=== PATIENT | male | born 1950 | race Caucasian/White ===

== ENCOUNTER 2023-04-12 10:48 | Outpatient (OUT) | payer MEDICARE, OTHER, SELFPAY ==
[2023-04-12 11:22] LABS: Basophils Percent Auto 0.3 % (0.2-2.0); Eosinophils Absolute Auto 0.2 10^3/uL (0.0-0.7); Eosinophils Percent Auto 2.8 % (0.9-7.0); Hematocrit 38.9 % (42.0-54.0); Hemoglobin 13.3 g/dL (14.0-18.0); Immature Granulocytes Abs Auto 0.01 10^3/uL (0.00-0.03); Immature Granulocytes Pct Auto 0.2 % (0.0-0.5); Lymphocytes Absolute Auto 2.2 10^3/uL (1.2-3.8); Lymphocytes Percent Auto 35.5 % (20.5-60.0); Mean Corpuscular HGB Conc 34.2 g/dL (29.9-35.2); Mean Corpuscular Hemoglobin 31.4 pg (25.9-34.0); Mean Corpuscular Volume 91.7 fL (80.0-94.0); Mean Platelet Volume 8.8 fL (9.5-13.5); Monocytes Absolute Auto 0.6 10^3/uL (0.3-0.8); Monocytes Percent Auto 9.1 % (1.7-12.0); Neutrophils Absolute Auto 3.2 10^3/uL (1.4-6.5); Neutrophils Percent Auto 52.1 % (43.0-75.0); Platelet Count 186 10^3/uL (150-450); Red Blood Count 4.24 10^6/uL (4.70-6.10); Red Cell Distribution Width 12.1 % (11.0-15.0); White Blood Count 6.1 10^3/uL (4.0-11.0)
[2023-04-12 12:09] LABS: Percent Iron Saturation 31.5 %
== END 2023-04-12 10:49 | disposition home or self-care (01) ==
LOC: LAB 10:54
PROVIDERS: PCP Internal Medicine; Visit Provider Internal Medicine
DX: D64.9 Anemia, unspecified (principal)
CPT/HCPCS: 36415; 82607; 82728; 82746; 83540; 83550; 85025

== ENCOUNTER 2023-05-07 14:47 | Outpatient (OUT) | payer MEDICARE, OTHER, SELFPAY ==
[2023-05-07 15:13] LABS: Basophils Percent Auto 0.5 % (0.2-2.0); Eosinophils Absolute Auto 0.2 10^3/uL (0.0-0.7); Eosinophils Percent Auto 3.8 % (0.9-7.0); Hemoglobin 13.7 g/dL (14.0-18.0); Immature Granulocytes Abs Auto 0.01 10^3/uL (0.00-0.03); Immature Granulocytes Pct Auto 0.2 % (0.0-0.5); Lymphocytes Absolute Auto 2.4 10^3/uL (1.2-3.8); Lymphocytes Percent Auto 39.9 % (20.5-60.0); Mean Corpuscular HGB Conc 34.3 g/dL (29.9-35.2); Mean Corpuscular Hemoglobin 31.5 pg (25.9-34.0); Mean Platelet Volume 8.3 fL (9.5-13.5); Monocytes Absolute Auto 0.7 10^3/uL (0.3-0.8); Monocytes Percent Auto 11.4 % (1.7-12.0); Neutrophils Absolute Auto 2.7 10^3/uL (1.4-6.5); Neutrophils Percent Auto 44.2 % (43.0-75.0); Platelet Count 199 10^3/uL (150-450); Red Blood Count 4.35 10^6/uL (4.70-6.10); White Blood Count 6.1 10^3/uL (4.0-11.0)
[2023-05-07 15:39] LABS: Percent Iron Saturation 36.6 %
[2023-05-07 15:47] LABS: Alanine Aminotransferase 26 U/L (16-63); Albumin Globulin Ratio 1.1; Albumin Level 3.9 g/dL (3.4-5.0); Alkaline Phosphatase 61 U/L (46-116); Anion Gap 9.6; Aspartate Amino Transferase 26 U/L (15-37); BUN Creatinine Ratio 15.3; Bilirubin Total 0.8 mg/dL (0.2-1.0); Calcium 8.4 mg/dL (8.5-10.1); Carbon Dioxide 30.3 mmol/L (21.0-32.0); Chloride 103 mmol/L (98-107); Estimated GFR (African America >60 (>=60); Estimated GFR (Non-African Ame >60 (>=60); Globulin 3.5 g/dL; Glucose 81 mg/dL (74-106); Potassium 3.9 mmol/L (3.5-5.1); Sodium 139 mmol/L (136-145); Total Protein 7.4 g/dL (6.4-8.2)
[2023-05-07 16:05] LABS: Creatinine Urine Random 19.84 mg/dL (20.00-300.00); Total Protein Urine Random <6.0 mg/dL (<=11.9)
== END 2023-05-07 14:48 | disposition home or self-care (01) ==
PROVIDERS: PCP Internal Medicine; Visit Provider Internal Medicine
DX: I10 Essential (primary) hypertension (principal); R60.1 Generalized edema; D64.9 Anemia, unspecified
CPT/HCPCS: 36415; 80053; 82570; 82607; 82728; 82746; 83540; 83550; 84156; 84443; 85025

== ENCOUNTER 2023-05-16 09:33 | Outpatient (OUT) | payer MEDICARE, OTHER, SELFPAY ==
--- NOTE | 2023-05-16 10:09 | CA_ITS ---
Patient: ROYAL BELLAMY Exam Date: 05/16/2023 : 1950 Gender:M Ordering : DR PEEWEE AALNIS D.O. Admission #: [id number] Family : Order #: [id number] CLICK HERE TO VIEW EXAM ECHOCARDIOGRAM REPORT PROCEDURE: CA ECHO DOPPLER COMPLETE INDICATIONS: Arteriosclerotic heart disease, edema, heart murmur, hypertension, myocardial infarct, PTCAx1 COMPARISON: None. DESCRIPTION: COMPLETE ECHOCARDIOGRAM Real-time transthoracic echocardiography with 2D, M-mode, spectral and color flow Doppler performed. QUALITY: Technical quality was good. LEFT VENTRICLE: Normal chamber size. Mild concentric left ventricular hypertrophy. LV EF: Global left ventricular systolic function is normal; visually estimated ejection fraction is 55 to 60%. No significant wall motion abnormalities. DIASTOLIC: Normal diastolic function. ATRIAL SEPTUM: Inadequately seen. LEFT ATRIUM: Normal chamber size. RIGHT ATRIUM: Normal chamber size. RIGHT VENTRICLE: Normal chamber size. Normal right ventricular systolic function. TRICUSPID VALVE: Normal mobility and thickness. Mild regurgitation. No evidence of pulmonary hypertension. RVSP 34 mmHg MITRAL VALVE: Normal mobility and thickness. No evidence of mitral valve stenosis. There is no mitral annular calcification. Mild mitral regurgitation. AORTIC VALVE: Normal trileaflet appearance. No visible sclerosis. Normal leaflet mobility. No evidence of aortic valve stenosis. No aortic regurgitation. AORTIC ROOT: Normal diameter and appearance. PULMONIC VALVE: Normal thickness and mobility. No stenosis. Trivial regurgitation. PERICARDIUM: No evidence of pericardial effusion. IVC: Collapses with inspirations. PLEURA: CONCLUSION: 1. Global left ventricular systolic function is normal; visually estimated ejection fraction is 55 to 60% 2. Mild left ventricular hypertrophy 3. Normal diastolic function 4. The right ventricle is normal in size and systolic function 5. Mild mitral regurgitation Adult Echocardiography Procedure Report Left Ventricle LVEDD (3.7 - 5.6 cm): 5.55 cm LVESD (2.2 - 4.0 cm): 4.30 cm LVIVS thickness (0.6 - 1.2 cm): 1.24 cm LVPW thickness (0.5 - 1.0 cm): 1.11 cm e': 0.11 m/s E - e': 6.54 LVOT Max Gradient: 3.57 mm[Hg] LVOT Area (cm2): 0.95 m/s Peak Velocity (LVOT): 0.95 m/s Mean Velocity (LVOT): 0.63 m/s LVOT Diameter 2.50 cm Left Atrium LA Volume Index (2D A2C): 31.46 ml/m2 Left Atrium Systolic Dimension: 5.12 cm Mitral Valve MV E to A Ratio: 0.90 Mitral Valve A-Wave Peak Velocity: 0.78 m/s Mitral Valve E-Wave Peak Velocity: 0.70 m/s Right Ventricle Aorta AO Root Diam: 4.06 cm Ascending Ao Diam: 3.34 cm Aortic Valve AoV Area (Peak Levi): 3.71 cm2, 3.71 cm2 AoV Area (VTI): 3.42 cm2, 3.42 cm2 Peak Velocity(Antegrade Flow): 1.25 m/s Peak Gradient(Antegrade Flow): 6.27 mm[Hg] Mean Velocity(Antegrade Flow): 0.89 m/s Mean Gradient(Antegrade Flow): 3.55 mm[Hg] Velocity Time Integral: 32.27 cm Tricuspid Valve Peak Velocity (Regurgitant Flow): 2.78 m/s Pulmonic Valve Peak Velocity: 1.37 m/s Peak Gradient: 7.52 mm[Hg], 7.41 mm[Hg] Right Atrium Right Atrium Systolic Pressure: 34.52 ml, 34.52 ml Dictated by: Leonel Hassan M.D. on 05/16/2023 at 13:42 Approved by: Leonel Hassan M.D. on 05/16/2023 at 13:45
== END 2023-05-16 09:34 | disposition home or self-care (01) ==
LOC: CARD 09:34
PROVIDERS: PCP Internal Medicine; Visit Provider Internal Medicine
DX: I25.10 Atherosclerotic heart disease of native coronary artery without angina pectoris (principal); R60.1 Generalized edema; R01.1 Cardiac murmur, unspecified; I34.0 Nonrheumatic mitral (valve) insufficiency
CPT/HCPCS: 93306

== ENCOUNTER 2023-06-10 08:48 | Outpatient (OUT) | payer MEDICARE, OTHER, SELFPAY ==
--- NOTE | 2023-06-10 08:50 | VEIN_ITS ---
Patient: ROYAL BELLAMY Exam Date: 06/10/2023 : 1950 Gender:M Ordering : DR JARED WEST M.D. Admission #: [id number] Family : Order #: [id number] CLICK HERE TO VIEW EXAM RADIOLOGY REPORT PROCEDURE: VC EXT VENOUS REFLUX ANNALEE LMTD COMPARISON: None. INDICATIONS: Pain due to varicose veins of bilateral legs I83.813 TECHNIQUE: Duplex imaging of the lower extremity to assess the deep and superficial venous system for the presence of deep or superficial venous incompetence and to document the location and severity of disease. The study includes evaluation of the great saphenous vein (GSV), anterior accessory saphenous vein (AASV) and small saphenous vein (SSV). Patient scanned in reverse Trendelenburg and standing. FINDINGS: RIGHT LOWER EXTREMITY: Saphenofemoral Junction Reflux: Yes 6.0mm 1.3 sec GSV: Diam (mm) Reflux/ Time (sec) Proximal Thigh 3.1 No Mid Thigh 2.1 Yes 0.4 Distal Thigh 1.7 No Prox Calf 2.7 Yes 0.5 Mid Calf 3.6 No Saphenopopliteal Junction Reflux: 5.9mm Yes 1.3 SSV: Proximal Calf 5.6 Yes 0.7 Mid Calf 5.4 Yes 1.5 AASV: Proximal Thigh 3.1 No Mid Thigh Distal Thigh Thrombi: No acute or chronic thrombus visualized Compressibility: Normal Flow: Normal Manufacturing Intern: Mid/med calf 4.4mm with 0.5s reflux. Tech Note: Incompetent SFJ and SSV. Patent varicose vein prox/med calf 2.9mm with 0.7s reflux. Patent varicose vein dist/post calf 2.2mm with 1.1s reflux. LEFT LOWER EXTREMITY: Saphenofemoral Junction Reflux: Yes 6.0 mm 1.2 sec GSV: Diam (mm) Reflux/Time (sec) Proximal Thigh 4.4 No Mid Thigh 3.5 No Distal Thigh 1.4 No Prox Calf 2.5 No Mid Calf 2.4 No Saphenopopliteal Junction Relux: 6.2 mm Yes 1.4 SSV: Proximal Calf 2.8 No Mid Calf 3.0 No AASV: Not present Thrombi: No acute or chronic thrombus visualized Compressibility: Flow: Manufacturing Intern: Mid/med calf 2.9mm with 0s reflux. Tech Note: Incompetent SPJ. Patent varicose vein mid/med calf 2.1mm with 0.6s reflux. CONCLUSION: 1. Mild venous insufficiency with borderline dilatation of the right small saphenous vein 2. Saphenopopliteal junction reflux in the left small saphenous vein 3. No significant incompetent varicose veins Dictated by: Jared West MD on 06/10/2023 at 09:52 Approved by: Jared West MD on 06/10/2023 at 09:54
--- NOTE | 2023-06-10 08:50 | VEIN_ITS ---
Patient: ROYAL EBLLAMY Exam Date: 06/10/2023 : 1950 Gender:M Ordering : DR JARED WEST M.D. Admission #: [id number] Family : Order #: [id number] CLICK HERE TO VIEW EXAM RADIOLOGY REPORT PROCEDURE: [facility] - OFFICE VISIT INITIAL COMPARISON: None. PROGRESS NOTES: 72-year-old male who presents with a 2 year history of lower extremity pain and swelling and varicose veins. The patient was referred by Dr. Cecilio horne. The patient has been worked up for cardiovascular disease by cardiology with no findings. The patient has been wearing [id number] compression stockings for 6 months with minimal improvement. Patient's symptoms are exacerbated by prolonged sitting and standing and are partially relieved by rest, leg elevation and over the counter oral analgesics. 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 The patient's daughter works in healthcare. The patient denies any signs and symptoms to suggest arterial ischemia. The patient describes a family history significant for aortic aneurysm. The patient quit smoking in 1984. Social alcohol use. No illicit drug use. The patient's past medical history significant for hyperlipidemia of benign hypertension, BPH. Past surgical history significant for cardiac stenting in 2001 left inguinal hernia and cholecystectomy. No history of deep venous thrombus or pulmonary embolus. The patient does complain of bunions which has affected his ability to walk, the patient L exercises with stationary bike and rowing machine. See separate history and physical for medication list. No prior treatment for varicose or spider veins. Nursing notes were reviewed. After history and physical exam I discussed at length the pathophysiology of lower extremity swelling and possible treatments, therapies and strategies available. I believe the patient's symptoms are likely multifactorial related to age, genetics and hypertension with possible mild connection to veins in the right ankle and foot. No significant venous disease that requires treatment at this time. The patient has mild venous insufficiency in the right small saphenous vein but no symptoms in this area Ultrasound venous reflux study performed the same day was discussed at length with the patient. The report demonstrates mild venous insufficiency right small saphenous vein. No significant dilated varicose veins. PHYSICAL EXAM: The right leg demonstrates moderate reticular and spider veins most significant along the right ankle and hindfoot. There is moderate, pitting edema distal 3rd of the right leg extending to the ankle. No hemosiderin staining or ulceration. The left leg demonstrates scattered reticular and spider veins. There is mild edema distal 3rd of the left leg extending to the ankle. No hemosiderin staining or ulceration. Both thighs, legs and feet were symmetrically warm to the touch. Good posterior tibial and dorsalis pedis pulses were present bilaterally. VEIN/VC Facility EST Comprehensive IMPRESSION: 1. Mild right small saphenous vein venous insufficiency 2. No significant lower extremity varicose veins, moderate right medial ankle and hindfoot reticular veins 3. Moderate right and mild left lower extremity subcutaneous edema 4. No flow significant arterial disease 5. CEAP: C3, Ep, As, Pr PLAN: 1. Injection sclerotherapy of right medial ankle and foot reticular veins 2. Long-term use of bilateral knee high 20-30 mm compression stockings 3. Continued elevation of legs and physical activity for symptomatic relief Nurse notes, history and physical were reviewed and confirmed, see attached forms. The nurse was present throughout the physical exam and consultation Dictated by: Jared West MD on 06/10/2023 at 13:52 Approved by: Jared West MD on 06/10/2023 at 14:06
== END 2023-06-10 08:49 | disposition home or self-care (01) ==
LOC: VC 08:48
PROVIDERS: PCP Internal Medicine; Visit Provider Radiology Diagnostic Radiology
DX: I87.2 Venous insufficiency (chronic) (peripheral) (principal); I83.813 Varicose veins of bilateral lower extremities with pain
CPT/HCPCS: 93970; G0463

== ENCOUNTER 2024-01-24 06:59 | Outpatient (OUT) | payer MEDICARE, OTHER, SELFPAY ==
[2024-01-24 07:20] LABS: Basophils Percent Auto 0.5 % (0.2-2.0); Eosinophils Absolute Auto 0.2 10^3/uL (0.0-0.7); Eosinophils Percent Auto 3.5 % (0.9-7.0); Hematocrit 39.7 % (42.0-54.0); Hemoglobin 13.2 g/dL (14.0-18.0); Immature Granulocytes Abs Auto 0.01 10^3/uL (0.00-0.03); Immature Granulocytes Pct Auto 0.2 % (0.0-0.5); Lymphocytes Percent Auto 33.9 % (20.5-60.0); Mean Corpuscular HGB Conc 33.2 g/dL (29.9-35.2); Mean Corpuscular Hemoglobin 31.2 pg (25.9-34.0); Mean Corpuscular Volume 93.9 fL (80.0-94.0); Mean Platelet Volume 8.8 fL (9.5-13.5); Monocytes Absolute Auto 0.7 10^3/uL (0.3-0.8); Monocytes Percent Auto 11.8 % (1.7-12.0); Neutrophils Percent Auto 50.1 % (43.0-75.0); Platelet Count 196 10^3/uL (150-450); Red Blood Count 4.23 10^6/uL (4.70-6.10); Red Cell Distribution Width 12.3 % (11.0-15.0); White Blood Count 5.9 10^3/uL (4.0-11.0)
[2024-01-24 07:55] LABS: Alanine Aminotransferase 25 U/L (16-63); Albumin Level 3.5 g/dL (3.4-5.0); Alkaline Phosphatase 72 U/L (46-116); Anion Gap 12.5; Aspartate Amino Transferase 25 U/L (15-37); Calcium 8.9 mg/dL (8.5-10.1); Carbon Dioxide 25.6 mmol/L (21.0-32.0); Chloride 104 mmol/L (98-107); Chol HDL Ratio 1.9; Cholesterol 110 mg/dL (<=200); Estimated GFR (African America >60 (>=60); Estimated GFR (Non-African Ame >60 (>=60); Globulin 3.4 g/dL; Glucose 114 mg/dL (74-106); HDL Cholesterol 59 mg/dL (40-60); LDL Cholesterol Calculated 42.4 mg/dL; Potassium 4.1 mmol/L (3.5-5.1); Sodium 138 mmol/L (136-145); Thyroid Stimulating Hormone 3.854 uIU/mL (0.358-3.740); Total Protein 6.9 g/dL (6.4-8.2); Triglycerides 43 mg/dL (<=150); VLDL CHOLESTEROL 8.6 mg/dL
[2024-01-24 08:38] LABS: Prostate Specific Antigen Scrn 0.49 ng/mL (<=4.00)
== END 2024-01-24 07:00 | disposition home or self-care (01) ==
LOC: LAB 07:02
PROVIDERS: PCP Internal Medicine; Visit Provider Internal Medicine
DX: Z12.5 Encounter for screening for malignant neoplasm of prostate (principal); E03.9 Hypothyroidism, unspecified; I25.10 Atherosclerotic heart disease of native coronary artery without angina pectoris; N40.1 Benign prostatic hyperplasia with lower urinary tract symptoms; E78.00 Pure hypercholesterolemia, unspecified; I10 Essential (primary) hypertension
CPT/HCPCS: 36415; 80053; 80061; 84443; 85025; G0103

== ENCOUNTER 2024-03-09 06:51 | Outpatient (OUT) | payer MEDICARE, OTHER, SELFPAY ==
--- OUTSIDE RECORDS SUMMARY | 2024-03-09 06:55 | XMS_ITS | CCD ---
Author Organization [facility] Care Team Providers Care Admissions Representative Name Role Phone Keith Lima DO Primary Care Provider BABIUCH, MOUNA Referring Unavailable BABIUCH, MOUNA Attending Unavailable BALL, KEITH Queen Primary Care Unavailable BABIUCH, MOUNA Attending Unavailable BABIUCH, MOUNA Referring Unavailable BALL, KEITH Queen Primary Care Unavailable BALL, KEITH Queen Primary Care Unavailable BABIUCH, MOUNA Attending Unavailable BABIUCH, MOUNA Referring Unavailable BABIUCH, MOUNA Attending Unavailable BALL, KEITH Queen Primary Care Unavailable BABIUCH, MOUNA Attending Unavailable BABIUCH, MOUNA Referring Unavailable BALL, KEITH Queen Primary Care Unavailable BABIUCH, MOUNA Referring Unavailable BABIUCH, MOUNA Attending Unavailable BALL, KEITH Queen Primary Care Unavailable Keith Lima DO Primary Care Provider Keith Lima Unavailable REQUEST, DR TUCKER LISTED Attending Unavaila ble REQUEST, DR TUCKER LISTED Consulting Unavaila ble REQUEST, DR TUCKER LISTED Admitting Unavaila ble BALL, DR VIDES Primary Care Unavailable BALL, DR VIDES Attending Unavailable BALL, DR VIDES Consulting Unavailable BALL, DR VIDES Primary Care Unavailable BALL, DR VIDES Admitting Unavailable BALL, DR VIDES Attending Unavailable BALL, DR VIDES Consulting Unavailable BALL, DR VIDES Primary Care Unavailable BALL, DR VIDES Admitting Unavailable Allergies Allergy Classification Reported Allergen(s) Allergy Type Date of Onset Reaction(s) Facility (10 sources) Penicillins; Translations: [PENICILLINS] Drug Allergy 5 [facility] (20 sources) Sulfonamides (Antibiotic); Translations: [SULFA (SULFONAMIDE ANTIBIOTICS)] Drug Allergy 8 [facility] (4 sources) Penicillin Drug Allergy Unknown [facility] Other (1 source) Penicillins Drug allergy (disorder) 6 [facility] (1 source) Sulfonamides (Antibiotic) Drug allergy (disorder) 6 [facility] (7 sources) Substance with penicillin structure and antibacterial mechanism of action (substance) Drug allergy Unknown [facility] Other Medications Current Medications Medication Drug Class(es) Dates Sig (Normalized) Sig (Original) atorvastatin 80 mg oral tablet (20 sources) HMG-CoA Reductase Inhibitor take 1 tablet by mouth every twenty-four hours Atorvastatin Calcium 80 MG 1 tablet Orally Once a day Active Comment on above: Take 80 mg by mouth once daily. benoxinate hydrochloride 4 mg/ml / fluorescein sodium 2.5 mg/ml ophthalmic solution (4 sources) Diagnostic Dye Start: 12-11-2022 End: 12-11-2022 fluorescein-benoxi nena 0.25-0.4 % 1 Drop (FLURESS) Start: 07-17-2022 End: 07-17-2022 fluorescein-benoxinate 0.25- 0.4 % 1 Drop (FLURESS) Start: 05-29-2022 End: 05-29-2022 fluorescein-benoxinate 0.25- 0.4 % 1 Drop (FLURESS) Start: 04-03-2022 End: 04-03-2022 fluorescein-benoxinate 0.25- 0.4 % 1 Drop (FLURESS) ciprofloxacin 3 mg/ml ophthalmic solution (1 source) Quinolone Antimicrobial Start: 11-04-2023 take 2 drop(s) into the eye(s) four times daily Ciprofloxacin HCl 0.3 % 2 drops in affected eye Ophthalmic qid for 5 days Oct, Active levothyroxine sodium 0.05 mg oral tablet (5 sources) l-Thyroxine Start: 05-14-2023 take 1 tablet by mouth once daily in the morning Levothyroxine Sodium 50 MCG 1 tablet in the morning on an empty stomach Orally Once a day for 30 days Apr, Active take 1 tablet by iam th once daily in the morning Levothyroxine Sodium 50 MCG TAKE 1 TABLE T BY MOUTH EVERY DAY IN THE MORNING ON AN EMPTY STOMACH FOR 30 DAYS Active phenylephrine hydrochloride 25 mg/ml ophthalmic solution (4 sources) alpha-1 Adrenergic Agonist Start: 12-11-2022 End: 12-11-2022 PHENYLephrine 2.5 % 1 Drop (AK-DILATE, DAO-SYNEPHRINE) Start: 07-17-2022 End: 07-17-2022 PHENYLephrine 2.5 % 1 Drop ( AK-DILATE, DAO-SYNEPHRINE) Start: 05-29-2022 End: 05-29-2022 PHENYLephrine 2.5 % 1 Drop ( AK-DILATE, DAO-SYNEPHRINE) Start: 04-03-2022 End: 04-03-2022 PHENYLephrine 2.5 % 1 Drop ( AK-DILATE, DAO-SYNEPHRINE) proparacaine hydrochloride 5 mg/ml ophthalmic solution (2 sources) Local Anesthetic Start: 05-29-2022 End: 05-29-2022 proparacaine 0.5 % 1 Drop (ALCAINE) Start: 04-03-2022 End: 04-03-2022 proparacaine 0.5 % 1 Drop (A LCAINE) ramipril 5 mg oral capsule (20 sources) Angiotensin Converting Enzyme Inhibitor take 1 capsule by mouth every twenty-four hours Ramipril 5 MG 1 capsule Orally Once a day Active Comment on above: Take 5 mg by mouth o nce daily. tropicamide 10 mg/ml ophthalmic solution (4 sources) Anticholinergic Start: 023 End: 023 tropicamide 1 % 1 Drop (MYDRIACYL) Start: 07-17-2022 End: 07-17-2022 tropicamide 1 % 1 Drop (MYDR IACYL) Start: 05-29-2022 End: 05-29-2022 tropicamide 1 % 1 Drop (MYDR IACYL) Start: 04-03-2022 End: 04-03-2022 tropicamide 1 % 1 Drop (MYDR IACYL) Completed/Discontinued Medications Medication Drug Class(es) Dates Sig (Normalized) Sig (Original) aspirin 81 mg oral tablet (20 sources) Platelet Aggregation Inhibitor, Nonsteroidal Anti-inflammatory Drug Start: 10-26-2004 ASPIRIN 81 MG TABLET Take one (1) tablet daily . 0 10/26/2004 Active take 1 tablet by iam th every twenty-four hours Aspirin 81 81 MG 1 tablet Orally Once a day Active Comment on above: Take one (1) tablet daily . bimatoprost (6 sources) Prostaglandin Analog End: take 1 drop(s) into the eye(s) once daily at bedtime BIMATOPROST (LUMIGAN OPHTHALMIC) Use 1 Drop in eyes daily at bedtime. 1 drop both eyes at bedtime 0 07/17/2022 Discontinued take 1 drop(s) into the eye(s) once daily at bedtime BIMATOPROST (LUMIGAN OPHTHALMIC) Use 1 D rop in eyes daily at bedtime. 1 drop both eyes at bedtime 0 Active Comment on above: Use 1 Drop in eyes d aily at bedtime. 1 drop both eyes at bedtime brimonidine tartrate 2 mg/ml / timolol 5 mg/ml ophthalmic solution (9 sources) alpha-Adrenergic Agonist, beta-Adrenergic Dario Start: 04-09-2022 End: 09-11-2022 take 1 drop(s) into the eye(s) twice daily COMBIGAN 0.2-0.5 % ophthalmic solution Indications: S/P cataract extraction and insertion of intraocular lens, right , S/P cataract extraction and insertion of intraocular lens, left Use 1 Drop in both eyes twice daily. 1 mL 3 04/09/2022 09/11/2022 Discontinued Start: 08-23-2021 End: 04-09-2022 COMBIGAN 0.2-0.5 % ophthalmi c solution Comment on above: Use 1 Drop in both e yes twice daily. doxycycline hyclate 100 mg oral capsule (11 sources) Tetracycline-class Drug Start: 01-02-20 take 1 capsule by mouth twice daily as needed Doxycycline Hyclate 100 MG 1 capsule Orally twice daily for 5 days Dec, Not-Taking/PRN FA/mv,Ca,iron,min/ly copene/lut (MULTIVITAL ORAL) (9 sources) take 1 tablet by mouth once daily FA/mv,Ca,iron,min/ly copene/lut (MULTIVITAL ORAL) Take 1 tablet by mouth once daily. 0 Active Comment on above: Take 1 tablet by iam once daily. ketorolac tromethamine 5 mg/ml ophthalmic solution (6 sources) Nonsteroidal Anti-inflammatory Drug, Cyclooxygenase Inhibitor Start: 10-13-19 End: 07-17-20 keTORolac (ACULAR) 0.5 % ophthalmic solution prednisoLONE acetate 10 mg/ml ophthalmic suspension (15 sources) Corticosteroid Start: 07-11-20 End: 07-17-20 prednisoLONE acetate (PRED FORTE, ECONOPRED PLUS) 1 % ophthalmic suspension USE DIRECTED BY PHYSICIAN, IN OPERATIVE EYE, BEGINNING ONE DAY AFTER SURGERY 5 mL 0 07/25/2021 Active Comment on above: USE DIRECTED BY Lucina DOHERTY, IN OPERATIVE EYE, BEGINNING ONE DAY AFTER SURGERY 12 hr timolol 5 mg/ml ophthalmic solution (2 sources) beta-Adrenergic Dario Start: 09-11-20 timolol maleate (TIMOPTIC) 0.5 % ophthalmic solution Use 1 Drop in both eyes twice daily. 5 mL 11 09/11/2022 Active Comment on above: Use 1 Drop in both e yes twice daily. Problems Active Problems Problem Classification Problem Date Documented Da te Episodic/Chronic Acute bronchitis (5 sources) Acute bronchitis; Translations: [Acute bronchitis due to other specified organisms] Episodic Coronary atherosclerosis and other heart disease (20 sources) Coronary atherosclerosis; Translations: [Atherosclerotic heart disease of [place] coronary artery without angina pectoris] Onset: 01-16-2023 07-05-2021 Chronic Deficiency and other anemia (16 sources) Anemia; Translations: [Anemia, unspecified] Episodic Deficiency and other anemia (5 sources) Anemia, unspecified; Translations: [ANEMIA UNSPECIFIED] Onset: 04-19-2022 Episodic Disorders of lipid metabolism (20 sources) Hyperlipidemia; Translations: [Hyperlipidemia, unspecified] Onset: 12-24-2013 Resolved: 05-17-2020 07-05-2021 Chronic Essential hypertension (20 sources) Hypertensive disorder; Translations: [Essential (primary) hypertension] Onset: 01-16-2023 07-05-2021 Chronic Genitourinary symptoms and ill-defined conditions (11 sources) Nocturia; Translations: [Nocturia] Episodic Glaucoma (20 sources) Open-angle glaucoma of left eye; Translations: [Primary open-angle glaucoma, left eye, indeterminate stage] Onset: 12-13-2017 12-13-2017 Chronic Hyperplasia of prostate (20 sources) Nocturia due to benign prostatic hypertrophy; Translations: [Benign prostatic hyperplasia with lower urinary tract symptoms] Onset: 12-24-2013 Resolved: 05-17-2020 Chronic Immunizations and screening for infectious disease (10 sources) Vaccination given; Translations: [Encounter for immunization] Episodic Inflammation; infection of eye (except that caused by tuberculosis or sexually transmitteddisease) (1 source) Unspecified acute conjunctivitis, bilateral Episodic Lymphadenitis (16 sources) Anterior cervical lymphadenopathy; Translations: [Localized enlarged lymph nodes] Episodic Other aftercare (11 sources) H/O: high risk medication; Translations: [Other detention (current) drug therapy] Episodic Other aftercare (2 sources) Other intermediate school teacher (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) drug therapy; Translations: [OTH USP CURRENT DRUG THERAPY] Onset: 01-16-2023 Episodic Other aftercare (5 sources) Long-term current use of drug therapy; Translations: [Other intermediate school teacher (current) drug therapy] Episodic Other diseases of veins and lymphatics (5 sources) Peripheral venous insufficiency; Translations: [Venous insufficiency (chronic) (peripheral)] Episodic Other diseases of veins and lymphatics (2 sources) Venous insufficiency (chronic) (peripheral) Episodic Other diseases of veins and lymphatics (2 sources) Venous insufficiency of leg; Translations: [Venous insufficiency (chronic) (peripheral)] Episodic Other ear and sense organ disorders (14 sources) Cellulitis of left external ear; Translations: [Cellulitis of left external ear] Episodic Other eye disorders (1 source) H/O: R cataract extraction; Translations: [Cataract extraction status, right eye] Episodic Other eye disorders (1 source) H/O: L cataract extraction; Translations: [Cataract extraction status, left eye] Episodic Other injuries and conditions due to external causes (5 sources) History of fall; Translations: [History of falling] Episodic Other nervous system disorders (9 sources) Lesion of ulnar nerve; Translations: [Lesion of ulnar nerve, unspecified upper limb] Onset: 10-26-2004 10-26-2004 Chronic Other nervous system disorders (9 sources) Lesion of median nerve; Translations: [Other lesions of median nerve, unspecified upper limb] Onset: 01-09-2005 01-09-2005 Chronic Other nutritional; endocrine; and metabolic disorders (17 sources) Overweight; Translations: [Overweight] Episodic Other nutritional; endocrine; and metabolic disorders (1 source) Overweight Episodic Other screening for suspected conditions (not mental disorders or infectious disease) (2 sources) Encounter for screening for malignant neoplasm of prostate; Translations: [ENC SCREEN MALIG NEOPLASM PROSTATE] Onset: 01-16-2023 Episodic Other skin disorders (1 source) Dyshidrosis [pompholyx] Episodic Retinal detachments; defects; vascular occlusion; and retinopathy (6 sources) Cystoid macular edema of right retina; 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, 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 Substance-related disorders (17 sources) Tobacco dependence in remission; Translations: [Nicotine dependence, cigarettes, in remission] Chronic Superficial injury; contusion (10 sources) Abrasion of scalp; Translations: [Abrasion of scalp, initial encounter] Episodic Thyroid disorders (12 sources) Autoimmune thyroiditis; Translations: [Autoimmune thyroiditis] Chronic Past or Other Problems Problem Classification Problem Date Documented Da te Episodic/Chronic Malaise and fatigue (5 sources) Malaise; Translations: [Other malaise] Onset: 12-24-2013 Episodic Other acquired deformities (9 sources) Acquired claw hand; 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, unspecified hand] Onset: 10-26-2004 10-26-2004 Episodic Viral infection (1 source) COVID-19 Results Test Name Value Interpretation Reference Range Facil ity CBC AUTO DIFFon 01-10-2023 BASO # 0.0 103/ul Normal 0.0-0.1 [facility] Comment on above: Performed By: #### C BC #### [facility] [address] [place] [address] Dr. Winter Corona Basophils/100 WBC (Bld) 0.6 % Normal 0.2-2.0 [facility] Comment on above: Performed By: #### C BC #### [facility] [address] [place] [address] Dr. Winter Corona EO # 0.2 103/ul Normal 0.0-0.7 [facility] Comment on above: Performed By: #### C BC #### [facility] [address] [place] [address] Dr. Winter Corona Eosinophils/100 WBC (Bld) 2.2 % Normal 0.9-7.0 [facility] Comment on above: Performed By: #### C BC #### [facility] [address] [place] [address] Dr. Winter Corona Erythrocyte distribution width (RBC) [Ratio] 12.1 % Normal 11.0-15.0 [facility] Comment on above: Performed By: #### C BC #### [facility] [address] [place] [address] Dr. Winter Corona Hematocrit (Bld) [Volume fraction] 41.7 % Critically low 42.0-54.0 [facility] Comment on above: Performed By: #### C BC #### [facility] [address] [place] [address] Dr. Winter Corona Hemoglobin (Bld) [Mass/Vol] 13.9 g/dL Critically low 14.0-18.0 [facility] Comment on above: Performed By: #### C BC #### [facility] [address] [place] [address] Dr. Winter Corona IG # 0.02 10e3/ul Normal 0.00-0.03 [facility] Comment on above: Performed By: #### C BC #### [facility] [address] [place] [address] Dr. Winter Corona IG % 0.3 % Normal 0.0-0.5 [facility] Comment on above: Performed By: #### C BC #### [facility] [address] [place] [address] Dr. Winter Corona LYMPH # 2.3 103/ul Normal 1.2-3.8 [facility] Comment on above: Performed By: #### C BC #### [facility] [address] [place] [address] Dr. Winter Corona Lymphocytes/100 WBC (Bld) 31.5 % Normal 20.5-60.0 [facility] Comment on above: Performed By: #### C BC #### [facility] [address] [place] [address] Dr. Winter Corona MANUAL DIFF REQ NO Normal [facility] Comment on above: Performed By: #### C BC #### [facility] [address] [place] [address] Dr. Winter Corona MCH (RBC) [Entitic mass] 31.2 pg Normal 25.9-34.0 [facility] Comment on above: Performed By: #### C BC #### [facility] [address] [place] [address] Dr. Winter Corona MCHC (RBC) [Mass/Vol] 33.3 g/dL Normal 29.9-35.2 [facility] Comment on above: Performed By: #### C BC #### [facility] [address] [address] [address] Winter Corona MCV (RBC) [Entitic vol] 93.5 fL Normal 80.0-94.0 [facility] Comment on above: Performed By: #### C BC #### [facility] [address] [address] [address] Winter Corona MONO # 0.7 103/ul Normal 0.3-0.8 [facility] Comment on above: Performed By: #### C BC #### [facility] [address] [address] [address] Winter Corona Monocytes/100 WBC (Bld) 10.2 % Normal 1.7-12.0 [facility] Comment on above: Performed By: #### C BC #### [facility] [address] [place] [address] Dr. Winter Corona NEUT # 3.9 103/ul Normal 1.4-6.5 [facility] Comment on above: Performed By: #### C BC #### [facility] [address] [place] [address] Dr. Winter Corona Neutrophils/100 WBC (Bld) 55.2 % Normal 43.0-75.0 [facility] Comment on above: Performed By: #### C BC #### [facility] [address] [address] [address] Winter Corona Platelet mean volume (Bld) [Entitic vol] 8.6 fL Critically low 9.5-13.5 [facility] Comment on above: Performed By: #### C BC #### [facility] [address] [address] [address] Winter Corona PLT 203 103/ul Normal 150-450 [facility] Comment on above: Performed By: #### C BC #### [facility] [address] [place] [address] Dr. Winter Corona RBC 4.46 106/ul Critically low 4.70-6.10 [facility] Comment on above: Performed By: #### C BC #### [facility] [address] [address] [address] Winter Corona WBC 7.1 103/ul Normal 4.0-11.0 [facility] Comment on above: Performed By: #### C BC #### [facility] [address] [address] [address] Winter Corona LIPID PROFILEon 01-10-2023 CHOL-HDL RATIO NORM SEE BELOW Normal [facility] Comment on above: Result Comment: 3.3 - 4.4 LOW RISK 4.4 - 7.1 AVERAGE RISK 7.1 - 11.0 MODERATE RISK >11.0 HIGH RISK Performed By: #### B MP, ALT, LIPID #### [facility] [address] [place] [address] Dr. Winter Corona Cholesterol [Mass/Vol] 110 mg/dL Normal <=200 [facility] Comment on above: Performed By: #### B MP, ALT, LIPID #### [facility] [address] [place] [address] Dr. Winter Corona Cholesterol in HDL [Mass/Vol] 55 mg/dL Normal 40-60 [facility] Comment on above: Performed By: #### B MP, ALT, LIPID #### [facility] [address] [place] [address] Dr. Winter Corona Cholesterol in LDL [Mass/Vol] 44.0 mg/dL Normal [facility] Comment on above: Performed By: #### B MP, ALT, LIPID #### [facility] [address] [place] [address] Dr. Winter Corona Cholesterol.total/Cho lesterol in HDL [Mass ratio] 2.0 {ratio} Normal [facility] Comment on above: Performed By: #### B MP, ALT, LIPID #### [facility] [address] [place] [address] Dr. Winter Corona HDL NORMAL > or = 60 mg/dl - LOW CARDIOVASCULAR RISK <40 mg/dl - HIGH CARDIOVASCULAR RISK Normal [facility] Comment on above: Performed By: #### B MP, ALT, LIPID #### [facility] [address] [address] [address] Winter Corona LDL CALC NORMAL SEE BELOW Normal [facility] Comment on above: Result Comment: <100 mg/dl OPTIMAL 100 - 129 mg/dl NEAR OR ABOVE OPTIMAL 130 - 159 mg/dl BORDERLINE HIGH 160 - 189 mg/dl HIGH >190 mg/dl VERY HIGH Performed By: #### B MP, ALT, LIPID #### [facility] [address] [address] [address] Winter Corona Triglyceride [Mass/Vol] 55 mg/dL Normal <=150 [facility] Comment on above: Performed By: #### B MP, ALT, LIPID #### [facility] [address] [address] [address] Winter Corona VLDL CALC 11.0 mg/dL Normal [facility] Comment on above: Performed By: #### B MP, ALT, LIPID #### [facility] [address] [address] [address] Winter Corona PROF CHEM 8 (BAS METB)on Anion gap [Moles/Vol] 11.0 mmol/L Normal [facility] Comment on above: Performed By: #### B MP, ALT, LIPID #### [facility] [address] [address] [address] Winter Corona Calcium [Mass/Vol] 9.1 mg/dL Normal 8.5-10.1 [facility] Comment on above: Performed By: #### B MP, ALT, LIPID #### [facility] [address] [address] [address] Winter Corona Chloride [Moles/Vol] 107 mmol/L Normal 98-107 [facility] Comment on above: Performed By: #### B MP, ALT, LIPID #### [facility] [address] [place] [address] Dr. Winter Corona CO2 [Moles/Vol] 28.2 mmol/L Normal 21.0-32.0 [facility] Comment on above: Performed By: #### B MP, ALT, LIPID #### [facility] [address] [place] [address] Dr. Winter Corona Creatinine [Mass/Vol] 0.95 mg/dL Normal 0.70-1.30 [facility] Comment on above: Performed By: #### B MP, ALT, LIPID #### [facility] [address] [address] [address] Winter Corona EGFR-AF BURMESE >60 Normal >=60 [facility] Comment on above: Performed By: #### B MP, ALT, LIPID #### [facility] [address] [address] [address] Winter Corona EGFR-NON AF BURMESE >60 Normal >=60 [facility] Comment on above: Performed By: #### B MP, ALT, LIPID #### [facility] [address] [address] [address] Winter Corona Glucose [Mass/Vol] 97 mg/dL Normal 74-106 [facility] Comment on above: Performed By: #### B MP, ALT, LIPID #### [facility] [address] [address] [address] Winter Corona Potassium [Moles/Vol] 4.2 mmol/L Normal 3.5-5.1 [facility] Comment on above: Performed By: #### B MP, ALT, LIPID #### [facility] [address] [place] [address] Dr. Winter Corona Sodium [Moles/Vol] 142 mmol/L Normal 136-145 [facility] Comment on above: Performed By: #### B MP, ALT, LIPID #### [facility] [address] [place] [address] Dr. Winter Corona Urea nitrogen [Mass/Vol] 14.0 mg/dL Normal 7.0-18.0 [facility] Comment on above: Performed By: #### B MP, ALT, LIPID #### [facility] [address] [place] [address] Dr. Winter Corona Urea nitrogen/Creatinine [Mass ratio] 14.7 mg/mg Normal [facility] Comment on above: Performed By: #### B MP, ALT, LIPID #### [facility] [address] [address] [address] Winter Corona Sandra 01-10-2023 ALT [Catalytic activity/Vol] 32 U/L Normal 16-63 [facility] Comment on above: Performed By: #### B MP, ALT, LIPID #### [facility] [address] [address] [address] Winter Niño 08-07-2022 CNPN Telephone (OPHTLN) ROYAL BELLAMY ([id number]) 1950 M Date Time Provider Department 08/07/22 MOUNA MIRANDA During your visit today, we recorded the following information about you: Angela Kendall 08/07/2022 11:17 AM Signed Pt. Saw Dr. Miranda regarding OD on 07/17 OS eye bloodshot now. He has an appt michael miranda on 09/11.. He would just like a call from a tech or to get some peace of mind, and know if he should be concerned and make a sooner appt.... [phone] [facility] cell phone Shala Knight 08/07/2022 12:35 PM Signed Spoke with patient and he states that the left eye is red. He saw Dr. Grimm and she did not see any scratches. He has been using Ketoralac three times daily for 2 weeks and it seems to be better but not totally clear. I advised the patient to use ARTIFICIAL TEARS 2-4 times per day and to follow up with Dr. Grimm. Allergies As of Date: 08/07/2022 Noted Allergy Reaction PENICILLINS 10/26/2004 2 - Rash Comments: Not completely sure; from childhood. SULFA (SULFONAMIDE ANTIBIOTICS) 12/13/2017 2 - Rash Date Reviewed: 07/17/2022 Reviewed by: Mouna Miranda MD - Fully Assessed Reason for Visit: Patient Question [1477] Prescriptions as of 08/07/2022 - COMBIGAN 0.2-0.5 % ophthalmic solution Use 1 Drop in both eyes twice daily. - prednisoLONE acetate (PRED FORTE, ECONOPRED PLUS) 1 % ophthalmic suspension USE DIRECTED BY PHYSICIAN, IN OPERATIVE EYE, BEGINNING ONE DAY AFTER SURGERY - ramipril (ALTACE) 5 mg capsule Take 5 mg by mouth once daily. - atorvastatin (LIPITOR) 80 mg tablet Take 80 mg by mouth once daily. - FA/mv,Ca,iron,min/ly copene/lut (MULTIVITAL ORAL) Take 1 tablet by mouth once daily. - ASPIRIN 81 MG TABLET Take one (1) tablet daily . 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 Winter Corona Basophils/100 WBC (Bld) 0.5 % Normal 0.2-2.0 [facility] Comment on above: Performed By: #### C BC #### [facility] [address] [place] [address] Dr. Winter Corona EO # 0.2 103/ul Normal 0.0-0.7 [facility] Comment on above: Performed By: #### C BC #### [facility] [address] [place] [address] Dr. Winter Corona Eosinophils/100 WBC (Bld) 3.2 % Normal 0.9-7.0 [facility] Comment on above: Performed By: #### C BC #### [facility] [address] [place] [address] Dr. Winter Corona Erythrocyte distribution width (RBC) [Ratio] 12.4 % Normal 11.0-15.0 [facility] Comment on above: Performed By: #### C BC #### [facility] [address] [place] [address] Dr. Winter Corona Hematocrit (Bld) [Volume fraction] 39.5 % Critically low 42.0-54.0 [facility] Comment on above: Performed By: #### C BC #### [facility] [address] [place] [address] Dr. iWnter Corona Hemoglobin (Bld) [Mass/Vol] 13.5 g/dL Critically low 14.0-18.0 [facility] Comment on above: Performed By: #### C BC #### [facility] [address] [place] [address] Dr. Winter Corona IG # 0.02 10e3/ul Normal 0.00-0.03 [facility] Comment on above: Performed By: #### C BC #### [facility] [address] [place] [address] Dr. Winter Corona IG % 0.3 % Normal 0.0-0.5 [facility] Comment on above: Performed By: #### C BC #### [facility] [address] [place] [address] Dr. Winter Corona LYMPH # 2.5 103/ul Normal 1.2-3.8 [facility] Comment on above: Performed By: #### C BC #### [facility] [address] [place] [address] Dr. Winter Corona Lymphocytes/100 WBC (Bld) 38.2 % Normal 20.5-60.0 [facility] Comment on above: Performed By: #### C BC #### [facility] [address] [place] [address] Dr. Winter Corona MANUAL DIFF REQ NO Normal [facility] Comment on above: Performed By: #### C BC #### [facility] [address] [place] [address] Dr. Winter Corona MCH (RBC) [Entitic mass] 31.6 pg Normal 25.9-34.0 [facility] Comment on above: Performed By: #### C BC #### [facility] [address] [place] [address] Dr. Winter Corona MCHC (RBC) [Mass/Vol] 34.2 g/dL Normal 29.9-35.2 [facility] Comment on above: Performed By: #### C BC #### [facility] [address] [place] [address] Dr. Winter Corona MCV (RBC) [Entitic vol] 92.5 fL Normal 80.0-94.0 [facility] Comment on above: Performed By: #### C BC #### [facility] [address] [place] [address] Dr. Winter Corona MONO # 0.7 103/ul Normal 0.3-0.8 [facility] Comment on above: Performed By: #### C BC #### [facility] [address] [place] [address] Dr. Winter Corona Monocytes/100 WBC (Bld) 10.8 % Normal 1.7-12.0 [facility] Comment on above: Performed By: #### C BC #### [facility] [address] [place] [address] Dr. Winter Corona NEUT # 3.1 103/ul Normal 1.4-6.5 [facility] Comment on above: Performed By: #### C BC #### [facility] [address] [place] [address] Dr. Winter Corona Neutrophils/100 WBC (Bld) 47.0 % Normal 43.0-75.0 [facility] Comment on above: Performed By: #### C BC #### [facility] [address] [place] [address] Dr. Winter Corona Platelet mean volume (Bld) [Entitic vol] 10.4 fL Normal 9.5-13.5 [facility] Comment on above: Performed By: #### C BC #### [facility] [address], [place] [address] Dr. Winter Corona PLT 251 103/ul Normal 150-450 [facility] Comment on above: Performed By: #### C BC #### [facility] [address] [place], [place] [address] Dr. Winter Corona RBC 4.27 106/ul Critically low 4.70-6.10 [facility] Comment on above: Performed By: #### C BC #### [facility] [address], [place] [address] Dr. Winter Corona WBC 6.6 103/ul Normal 4.0-11.0 [facility] Comment on above: Performed By: #### C BC #### [facility] [address], [place] [address] Dr. Winter Corona [facility] 04-09-2022 NGHIAN Telephone (OPHTLN) ROYAL BELLAMY ([id number]) 1950 M Date Time Provider Department 04/09/22 MOUNA MIRANDA During your visit today, we recorded the following information about you: Sherry Samaniego, PUJA 04/09/2022 2:13 PM Signed Patient has been reminded to check with pharmacy 24 to 48hr after request. Pt is identified by name and birthdate: Yes Patient phones requesting refills as follows: Pending Prescriptions Disp Refills COMBIGAN 0.2 %-0.5 % EYE DROPS VIKTORIYA: Yes Please review and advise. Vikram Ott, OD 04/09/2022 5:06 PM Signed The last plan I had for him was to stay on the Combigan until he finished the Pred taper. Then to d/c the Combigan and continue Lumigan Both eyes. If he's back on Pred he may need to be back on it. Both eyes at 24mmHg, he may need to be back on it. It is a bit unknown what changes Dr Grimm may have made to his drop regimen since August. I'll restart him with 24 Both eyes and have him follow with [facility] in [place] after his CME is under control. Sheba Gonzalez Pss 04/16/2022 11:06 AM Signed Patient is calling to get clarification can someone please call him and answer some questions for him, thanks. Allergies As of Date: 04/09/2022 Noted Allergy Reaction PENICILLINS 10/26/2004 2 - Rash Comments: Not completely sure; from childhood. SULFA (SULFONAMIDE ANTIBIOTICS) 12/13/2017 2 - Rash Date Reviewed: 04/03/2022 Reviewed by: JAYDEN Mena - Fully Assessed Reason for Visit: Refill Request [94] Refill Request [94] Visit Diagnoses:S/P cataract extraction and insertion of intraocular lens, right [Z98.41, Z96.1] S/P cataract extraction and insertion of intraocular lens, left [Z98.42, Z96.1] Order(s):COMBIGAN 0.2-0.5 % ophthalmic solutionUse 1 Drop in both eyes twice daily.Disp: 1 mLRfl: 3 Prescriptions as of 04/16/2022 - COMBIGAN 0.2-0.5 % ophthalmic solution Use 1 Drop in both eyes twice daily. - keTORolac (ACULAR) 0.5 % ophthalmic solution - prednisoLONE acetate (PRED FORTE, ECONOPRED PLUS) 1 % ophthalmic suspension USE DIRECTED BY PHYSICIAN, IN OPERATIVE EYE, BEGINNING ONE DAY AFTER SURGERY - prednisoLONE acetate (PRED FORTE, ECONOPRED PLUS) 1 % ophthalmic suspension USE DIRECTED BY PHYSICIAN, IN OPERATIVE EYE, BEGINNING ONE DAY AFTER SURGERY - ramipril (ALTACE) 5 mg capsule Take 5 mg by mouth once daily. - atorvastatin (LIPITOR) 80 mg tablet Take 80 mg by mouth once daily. - FA/mv,Ca,iron,min/ly copene/lut (MULTIVITAL ORAL) Take 1 tablet by mouth once daily. - BIMATOPROST (LUMIGAN OPHTHALMIC) Use 1 Drop in eyes daily at bedtime. 1 drop both eyes at bedtime - ASPIRIN 81 MG TABLET Take one (1) tablet daily . 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 Medications Discontinued During This Encounter Prescriptions - COMBIGAN 0.2-0.5 % ophthalmic solution (Discontinued) Reported on 04/03/2022 Encounter Status:Closed by VIKRAM OTT on 04/09/22 Normal [facility] GLYCOHEMOGLOBIN A1Con 2021 ADA RECOMMENDATION SEE BELOW Normal [facility] Comment on above: Result Comment: ADA RECOMMENDED LIMIT 4.0 - 6.0 ADA THERAPEUTIC TARGET < 7.0 ACTION SUGGESTED > 7.0 Performed By: #### D ATA1C #### [facility] [address] [place] [address] Dr. Winter Corona Glucose [Mass/Vol] 117 mg/dL Normal [facility] Comment on above: Performed By: #### D ATA1C #### [facility] [address] [place] [address] [address] Winter Corona HbA1c (Bld) [Mass fraction] 5.7 % Normal 4.5-6.2 [facility] Comment on above: Performed By: #### D ATA1C #### [facility] [address] [place] [address] Dr. Winter Corona No Panel Information [facility] Vital Signs Date Time Vital Sign Value Performing Clinician Facility 04-17-2023 14:00-0400 Body height 170.18 cm Keith Lima Other [facility] Other 04-17-2023 14:00-0400 Body mass index (BMI) [Ratio] 29.35 kg/m2 Keith Ball Other [facility] Other 04-17-2023 14:00-0400 Body weight 85 kg Keith Ball Other [facility] Other 04-17-2023 14:00-0400 Diastolic blood pressure 74 mm[Hg] Keith Ball Other [facility] Other 04-17-2023 14:00-0400 Respiratory rate 12 /min Keith Ball Other [facility] Other 04-17-2023 14:00-0400 Systolic blood pressure 146 mm[Hg] Keith Ball Other [facility] Other 01-10-2023 10:30-0400 Body height 170.18 cm Keith Ball Other [facility] Other 01-10-2023 10:30-0400 Body mass index (BMI) [Ratio] 29.75 kg/m2 Keith Ball Other [facility] Other 01-10-2023 10:30-0400 Body weight 86.18 kg Keith Ball Other [facility] Other 01-10-2023 10:30-0400 Diastolic blood pressure 74 mm[Hg] Keith Ball Other [facility] Other 01-10-2023 10:30-0400 Respiratory rate 12 /min Keith Ball Other [facility] Other 01-10-2023 10:30-0400 Systolic blood pressure 163 mm[Hg] Keith Ball Other [facility] Other 01-01-2023 10:15-0400 Body height 170.18 cm Keith Ball Other [facility] Other 01-01-2023 10:15-0400 Body mass index (BMI) [Ratio] 30.16 kg/m2 Keith Ball Other [facility] Other 01-01-2023 10:15-0400 Body weight 87.36 kg Keith Ball Other [facility] Other 01-01-2023 10:15-0400 Diastolic blood pressure 84 mm[Hg] Keith Ball Other [facility] Other 01-01-2023 10:15-0400 Respiratory rate 12 /min Keith Ball Other [facility] Other 01-01-2023 10:15-0400 Systolic blood pressure 152 mm[Hg] Keith Ball Other [facility] Other Encounters Encounter Date Encounter Type Care Provider Facility Start: 11-04-2023 End: 11-04-2023 ambulatory Keith Clarence Other [facility] Other Start: 11-04-2023 Office outpatient vi sit 15 minutes Keith Ball [facility] Start: 07-15-2023 End: 07-15-2023 ambulatory Keith Ball Other [facility] Other Start: 07-15-2023 Nursing evaluation o f patient and report Keith Ball [facility] Start: 05-21-2023 End: 05-21-2023 ambulatory Keith Ball Other [facility] Other Start: 05-21-2023 Telephone encounter Keith Clarence [facility] Start: 05-20-2023 End: 05-20-2023 ambulatory Keith Lima Other [facility] Other Start: 05-20-2023 Telephone encounter Keith Lima [facility] Start: 05-10-2023 End: 05-10-2023 ambulatory Keith Lima Other [facility] Other Start: 05-10-2023 Telephone encounter Keith Lima [facility] Start: 05-07-2023 End: 05-07-2023 ambulatory Keith Lima Other [facility] Other Start: 05-07-2023 Telephone encounter Keith Lima [facility] Start: 04-17-2023 End: 04-17-2023 ambulatory Keith Lima Other [facility] Other Start: 04-17-2023 Office outpatient vi sit 15 minutes Keith Lima [facility] Start: 04-09-2023 End: 04-09-2023 ambulatory Keith Lima Other [facility] Other Start: 04-09-2023 Telephone encounter Keith Lima [facility] Start: 01-11-2023 End: 01-11-2023 ambulatory Keith Lima Other [facility] Other Start: 01-11-2023 Telephone encounter Keith Lima [facility] Start: 01-10-2023 Patient encounter procedure Keith Lima [facility] Start: 01-10-2023 End: 01-11-[address] KEITH LIMA [facility] Other Start: 01-01-2023 End: 01-01-2023 ambulatory Keith Lima Other [facility] Other Start: 01-01-2023 Office outpatient vi sit 15 minutes Keith Lima [facility] Start: 12-11-2022 End: 12-11-2022 Patient encounter procedure Mouna Miranda MD Work Phone: Ophthalmology Comment on above: CME (cystoid macular edema), right (Primary Dx); Primary open angle glaucoma (POAG) of both eyes, mild stage Start: 09-11-2022 End: 09-11-2022 ambulatory KEITH LIMA Facility:[facility] Start: 09-11-2022 End: 09-11-2022 Patient encounter procedure Mouna Miranda MD Work Phone: Ophthalmology Comment on above: CME (cystoid macular edema), right (Primary Dx) Start: 08-07-2022 Telephone encounter Mouna martin MD Work Phone: Ophthalmology Comment on above: Patient Question Start: 07-17-2022 End: 07-17-2022 ambulatory MOUNA MIRANDA Facility:[facility] Start: 07-17-2022 End: 07-17-2022 Patient encounter procedure Mouna Miranda MD Work Phone: Ophthalmology Comment on above: CME (cystoid macular edema), right (Primary Dx) Start: 05-29-2022 End: 05-29-2022 ambulatory MOUNA MIRANDA Facility:[facility] Start: 05-29-2022 End: 05-29-2022 Patient encounter procedure Mouna Miranda MD Work Phone: Ophthalmology Comment on above: CME (cystoid macular edema), right Start: 05-24-2022 Orders Only Mouna Miranda MD Work Phone: Ophthalmology Comment on above: CME (cystoid macular edema), right (Primary Dx) Start: 04-19-2022 End: 04-20-[address] KEITH LIMA Facility: Start: 04-09-2022 Telephone encounter Mouna martin MD Work Phone: Ophthalmology Comment on above: Opened In Error Refill Request Start: 04-03-2022 End: 04-03-2022 ambulatory MOUNA MIRANDA Facility:[facility] Start: 04-03-2022 End: 04-03-2022 Patient encounter procedure Mouna Miranda MD Work Phone: Ophthalmology Comment on above: CME (cystoid macular edema), right Start: 03-14-2022 End: 03-15-[address] TUCKER LISTED REQUEST Facility: Start: 01-09-2022 Adult health examination Keith Lima Other [facility] Other Start: 11-21-2021 End: 11-21-2021 ambulatory MOUNA MIRANDA Facility:[facility] Start: 10-24-2021 End: 10-24-2021 ambulatory MOUNA MIRANDA Facility:[facility] Start: 05-17-2020 End: 05-17-2020 Blood group typing Keith Lima Other [facility] Other Procedures Date Procedure Procedure Detail Performing Clinician Start: 01-10-[address] TUCKER L ISTED REQUEST Comment on above: Performed By: #### P [facility] #### [facility] [address] [place] [address] Dr. Winter Corona Start: 12-11-2022 Computerized ophthal kira imaging retina Mouna Miranda MD Work Phone: Start: 09-11-2022 Computerized ophthal kira imaging retina Mouna Miranda MD Work Phone: Start: 07-17-2022 Computerized ophthal kira imaging retina Mouna Miranda MD Work Phone: Start: 05-29-2022 Computerized ophthal kira imaging retina Mouna Miranda MD Work Phone: Start: 04-03-2022 End: 04-03-2022 Fundus photography w/interpretation & report Mouna Miranda MD Work Phone: Start: 04-03-2022 Computerized ophthal kira imaging retina Mouna Miranda MD Work Phone: Start: 12-23-2015 Screening for malign ant neoplasm of colon Keith Lima Other Depression screening Zen [facility] Other Screening for malign ant neoplasm of prostate Keith Lima Other Plan of Treatment Date Care Activity Detail Author Start: 05-19-2023 End: 11-15-2023 OCT MACULA CIRRUS OU (BOTH EYES) OCT MACULA CIRRUS OU (BOTH EYES) OPHT Imaging Routine CME (cystoid macular edema), right Expected: 05/19/2023, Expires: 11/15/2023 [facility] Work Phone: Comment on above: Expected: 05/19/2023 , Expires: 11/15/2023 Start: 09-23-2022 ADVANCE DIRECTIVE DISCUSSION ADVANCE DIRECTIVE DISCUSSION [facility] Start: 09-23-2022 DEPRESSION ASSESSMENT DEPRESSION ASS ESSMENT [facility] Start: 05-24-2022 Influenza vaccination INFLUENZA (#1) [facility] Start: 09-23-2021 ADVANCE DIRECTIVE DISCUSSION ADVANCE DIRECTIVE DISCUSSION [facility] Start: 09-23-2021 [facility]PRESSION [facility] Start: 2015 PNEUMOCOCCAL: 65+ (1 - PCV) PNEUMOCOCCAL: 65+ (1 - PCV) [facility] Start: 2000 SHINGRIX VACCINE (1 of 2) SHINGRIX VACCINE (1 of 2) [facility] Start: 1995 COLOGUARD (FIT-DNA) COLOGUARD (FIT-D NA) [facility] Start: 1995 Colonoscopy COLONOSCOPY [facility] Start: 1995 COLORECTAL CANCER SCREENING COLORECTAL CANCER SCREENING [facility] Start: [address] COLONOGRAPHY [facility] Start: 1995 DIABETES SCREEN DIABETES SCREEN [facility] Start: 1995 FECAL OCCULT BLOOD FECAL OCCULT BLOO D [facility] Start: 1995 SIGMOIDOSCOPY SIGMOIDOSCOPY [facility] Start: 1985 LIPID SCREEN LIPID SCREEN [facility] Start: 1969 Urine microalbumin profile DTAP,TDAP,TD (1 - Tdap) [facility] Start: 1968 ANNUAL PCP TEAM 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 TEACHER TEODORO DISEASE VISIT ANNUAL PCP TEAM CHRONIC DISEASE VISIT [facility] Start: 1968 BP CONTROLLED (<130/80) BP CONTROLLE D (<130/80) [facility] Start: 1968 Hepatitis B surface antibody level LDL CHOLESTEROL [facility] Start: 1968 HEPATITIS C SCREENING HEPATITIS C SC REENING [facility] Start: 1962 Adult depression screening assessment DEPRESSION SCREENING [facility] Start: 1950 ABDOMINAL AORTIC ANEURYSM SCREENING ABDOMINAL AORTIC ANEURYSM SCREENING [facility] Immunizations Immunization Date Immunization Notes Care Provider Abdulaziz amos 07-15-2023 influenza, high dose seasonal, preservative-free Keith Lima Other [facility] Other 07-04-2022 influenza virus vaccine, split virus (incl. purified surface antigen) Keith Lima Other [facility] Other 07-04-2022 influenza, high dose seasonal, preservative-free Keith Lima Other [facility] Other 06-14-2022 COVID-19 Pfizer (bivalent) Keith Lima Other [facility] Other 12-28-2021 COVID-19 Pfizer Keith romo Other [facility] Other 12-28-2021 COVID-19 Vaccine Pfi zer - Documentation Purposes Only Keith Lima Other [facility] Other 06-27-2021 influenza virus vaccine, split virus (incl. purified surface antigen) Keith Lima Other [facility] Other 06-27-2021 influenza, injectabl e, quadrivalent, contains preservative Mouna Miranda MD Work Phone: [facility] 06-19-2021 COVID-19 vaccine, ag e 12+ yr (PFIZER-BIONTECH - PURPLE TOP) Mouna Miranda MD Work Phone: [facility] 11-20-2020 COVID-19 vaccine, ag e 12+ yr (PFIZER-BIONTECH - PURPLE TOP) Mouna Miranda MD Work Phone: [facility] 10-31-2020 COVID-19 vaccine, ag e 12+ yr (PFIZER-BIONTECH - PURPLE TOP) Mouna Miranda MD Work Phone: [facility] 10-30-2020 COVID-19 Vaccine Pfi zer - Documentation Purposes Only Keith Lima Other [facility] Other 08-15-2020 zoster vaccine recombinant Keith Liam Other [facility] Other 08-15-2020 zoster vaccine, live Benjami n Ball Other [facility] Other 06-24-2020 influenza virus vaccine, split virus (incl. purified surface antigen) Keith Lima Other [facility] Other 06-10-2020 zoster vaccine recombinant Keith Lima Other [facility] Other 06-10-2020 zoster vaccine, live Benjami n Ball Other [facility] Other 07-10-2019 influenza virus vaccine, split virus (incl. purified surface antigen) Keith Lima Other [facility] Other 07-08-2018 influenza virus vaccine, split virus (incl. purified surface antigen) Keith Lima Other [facility] Other 10-23-2017 diphtheria, tetanus toxoids and acellular pertussis vaccine, unspecified formulation Keith Lima Other [facility] Other 06-06-2017 influenza virus vaccine, split virus (incl. purified surface antigen) Keith Clarence Other [facility] Other 12-27-2016 pneumococcal conjuga te vaccine, 13 valent Keith Lima Other [facility] Other 06-20-2016 influenza virus vaccine, split virus (incl. purified surface antigen) Keith Clarence Other [facility] Other 12-23-2015 pneumococcal polysaccharide vaccine, 23 valent Keith Lima Other [facility] Other 06-27-2015 tetanus and diphther ia toxoids, adsorbed, preservative free, for adult use (5 Lf of tetanus toxoid and 2 Lf of diphtheria toxoid) Keith Lima Other [facility] Other 06-28-2014 tetanus and diphther ia toxoids, adsorbed, preservative free, for adult use (5 Lf of tetanus toxoid and 2 Lf of diphtheria toxoid) Keith Lima Other [facility] Other Payers Date Payer Category Payer Unknown MMO MMO MEDICARE SUPPLEMENT [id number] 2019-Present [phone] [address] [place] [address] Indemnity [id number] 2019 Unknown [id number] 2015 Medicare MEDICARE MEDICAR E A AND B [id number] 2015-Present [phone] [address] [address] [place] [address] Medicare [id number] 2015 Medicare MEDICARE MEDICAR E A AND B [id number] 2015-Present [phone] [place] [address] Medicare [id number] 1959 Medicare [id number] 1959 Medicare [id number] 1959 Self-pay 1950 Unknown [id number] 1950 Unknown [id number] Unknown [id number] Social History Date Type Detail Facility Start: 07-05-2021 End: 09-11-2022 Tobacco smoking status NHIS Ex-smoker [facility] End: 09-23-1984 History of tobacco use Current smoker [facility] End: 09-23-1984 History of tobacco use Cigarette Smoker [facility] Start: 07-05-2021 End: 09-11-2022 Cigarettes smoked current (pack per day) - Reported 0.5 [facility] Start: 07-05-2021 End: 09-11-2022 Tobacco use and exposure Smokeless tobacco non-user [facility] Start: 04-03-2022 End: 09-11-2022 Alcohol intake Current drinker of alcohol (finding) [facility] Start: 07-05-2021 History SDOH Alcohol Comment very rare [facility] Start: 1950 Sex Assigned At Not on file C [facility] [place] Sex Assigned At Sex Assigned At [facility] Other Medical Equipment Procedure Code Equipment Code Equipment Origin al Text Equipment Identifier Dates Lens Iol Acrysof Trc3 21.5 - [id number] Start: 07-12-2021 Comment on above: Description: -0.27 Lens Iol Acrysof Trc3 21.5 - [id number] Start: 07-26-2021 Comment on above: Description: -0.32 Istent Inject - [id number] Start: 07-12-2021 Istent Inject - [id number] Start: 07-26-2021 Clinical Notes 10-24-2001 to 11-04-2023 Note Date & Type Note Facility 11-04-2023 Evaluation note Encounter Date Diagnosis Assessment Notes Oct, COVID-19 (ICD-10 - U07.1) Supportive treatment Instructed to use Robitussin or Mucinex for cough, saline or Flonase NS for congestion, Tylenol for pain and fever. Self isolate at home. - Cannot work - avoid contact with others - avoid pets - wipe counters, door knobs if touched - if can't avoid leaving home, must wear mask to protect others - need to stay isolated for 10 days from onset of symptoms - to discontinue isolation must be 5 days AND must be without fever for 24 hours AND symptoms must be improving. Always wear a mask in public places for complete 10 days Oct, Acute bacterial conjunctivitis of both eyes (ICD-10 - H10.33) Use artificial tears to hydrate eyes. Warm washcloth to remove debris Would initiate antibiotic drops to prevent secondary bacterial infection [facility] 08-28-2023 Evaluation note* Encounter Date Diagnosis Assessment Notes Treatment Notes Treatment Clinical Notes Apr, Chronic venous insufficiency of lower extremity (ICD-10 - I87.2) [facility] 08-18-2023 Evaluation note* Encounter Date Diagnosis Assessment Notes Treatment Notes Treatment Clinical Notes Apr, Other specified hypothyroidism (ICD-10 - E03.8) Apr, Autoimmune thyroiditis (ICD-10 - E06.3) [facility] 07-26-2023 Evaluation note* Encounter Date Diagnosis Assessment Notes Treatment Notes Treatment Clinical Notes Mar, ASHD (arteriosclerotic heart disease) (ICD-10 - I25.10) This patient is stable without activity related CP, dyspnea or lightheadedness. They are instructed to continue exercise and AHA diet plan. Mar, Chronic venous insufficiency (ICD-10 - I87.2) Avoid salt and elevate lower extremities, support stockings, inspect legs and feet daily for blisters and ulcerations. Reviewed differential for lower extremity swelling - CHF, cirrhosis, CKD - medications - high salt diet - CVI He most likely has CVI He has no risk factors for DVT He does spend time sitting during the daytime Swelling resolves during sleep Mar, Essential hypertension (ICD-10 - I10) This patient is instructed to consume a healthy, low-fat, low-salt diet. They are also encouraged to continue exercise to achieve/maintain a normal BMI. Needs to monitor closely at home Stop in next week w/ readings and cuff [facility] Other 07-18-2023 Evaluation note* Encounter Date Diagnosis Assessment Notes Treatment Notes Treatment Clinical Notes Mar, Anemia (ICD-10 - D64.9) [facility] 04-20-2023 Evaluation note* Encounter Date Diagnosis Assessment Notes Treatment Notes Treatment Clinical Notes Dec, ASHD (arteriosclerotic heart disease) (ICD-10 - I25.10) This patient is stable without activity related CP, dyspnea or lightheadedness. They are instructed to continue exercise and AHA diet plan. Dec, Essential hypertension (ICD-10 - I10) This patient is instructed to consume a healthy, low-fat, low-salt diet. They are also encouraged to continue exercise to achieve/maintain a normal BMI. Dec, Elevated cholesterol (ICD-10 - E78.00) Diet and exercise with continued statin therapy. Dec, Benign prostatic hyperplasia with lower urinary tract symptoms (ICD-10 - N40.1) Symptoms tolerable Yearly KEVIN and PSA Dec, Overweight (ICD-10 - E66.3) This patient has been instructed on a low-fat, high-fiber diet. They are instructed to reduce calories, portion sizes and snacks. It is recommended that they exercise for 30 minutes, 3-5 times weekly. Dec, Cigarette nicotine dependence in remission (ICD-10 - F17.211) Dec, Screening PSA (prostate specific antigen) (ICD-10 - Z12.5) Dec, Medicare annual wellness visit, subsequent (ICD-10 - Z00.00) Personalized health advice was given to the beneficiary including a written plan for screenings discussed and provided. Advanced care planning reviewed and/or information given as requested. Additional counseling was provided here today in regards to, [ ]. The above visit was performed by [ ], under direct supervision of [ ]. Document reviewed and amended by provider signed below. Healthy diet and exercise. Reviewed age-appropriate preventive testing recommended. Dec, High risk medication use (ICD-10 - Z79.899) [facility] 04-11-2023 Evaluation note* Encounter Date Diagnosis Assessment Notes Treatment Notes Treatment Clinical Notes Dec, Primary hypertension (ICD-10 - I10) This patient is instructed to consume a healthy, low-fat, low-salt diet. They are also encouraged to continue exercise to achieve/maintain a normal BMI. Dec, Eczema, dyshidrotic (ICD-10 - L30.1) Avoid washing w/ harsh soaps Moisturizers daily Topical steroids [facility] 03-21-2023 History of Present illness Narrative* Mouna Miranda MD - 12/11/2022 9:30 AM EDT Referred for macular edema right eye - currently followed by Dr Grimm - history of Cataract extraction with iStent placement with Dr [facility] Hx: HTN; HLD; CAD Current Drops: - timolol twice a day both eyes ASSESSMENT/PLAN Last dilated fundus exam: 12/11/2022 H35.351 Macular edema, right eye (primary encounter diagnosis) Comment: - no heme on exam - previously on lumigan but stopped everything after Cataract extraction - finished prednisolone acetate 1% taper in August 2021 following Cataract extraction - likely rebound inflammation - Anterior chamber quiet today - no RLF's noted on gonio or REGIONAL MAINTENANCE MANAGER on prior exams & gonio has shown the angle to be open with multiple areas of PAS scattered; iStents noted - Intraocular pressure stable today - stopped all drops at the end of January 2022 with recurrence of macular edema right eye - UWFA (04/03/22) showed late macular and peripheral leakage without late disc hyperfluorescence - OCT today with resolution of fluid off all drops - follow up PRN with retina H40.1131 Primary open angle glaucoma (POAG) of both eyes, mild stage Comment: - s/p SLT Both eyes with Dr Eileen Richard in 2018 - IOPs were previously controlled on Lumigan monotherapy BUT is now on timolol both eyes twice a day - 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 I have confirmed and edited as necessary the relevant ophthalmic history, ROS, and the neuro exam findings as obtained by others. I have seen and examined Royal Bellamy. I have discussed the case and the management of this patient's care with theResident/Fellow, if applicable. I also have reviewed and agree with the assessment and plan as stated above and agree with all of its relevant components. documented in this encounterM[facility]12[facility] NoteHNO ID: [id number] Author: Mouna Miranda MD Service: ? Author Type: Physician Type: Progress Notes Filed: 09/11/2022 10:06 AM Note Text: Referred for macular edema right eye - currently followed by Dr Grimm - recent Cataract extraction with iStent placement with Dr [facility]aud [facility] Hx: HTN; HLD; CAD Current Drops: - prednisolone acetate 1% two times a day right eye - combigan both eyes 2 times a day both eyes ASSESSMENT/PLAN Last dilated fundus exam: 07/17/2022 H35.351 Macular edema, right eye (primary encounter diagnosis) Comment: - no heme on exam - previously on lumigan but stopped everything after Cataract extraction - finished prednisolone acetate 1% taper in August 2021 following Cataract extraction - likely rebound inflammation - Anterior chamber quiet today - no RLF's noted on gonio or REGIONAL MAINTENANCE MANAGER on prior exams AND gonio has shown the angle to be open with multiple areas of PAS scattered; iStents noted - Intraocular pressure stable today - stopped all drops at the end of January 2022 with recurrence of macular edema right eye - UWFA (04/03/22) showed late macular and peripheral leakage without late disc hyperfluorescence - OCT today shows continued resolution of intraretinal fluid with prednisolone acetate 1% two times a day and proceed with very slow taper - DECREASE prednisolone acetate 1% to once daily - STOP combigan both eyes as below - follow up 12 weeks with Mouna Miranda MD H40.1131 Primary open angle glaucoma (POAG) of both eyes, mild stage Comment: - s/p SLT Both eyes with Dr Eileen Richard in 2018 - IOPs were previously controlled on Lumigan monotherapy BUT is now on Combigan both eyes twice a day - now with follicular reaction both eyes (left eye > right eye but right eye is on prednisolone acetate 1%) - STOP Combigan for 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 I have confirmed and edited as necessary the relevant ophthalmic history, ROS, and the neuro exam findings as obtained by others. I have seen and examined Royal Bellamy. I have discussed the case and the management of this patient's care with the Resident/Fellow, if applicable. I also have reviewed and agree with the assessment and plan as stated above and agree with all of its relevant components.[facility]12-20-[facility] History of Present illness Narrative* Mouna Miranda MD - 09/11/2022 9:40 AM EST Referred for macular edema right eye - currently followed by Dr Grimm - recent Cataract extraction with iStent placement with Dr [facility] Hx: HTN; HLD; CAD Current Drops: - prednisolone acetate 1% two times a day right eye - combigan both eyes 2 times a day both eyes ASSESSMENT/PLAN Last dilated fundus exam: 07/17/2022 H35.351 Macular edema, right eye (primary encounter diagnosis) Comment: - no heme on exam - previously on lumigan but stopped everything after Cataract extraction - finished prednisolone acetate 1% taper in August 2021 following Cataract extraction - likely rebound inflammation - Anterior chamber quiet today - no RLF's noted on gonio or REGIONAL MAINTENANCE MANAGER on prior exams & gonio has shown the angle to be open with multiple areas of PAS scattered; iStents noted - Intraocular pressure stable today - stopped all drops at the end of January 2022 with recurrence of macular edema right eye - UWFA (04/03/22) showed late macular and peripheral leakage without late disc hyperfluorescence - OCT today shows continued resolution of intraretinal fluid with prednisolone acetate 1% two timesa day and proceed with very slow taper - DECREASE prednisolone acetate 1% to once daily - STOP combigan both eyes as below - follow up 12 weeks with Mouna Miranda MD H40.6750 Primary open angle glaucoma (POAG) of both eyes, mild stage Comment: - s/p SLT Both eyes with Dr Eileen Richard in 2018 - IOPs were previously controlled on Lumigan monotherapy BUT is now on Combigan both eyes twice a day - now with follicular reaction both eyes (left eye > right eye but right eye is on prednisolone acetate 1%) - STOP Combigan for 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 I have confirmed and edited as necessary the relevant ophthalmic history, ROS, and the neuro exam findings as obtained by others. I have seen and examined Royal Bellamy. I have discussed the case and the management of this patient's care with theResident/Fellow, if applicable. I also have reviewed and agree with the assessment and plan as stated above and agree with all of its relevant components. documented in this encounterM[facility]11-[facility] Miscellaneous Notes* Telephone Encounter - [facility] - 08/07/2022 12:30 PM EST Spoke with patient and he states that the left eye is red. He saw Dr. Grimm and she did not see any scratches. He has been using Ketoralac three times daily for 2 weeks and it seems to be better but not totally clear. I advised the patient to use ARTIFICIAL TEARS 2-4 times per day and to follow up with Dr. Grimm. * Telephone Encounter - Angela Argueta - 08/07/2022 11:03 AM EST Pt. Saw Dr. Miranda regarding OD on 07/17 OS eye bloodshot now. He has an appt michael miranda on 09/11.. He would just like a call from a tech or to get some peace of mind, and know if he should be concerned and make a sooner appt.... [phone] [place] cell phone documented in this encounterMccull[facility]10-[facility]22 NoteHNO ID: [id number] Author: Mouna Miranda MD Service: ? Author Type: Physician Type: Progress Notes Filed: 07/17/2022 11:36 AM Note Text: Referred for macular edema right eye - currently followed by Dr Grimm - recent Cataract extraction with iStent placement with Dr [facility] Hx: HTN; HLD; CAD Current Drops: - prednisolone acetate 1% three times a day right eye - combigan both eyes 2 times a day ASSESSMENT/PLAN Last dilated fundus exam: 07/17/2022 H35.351 Macular edema, right eye (primary encounter diagnosis) Comment: - no heme on exam - previously on lumigan but stopped everything after Cataract extraction - finished prednisolone acetate 1% taper in August 2021 following Cataract extraction - likely rebound inflammation - Anterior chamber quiet today - no RLF's noted on gonio or REGIONAL MAINTENANCE MANAGER on prior exams AND gonio has shown the angle to be open with multiple areas of PAS scattered; iStents noted - Intraocular pressure stable today - stopped all drops at the end of January 2022 - recurrence of macular edema right eye - UWFA (04/03/22) shows late macular and peripheral leakage without late disc hyperfluorescence - OCT today shows improved intraretinal fluid with prednisolone acetate 1% three times a day and proceed with very slow taper - DECREASE prednisolone acetate 1% to 2 times daily - continue with combigan twice a day right eye - follow up 6-8 weeks with Mouna Miranda MD and will continue with slow taper off of prednisolone acetate 1% H40.1131 Primary open angle glaucoma (POAG) of both eyes, mild stage Comment: - s/p SLT Both eyes with Dr Eileen Richard in 2018 - IOPs were previously controlled on Lumigan monotherapy BUT is now on Combigan both eyes twice a day - continue present management with Dr Grimm Z96.1 Pseudophakia of both eyes Comment: s/p Cataract extraction and iStent placement both eyes with Dr Perasud - right eye: 07/26/2021 - left eye: 07/12/2021 Any documentation recorded by the scribe accurately reflects the service I personally performed and the decisions made by myself, Mouan Miranda MD. I have confirmed and edited as necessary the relevant ophthalmic history, ROS, and the neuro exam findings as obtained by others. I have seen and examined Royal Bellamy. I have discussed the case and the management of this patient's care with the Resident/Fellow, if applicable. I also have reviewed and agree with the assessment and plan as stated above and agree with all of its relevant components.[facility]10-[facility] History of Present illness Narrative* Mouna Miranda MD - 07/17/2022 10:37 AM EDT Referred for macular edema right eye - currently followed by Dr Grimm - recent Cataract extraction with iStent placement with Dr [facility] Hx: HTN; HLD; CAD Current Drops: - prednisolone acetate 1% three times a day right eye - combigan both eyes 2 times a day ASSESSMENT/PLAN Last dilated fundus exam: 07/17/2022 H35.351 Macular edema, right eye (primary encounter diagnosis) Comment: - no heme on exam - previously on lumigan but stopped everything after Cataract extraction - finished prednisolone acetate 1% taper in August 2021 following Cataract extraction - likely rebound inflammation - Anterior chamber quiet today - no RLF's noted on gonio or REGIONAL MAINTENANCE MANAGER on prior exams & gonio has shown the angle to be open with multiple areas of PAS scattered; iStents noted - Intraocular pressure stable today - stopped all drops at the end of January 2022 - recurrence of macular edema right eye - UWFA (04/03/22) shows late macular and peripheral leakage without late disc hyperfluorescence - OCT today shows improved intraretinal fluid with prednisolone acetate 1% three times a day and proceed with very slow taper - DECREASE prednisolone acetate 1% to 2 times daily - continue with combigan twice a day right eye - follow up 6-8 weeks with Mouna Miranda MD and will continue with slow taper off of prednisolone acetate 1% H40.1131 Primary open angle glaucoma (POAG) of both eyes, mild stage Comment: - s/p SLT Both eyes with Dr Eileen Richard in 2018 - IOPs were previously controlled on Lumigan monotherapy BUT is now on Combigan both eyes twice a day - continue present management with Dr Grimm Z96.1 Pseudophakia of both eyes Comment: s/p Cataract extraction and iStent placement both eyes with Dr Persaud - right eye: 07/26/2021 - left eye: 07/12/2021 Any documentation recorded by the scribe accurately reflects the service I personally performed andthe decisions made by myself, Mouna Miranda MD. I have confirmed and edited as necessary the relevant ophthalmic history, ROS, and the neuro exam findings as obtained by others. I have seen and examined Royal Bellamy. I have discussed the case and the management of this patient's care with theResident/Fellow, if applicable. I also have reviewed and agree with the assessment and plan as stated above and agree with all of its relevant components. documented in this encounterMccull[facility]09-[facility]22 NoteHNO ID: [id number] Author: Mouna Miranda MD Service: ? Author Type: Physician Type: Progress Notes Filed: 05/29/2022 10:55 AM Note Text: Referred for macular edema right eye - currently followed by Dr Grimm - recent Cataract extraction with iStent placement with Dr [facility] Hx: HTN; HLD; CAD Current Drops: - prednisolone acetate 1% four times a day right eye - combigan both eyes 2 times a day ASSESSMENT/PLAN Last dilated fundus exam: 05/29/2022 H35.351 Macular edema, right eye (primary encounter diagnosis) Comment: - no heme on exam - previously on lumigan but stopped everything after Cataract extraction - finished prednisolone acetate 1% taper in August 2021 following Cataract extraction - likely rebound inflammation - Anterior chamber quiet today - no RLF's noted on gonio or REGIONAL MAINTENANCE MANAGER on prior exams AND gonio has shown the angle to be open with multiple areas of PAS scattered; iStents noted - Intraocular pressure stable - stopped all drops at the end of January 2022 - recurrence of macular edema right eye - UWFA (04/03/22) shows late macular and peripheral leakage without late disc hyperfluorescence - OCT today shows improved intraretinal fluid with prednisolone acetate 1% four times a day and proceed with very slow taper - DECREASE prednisolone acetate 1% to 3 times daily - continue with combigan twice a day right eye - follow up 6-8 weeks with Mouna Miranda MD and will continue with slow taper off of prednisolone acetate 1% H40.1131 Primary open angle glaucoma (POAG) of both eyes, mild stage Comment: - s/p SLT Both eyes with Dr Eileen Richard in 2018 - IOPs were previously controlled on Lumigan monotherapy BUT is now on Combigan both eyes twice a day - continue present management with Dr Grimm Z96.1 Pseudophakia of both eyes Comment: s/p Cataract extraction and iStent placement both eyes with Dr Persaud - right eye: 07/26/2021 - left eye: 07/12/2021 Any documentation recorded by the scribe accurately reflects the service I personally performed and the decisions made by myself, Mouna Miranda MD. I have confirmed and edited as necessary the relevant ophthalmic history, ROS, and the neuro exam findings as obtained by others. I have seen and examined Royal Bellamy. I have discussed the case and the management of this patient's care with the Resident/Fellow, if applicable. I also have reviewed and agree with the assessment and plan as stated above and agree with all of its relevant components.[facility]09-06-2022 History of Present illness Narrative* Mouna Miranda MD - 05/29/2022 10:18 AM EDT Referred for macular edema right eye - currently followed by Dr Grimm - recent Cataract extraction with iStent placement with Dr [facility] Hx: HTN; HLD; CAD Current Drops: - prednisolone acetate 1% four times a day right eye - combigan both eyes 2 times a day ASSESSMENT/PLAN Last dilated fundus exam: 05/29/2022 H35.351 Macular edema, right eye (primary encounter diagnosis) Comment: - no heme on exam - previously on lumigan but stopped everything after Cataract extraction - finished prednisolone acetate 1% taper in August 2021 following Cataract extraction - likely rebound inflammation - Anterior chamber quiet today - no RLF's noted on gonio or REGIONAL MAINTENANCE MANAGER on prior exams & gonio has shown the angle to be open with multiple areas of PAS scattered; iStents noted - Intraocular pressure stable - stopped all drops at the end of January 2022 - recurrence of macular edema right eye - UWFA (04/03/22) shows late macular and peripheral leakage without late disc hyperfluorescence - OCT today shows improved intraretinal fluid with prednisolone acetate 1% four times a day and proceed with very slow taper - DECREASE prednisolone acetate 1% to 3 times daily - continue with combigan twice a day right eye - follow up 6-8 weeks with Mouna Miranda MD and will continue with slow taper off of prednisolone acetate 1% H40.1131 Primary open angle glaucoma (POAG) of both eyes, mild stage Comment: - s/p SLT Both eyes with Dr Eileen Richard in 2018 - IOPs were previously controlled on Lumigan monotherapy BUT is now on Combigan both eyes twice a day - continue present management with Dr Grimm Z96.1 Pseudophakia of both eyes Comment: s/p Cataract extraction and iStent placement both eyes with Dr Persaud - right eye: 07/26/2021 - left eye: 07/12/2021 Any documentation recorded by the scribe accurately reflects the service I personally performed andthe decisions made by myself, Mouna Miranda MD. I have confirmed and edited as necessary the relevant ophthalmic history, ROS, and the neuro exam findings as obtained by others. I have seen and examined Royal Bellamy. I have discussed the case and the management of this patient's care with theResident/Fellow, if applicable. I also have reviewed and agree with the assessment and plan as stated above and agree with all of its relevant components. documented in this encounterM[facility]ull[facility]07-18-[facility] Miscellaneous Notes* Telephone Encounter - Vkiram Hernandez Tru, OD - 04/09/2022 5:01 PM EDT The last plan I had for him was to stay on the Combigan until he finished the Pred taper. Then to d/c the Combigan and continue Lumigan Both eyes. If he's back on Pred he may need to be back on it. Both eyes at 24mmHg, he may need to be back on it. It is a bit unknown what changes Dr Grimm may have made to his drop regimen since August. I'll restart him with 24 Both eyes and have him follow with [facility] in [place] after his CME is under control. * Telephone Encounter - PUJA Fu - 04/09/2022 2:09 PM EDT Patient has been reminded to check with pharmacy 24 to 48hr after request. Pt is identified by name and birthdate: Yes Patient phones requesting refills as follows: Pending Prescriptions Disp Refills COMBIGAN 0.2 %-0.5 % EYE DROPS VIKTORIYA: Yes Please review and advise. documented in this encounterM[facility] NoteHNO ID: [id number] Author: Mouna Miranda MD Service: ? Author Type: Physician Type: Progress Notes Filed: 04/03/2022 1:08 PM Note Text: Referred for macular edema right eye - currently followed by Dr Grimm - per patient, she was seen by Dr Grimm about 2 weeks ago AND dx with macular edema and started prednisolone acetate 1% and ketorolac - recent Cataract extraction with iStent placement with Dr Persaud [facility] Hx: HTN; HLD; CAD Current Drops: - prednisolone acetate 1% four times a day right eye - ketorolac four times a day right eye - combigan both eyes three times a day ASSESSMENT/PLAN Last dilated fundus exam: 04/03/2022 H35.351 Macular edema, right eye (primary encounter diagnosis) Comment: - no heme on exam - previously on lumigan but stopped everything after Cataract extraction - finished prednisolone acetate 1% taper in August 2021 following Cataract extraction - likely rebound inflammation - Anterior chamber quiet today - no RLF's noted on gonio or [employer]ION[employer] MAINTENANCE MANAGER today - gonio shows the angle to be open with multiple areas of PAS scattered; iStents noted - Intraocular pressure stable - stopped all drops at the end of January 2022 - now with recurrence of macular edema right eye - UWFA today shows late macular and peripheral leakage without late disc hyperfluorescence - recommend to restart prednisolone acetate 1% four times a day and proceed with very slow taper - restart combigan twice a day right eye - follow up 8 weeks with Mouna Miranda MD H40.1131 Primary open angle glaucoma (POAG) of both eyes, mild stage Comment: - s/p SLT Both eyes with Dr Eileen Richard in 2018 - IOPs were previously controlled on Lumigan monotherapy BUT is now on Combigan both eyes twice a day - continue present management with Dr Grimm Z96.1 Pseudophakia of both eyes Comment: s/p Cataract extraction and iStent placement both eyes with Dr Persaud - right eye: 07/26/2021 - left eye: 07/12/2021 Any documentation recorded by the scribe accurately reflects the service I personally performed and the decisions made by myself, Mouna Miranda MD. I have confirmed and edited as necessary the relevant ophthalmic history, ROS, and the neuro exam findings as obtained by others. I have seen and examined Royal Bellamy. I have discussed the case and the management of this patient's care with the Resident/Fellow, if applicable. I also have reviewed and agree with the assessment and plan as stated above and agree with all of its relevant components.[facility]07-12-[facility] History of Present illness Narrative* Mouna Miranda MD - 04/03/2022 9:16 AM EDT Referred for macular edema right eye - currently followed by Dr Grimm - per patient, she was seen by Dr Grimm about 2 weeks ago & dx with macular edema and startedprednisolone acetate 1% and ketorolac - recent Cataract extraction with iStent placement with Dr Persaud [facility] Hx: HTN; HLD; CAD Current Drops: - prednisolone acetate 1% four times a day right eye - ketorolac four times a day right eye - combigan both eyes three times a day ASSESSMENT/PLAN Last dilated fundus exam: 04/03/2022 H35.351 Macular edema, right eye (primary encounter diagnosis) Comment: - no heme on exam - previously on lumigan but stopped everything after Cataract extraction - finished prednisolone acetate 1% taper in August 2021 following Cataract extraction - likely rebound inflammation - Anterior chamber quiet today - no RLF's noted on gonio or REGIONAL MAINTENANCE MANAGER today - gonio shows the angle to be open with multiple areas of PAS scattered; iStents noted - Intraocular pressure stable - stopped all drops at the end of January 2022 - now with recurrence of macular edema right eye - UWFA today shows late macular and peripheral leakage without late disc hyperfluorescence - recommend to restart prednisolone acetate 1% four times a day and proceed with very slow taper - restart combigan twice a day right eye - follow up 8 weeks with Mouna Miranda MD H40.1131 Primary open angle glaucoma (POAG) of both eyes, mild stage Comment: - s/p SLT Both eyes with Dr Eileen Richard in 2018 - IOPs were previously controlled on Lumigan monotherapy BUT is now on Combigan both eyes twice a day - continue present management with Dr Grimm Z96.1 Pseudophakia of both eyes Comment: s/p Cataract extraction and iStent placement both eyes with Dr Persaud - right eye: 07/26/2021 - left eye: 07/12/2021 Any documentation recorded by the scribe accurately reflects the service I personally performed andthe decisions made by myself, Mouna Miranda MD. I have confirmed and edited as necessary the relevant ophthalmic history, ROS, and the neuro exam findings as obtained by others. I have seen and examined Royal Bellamy. I have discussed the case and the management of this patient's care with theResident/Fellow, if applicable. I also have reviewed and agree with the assessment and plan as stated above and agree with all of its relevant components. documented in this encounterM[facility]03[facility] NoteHNO ID: [id number] Author: Mouna Miranda MD Service: ? Author Type: Physician Type: Progress Notes Filed: 11/21/2021 10:48 AM Note Text: Referred for macular edema right eye - currently followed by Dr Grimm - per patient, she was seen by Dr Grimm about 2 weeks ago AND dx with macular edema and started prednisolone acetate 1% and ketorolac - recent Cataract extraction with iStent placement with Dr Persaud [facility] Hx: HTN; HLD; CAD Current Drops: - prednisolone acetate 1% four times a day right eye - ketorolac four times a day right eye - combigan both eyes three times a day ASSESSMENT/PLAN Last dilated fundus exam: 11/21/2021 H35.351 Macular edema, right eye (primary encounter diagnosis) Comment: - no heme on exam - previously on lumigan but stopped everything after Cataract extraction - finished prednisolone acetate 1% taper in August 2021 following Cataract extraction - likely rebound inflammation - Anterior chamber reaction resolved on exam today - resolution of intraretinal fluid and subretinal fluid on OCT today - using drops as above - Intraocular pressure stable - recommend to begin SLOW taper of prednisolone acetate 1% AND ketorolac - decrease to three times a day starting today for both drops - decrease to twice a day December 22 - once daily January 21 then STOP February 21 - continue to follow up with Dr Grimm for Intraocular pressure management and combigan - follow up with Mouna Miranda MD in March H40.1131 Primary open angle glaucoma (POAG) of both eyes, mild stage Comment: - s/p SLT Both eyes with Dr Eileen Richard in 2017 - IOPs were previously controlled on Lumigan monotherapy BUT is now on Combigan both eyes twice a day - continue present management with Dr Grimm Z96.1 Pseudophakia of both eyes Comment: s/p Cataract extraction and iStent placement both eyes with Dr Persaud - right eye: 07/26/2021 - left eye: 07/12/2021 Any documentation recorded by the scribe accurately reflects the service I personally performed and the decisions made by myself, Mouna Miranda MD. I have confirmed and edited as necessary the relevant ophthalmic history, ROS, and the neuro exam findings as obtained by others. I have seen and examined Royal Bellamy. I have discussed the case and the management of this patient's care with the Resident/Fellow, if applicable. I also have reviewed and agree with the assessment and plan as stated above and agree with all of its relevant components.[facility]02-01-2022 NoteHNO ID: [id number] Author: Mouna Miranda MD Service: ? Author Type: Physician Type: Progress Notes Filed: 10/24/2021 8:52 AM Note Text: Referred for macular edema right eye - currently followed by Dr Grimm - per patient, she was seen by Dr Grimm about 2 weeks ago AND dx with macular edema and started prednisolone acetate 1% and ketorolac - recent Cataract extraction with iStent placement with Dr Persaud [facility] Hx: HTN; HLD; CAD Current Drops: - prednisolone acetate 1% four times a day right eye - ketorolac four times a day right eye - combigan both eyes twice a day ASSESSMENT/PLAN Last dilated fundus exam: October 24, 2021 H35.351 Macular edema, right eye (primary encounter diagnosis) Comment: - no heme on exam - previously on lumigan but stopped everything after Cataract extraction - finished prednisolone acetate 1% taper in August 2021 following Cataract extraction - likely rebound inflammation - mild Anterior chamber reaction both eyes on dilated exam today - intraretinal fluid and trace subretinal fluid on OCT today - using prednisolone acetate 1% four times a day and ketorolac four times a day right eye now - CONTINUE - Intraocular pressure stable - patient had picture of OCT from visit with Dr Grimm (10/18/2021) and today's OCT shows definitive improvement - follow up in 4-6 weeks with Mouna Miranda MD H40.1131 Primary open angle glaucoma (POAG) of both eyes, mild stage Comment: - s/p SLT Both eyes with Dr Eileen Richard in 2018 - IOPs were previously controlled on Lumigan monotherapy BUT is now on Combigan both eyes twice a day - continue present management with Dr Grimm Z96.1 Pseudophakia of both eyes Comment: s/p Cataract extraction and iStent placement both eyes with Dr Persaud - right eye: 07/26/2021 - left eye: 07/12/2021 Any documentation recorded by the scribe accurately reflects the service I personally performed and the decisions made by myself, Mouna Miranda MD. I have confirmed and edited as necessary the relevant ophthalmic history, ROS, and the neuro exam findings as obtained by others. I have seen and examined Royal Bellamy. I have discussed the case and the management of this patient's care with the Resident/Fellow, if applicable. I also have reviewed and agree with the assessment and plan as stated above and agree with all of its relevant components.[facility]02-01-2002 History general Narrative - Reported* Type Description Date Surgical History LHC PTCA/Stent 10/2001 Surgical History Colonoscopy 01/2008 Surgical History left inguinal hernia 01/2016 Surgical History lap cholecystectomy 02/2011 Hospitalization History see surgical history [facility] Other Evaluation note* Diagnosis CME (cystoid macular edema), right documented in this encounter [facility] note* Diagnosis S/P cataract extraction and insertion of intraocular lens, right S/P cataract extraction and insertion of intraocular lens, left documented in this encounter [facility] note* Diagnosis CME (cystoid macular edema), right- Primary documented in this encounter [facility] note* Diagnosis CME (cystoid macular edema), right documented in this encounter [facility] note* Diagnosis CME (cystoid macular edema), right- Primary documented in this encounter [facility] note* Diagnosis CME (cystoid macular edema), right- Primary documented in this encounter [facility] note* Diagnosis CME (cystoid macular edema), right- Primary Primary open angle glaucoma (POAG) of both eyes, mild stage documented in this encounter [facility] noteNo InformationNort Vgift Other History general Narrative - Reported* Type Description Date Medical History High risk medication use Medical History Anemia Medical History Benign non-nodular p rostatic hyperplasia with lower urinary tract symptoms Medical History Hyperlipidemia type II Medical History Essential hypertension Medical History ASHD (arteriosclerotic heart dis ease) Medical History Cellulitis of left external ear Medical History Anterior cervical lymphadenopath y Surgical History LHC PTCA/Stent 10/2001 Surgical History Colonoscopy 01/2008 Surgical History left inguinal hernia 01/2016 Surgical History lap cholecystectomy 02/2011 Hospitalization History see surgical history [facility] Other History general Narrative - Reported* Type Description Date Medical History High risk medication use Medical History Anemia Medical History Benign non-nodular p rostatic hyperplasia with lower urinary tract symptoms Medical History Hyperlipidemia type II Medical History Essential hypertension Medical History ASHD (arteriosclerotic heart dis ease) Medical History Cellulitis of left external ear Medical History Anterior cervical lymphadenopath y Medical History Hyperlipidemia, unspecified (res olved 05/17/2020) Medical History Enlarged prostate wi thout lower urinary tract symptoms (resolved 05/17/2020) Medical History Encounter for blood typing (reso lved 05/17/2020) Surgical History LHC PTCA/Stent 10/2001 Surgical History Colonoscopy 01/2008 Surgical History left inguinal hernia 01/2016 Surgical History lap cholecystectomy 02/2011 Hospitalization History see surgical history [facility] Other Advance Directives Documents on File Type Date Recorded Patient Account Service Representative Expl anation Advance Directive(s) 07/26/2021 8:07 AM Advance Directive(s) 07/12/2021 10:33 AM Medications Administered Section Active Administered Medications - up to 3 most recent administrations Medication Order MAR Action Action Date Dose Rate Site fluorescein-benoxinate 0.25-0.4 % 1 Drop (FLURESS) 1 Drop, BOTH EYES, DIRECTED, Starting on Sat07/17/22 at 1030, Until Sat07/17/22 at 2229, Administer for applanation tonometry. In the event of a Fluress shortage, administer Catrina-Fluor 1 drop into both eyes as directed for applanation tonometry Given 07/17/2022 10:30 AM EDT 1 Drop PHENYLephrine 2.5 % 1 Drop (AK-DILATE, DAO-SYNEPHRINE) 1 Drop, BOTH EYES, DIRECTED, Starting on 07/17/22 at 1030, Until 07/17/22 at 2229, Administer for dilation PROTECT FROM LIGHT Given 07/17/2022 10:30 AM EDT 1 Drop tropicamide 1 % 1 Drop (MYDRIACYL) 1 Drop, BOTH EYES, DIRECTED, Starting on Sat07/17/22 at 1030, Until Tu07/17/22 at 2229, Administer for dilation Given 07/17/2022 10:30 AM EDT 1 Drop Summary Purpose Family History No Family History Records FoundNo Family History Records Found Additional Source Comments Source Comments (unrecognize d section and content) In the event this informatio n is protected by the Federal Confidentiality of Alcohol and Drug Abuse Patient Records regulations: The Federal rules restrict any use of the information to criminally investigate or prosecute any alcohol or drug abuse patient.[facility] the event this information is protected by the Federal Confidentiality of Alcohol and Drug Abuse Patient Records regulations: The Federal rules restrict any use of the information to criminally investigate or prosecute any alcohol or drug abuse patient.[facility] the event this information is protected by the Federal Confidentiality of Alcohol and Drug Abuse Patient Records regulations: The Federal rules restrict any use of the information to criminally investigate or prosecute any alcohol or drug abuse patient.[facility] Hospital[facility] the event this information is protected by the Federal Confidentiality of Alcohol and Drug Abuse Patient Records regulations: The Federal rules restrict any use of the information to criminally investigate or prosecute any alcohol or drug abuse patient.[facility] Hospital[facility] the event this information is protected by the Federal Confidentiality of Alcohol and Drug Abuse Patient Records regulations: The Federal rules restrict any use of the information to criminally investigate or prosecute any alcohol or drug abuse patient.[facility] Hospital[facility] the event this information is protected by the Federal Confidentiality of Alcohol and Drug Abuse Patient Records regulations: The Federal rules restrict any use of the information to criminally investigate or prosecute any alcohol or drug abuse patient.[facility] the event this information is protected by the Federal Confidentiality of Alcohol and Drug Abuse Patient Records regulations: The Federal rules restrict any use of the information to criminally investigate or prosecute any alcohol or drug abuse patient.[facility] Hospital[facility] the event this information is protected by the Federal Confidentiality of Alcohol and Drug Abuse Patient Records regulations: The Federal rules restrict any use of the information to criminally investigate or prosecute any alcohol or drug abuse patient.[facility] Hospital[facility] the event this information is protected by the Federal Confidentiality of Alcohol and Drug Abuse Patient Records regulations: The Federal rules restrict any use of the information to criminally investigate or prosecute any alcohol or drug abuse patient.[facility] Reason for Visit (unrecogniz ed section and content) [phone] pink eye/COVID + Reason Comments Cystoid Macular Edema Follow Up DFE PHOTOS TAKEN Reason Comments Opened In Error Reason Onset Date Comments Refill Request 04/09/2022 Reason Comments Cystoid Macular Edema Follow Up right ey e Reason Comments Cystoid Macular Edema Follow Up Reason Comments Patient Question Care Teams (unrecognized sec tion and content) Admissions Representative Relationship Specialty Start Date End Date Clarence Keith Queen, DO [address] [facility] [place] [address] PCP - General Internal Medicine 12/06/17 Admissions Representative Relationship Specialty Start Date End Date Keith Lima Bret, DO [address] [facility] [place] [address] PCP - General Internal Medicine 12/06/17 Admissions Representative Relationship Specialty Start Date End Date Keith Lima Bret, DO [address] [facility] [place] [address] PCP - General Internal Medicine 12/06/17 Admissions Representative Relationship Specialty Start Date End Date Clarence Keith Queen, DO [address] [place] [address] PCP - General Internal Medicine 12/06/17 Admissions Representative Relationship Specialty Start Date End Date Keith Lima, DO [address] [place] [address] PCP - General Internal Medicine 12/06/17 Admissions Representative Relationship Specialty Start Date End Date Keith Lima, DO [address] [facility] [address] PCP - General Internal Medicine 12/06/17 Admissions Representative Relationship Specialty Start Date End Date Keith Lima, DO [address] [facility] [place] [address] PCP - General Internal Medicine 12/06/17 (unrecognized sect ion and content) No Status Records FoundNo Status Records Found INFORMATION SOURCE (unrecogn ized section and content) DATE CREATED AUTHOR 09/15/2022 [facility] DATE CREATED AUTHOR AUTHOR'S ORGANIZ ATNELL 01/18/2023 [facility] FOR RECORDS PERTAINING TO PATIENTS WHO ARE OR HAVE BEEN ENROLLED IN A CHEMICAL DEPENDENCY/SUBSTANCEABUSE PROGRAM, SOME INFORMATION MAY BE OMITTED. This clinical summary was aggregated from multiple sources. Caution should be exercised in using it in the provision of clinical care. This summary normalizes information from multiple sources, and as a consequence, information in this document may materially change the coding, format and clinical context of patient data. In addition, data may be omitted in some cases. CLINICAL DECISIONS SHOULD BE BASED ON THE PRIMARY CLINICAL RECORDS. [employer] provides no warranty or guarantee of the accuracy or completeness of information in this document.
[2024-03-09 08:03] LABS: Basophils Percent Auto 0.4 % (0.2-2.0); Eosinophils Absolute Auto 0.2 10^3/uL (0.0-0.7); Eosinophils Percent Auto 2.9 % (0.9-7.0); Hematocrit 40.9 % (42.0-54.0); Hemoglobin 13.6 g/dL (14.0-18.0); Immature Granulocytes Abs Auto 0.01 10^3/uL (0.00-0.03); Immature Granulocytes Pct Auto 0.2 % (0.0-0.5); Lymphocytes Absolute Auto 1.7 10^3/uL (1.2-3.8); Lymphocytes Percent Auto 30.2 % (20.5-60.0); Mean Corpuscular HGB Conc 33.3 g/dL (29.9-35.2); Mean Corpuscular Hemoglobin 31.4 pg (25.9-34.0); Mean Corpuscular Volume 94.5 fL (80.0-94.0); Mean Platelet Volume 9.5 fL (9.5-13.5); Monocytes Absolute Auto 0.6 10^3/uL (0.3-0.8); Monocytes Percent Auto 11.5 % (1.7-12.0); Neutrophils Percent Auto 54.8 % (43.0-75.0); Platelet Count 227 10^3/uL (150-450); Red Blood Count 4.33 10^6/uL (4.70-6.10); White Blood Count 5.5 10^3/uL (4.0-11.0)
[2024-03-09 08:06] LABS: Estimated Average Glucose 123 mg/dL; Glycohemoglobin A1C 5.9 % (4.5-6.2)
[2024-03-09 08:35] LABS: Percent Iron Saturation 21.1 %
== END 2024-03-09 06:52 | disposition home or self-care (01) ==
LOC: LAB 06:54
PROVIDERS: PCP Internal Medicine; Visit Provider Internal Medicine
DX: D64.9 Anemia, unspecified (principal); R73.01 Impaired fasting glucose
CPT/HCPCS: 36415; 82607; 82728; 82746; 83036; 83540; 83550; 85025

== ENCOUNTER 2024-07-27 07:00 | Outpatient (OUT) | payer MEDICARE, OTHER, SELFPAY ==
[2024-07-27 07:15] LABS: Basophils Percent Auto 0.4 % (0.2-2.0); Eosinophils Absolute Auto 0.1 10^3/uL (0.0-0.7); Eosinophils Percent Auto 2.3 % (0.9-7.0); Hematocrit 39.1 % (42.0-54.0); Immature Granulocytes Abs Auto 0.01 10^3/uL (0.00-0.03); Immature Granulocytes Pct Auto 0.2 % (0.0-0.5); Lymphocytes Absolute Auto 1.5 10^3/uL (1.2-3.8); Lymphocytes Percent Auto 27.4 % (20.5-60.0); Mean Corpuscular HGB Conc 33.2 g/dL (29.9-35.2); Mean Corpuscular Hemoglobin 31.1 pg (25.9-34.0); Mean Corpuscular Volume 93.5 fL (80.0-94.0); Mean Platelet Volume 8.8 fL (9.5-13.5); Monocytes Absolute Auto 0.6 10^3/uL (0.3-0.8); Neutrophils Absolute Auto 3.1 10^3/uL (1.4-6.5); Neutrophils Percent Auto 58.7 % (43.0-75.0); Platelet Count 187 10^3/uL (150-450); Red Blood Count 4.18 10^6/uL (4.70-6.10); Red Cell Distribution Width 12.3 % (11.0-15.0); White Blood Count 5.3 10^3/uL (4.0-11.0)
== END 2024-07-27 07:01 | disposition home or self-care (01) ==
LOC: LAB 07:02
PROVIDERS: PCP Internal Medicine; Visit Provider Internal Medicine
DX: D64.9 Anemia, unspecified (principal)
CPT/HCPCS: 36415; 85025

== ENCOUNTER 2024-11-02 07:41 | Outpatient (OUT) | payer MEDICARE, OTHER, SELFPAY ==
--- OUTSIDE RECORDS SUMMARY | 2024-11-02 07:48 | XMS_ITS | CCD ---
Author Organization [facility] Care Team Providers Care Chocolate Temperer Name Role Phone Keith Lima DO Primary Care Provider BABIUCH, MOUNA Referring Unavailable BABIUCH, MOUNA Attending Unavailable BALL, KEITH Queen Primary Care Unavailable BABIUCH, MOUNA Attending Unavailable BABIUCH, MOUNA Referring Unavailable BALL, KEITH Queen Primary Care Unavailable CLARENCE, KEITH Queen Primary Care Unavailable BABIUCH, MOUNA Attending Unavailable BABIUCH, MOUNA Referring Unavailable BABIUCH, MOUNA Attending Unavailable CLARENCE, KEITH Queen Primary Care Unavailable BABIUCH, MOUNA Attending Unavailable BABIUCH, MOUNA Referring Unavailable BALL, KEITH Queen Primary Care Unavailable BABIUCH, MOUNA Referring Unavailable BABIUCH, MOUNA Attending Unavailable BALL, KEITH Queen Primary Care Unavailable Keith Lima DO Primary Care Provider Keith Lima Unavailable REQUEST, NONE LISTED Attending Unavaila ble REQUEST, DR TUCKER [...] Allergy Type Date of Onset Reaction(s) Facility (12 sources) Penicillins; Translations: [PENICILLINS] Drug Allergy 5 [facility] (20 sources) Sulfonamides (Antibiotic); Translations: [SULFA (SULFONAMIDE ANTIBIOTICS)] Drug Allergy 8 [facility] (4 sources) Penicillin Drug Allergy Unknown [facility] Other (1 source) Penicillins Drug allergy (disorder) 6 [facility] (1 source) Sulfonamides (Antibiotic) Drug allergy (disorder) 6 [facility] (7 sources) Substance with penicillin structure and antibacterial mechanism of action (substance) Drug allergy Unknown [facility] Other Medications Current Medications Medication Drug Class(es) Dates Sig (Normalized) Sig (Original) aspirin 81 mg chewable tablet (20 sources) Platelet Aggregation Inhibitor, Nonsteroidal Anti-inflammatory Drug Start: 01-21-2024 take 1 tablet by mouth once daily Aspirin 81 mg tablet,chewable Active 81 MG PO Daily January 20, 2024 11:00pm Start: 10-26-2004 ASPIRIN 81 MG TABLET Take one (1) tablet daily . 0 10/26/2004 Active take 1 tablet by iam th every twenty-four hours Aspirin 81 81 MG 1 tablet Orally Once a day Active Comment on above: Take one (1) tablet daily . atorvastatin 80 mg oral tablet (20 sources) HMG-CoA Reductase Inhibitor Start: End: take 1 tablet by mouth once daily Atorvastatin 80 mg tablet Active 80 MG PO Daily 90 January 23, 2024 9:36am take 1 tablet by iam th every twenty-four hours Atorvastatin Calcium 80 MG 1 tablet Oral ly Once a day Active Comment on above: [...] Active levothyroxine sodium 0.05 mg oral tablet (9 sources) l-Thyroxine Start: 12-03-2023 take 1 tablet by mouth once daily in the morning Levothyroxine 50 mcg tablet Active 0 .ROUTE .COMPLEX December 03, 2023 12:11pm TAKE 1 TABLET BY MOUTH EVERY DAY IN THE MORNING ON EMPTY STOMACH Start: 12-03-2023 End: 12-03-2023 take 1 tablet by mouth once daily Levothyroxine 50 mcg tablet Discontinued 50 MCG PO Daily December 02, 2023 11:00pm December 03, 2023 12:11pm Start: 05-14-2023 take 1 tablet by iam th once daily in the morning Levothyroxine Sodium 50 MCG 1 tablet in the morning on an empty stomach Orally Once a day for 30 days Apr, Active take 1 tablet by iam th once daily in the morning Levothyroxine Sodium 50 MCG TAKE 1 TABLET BY MOUTH EVERY DAY IN THE MORNING [...] capsule (20 sources) Angiotensin Converting Enzyme Inhibitor Start: 01-21-2024 End: 01-23-2024 take 1 capsule by mouth once daily Ramipril 5 mg capsule Active 5 MG PO Daily 90 January 23, 2024 9:36am take 1 capsule by mo [facility] every twenty-four hours Ramipril 5 MG 1 capsule Orally Once a day Active Comment on above: Take 5 mg by mouth o nce daily. tropicamide 10 mg/ml ophthalmic solution (4 sources) Anticholinergic Start: 12-11-2022 End: 12-11-2022 tropicamide 1 % 1 Drop (MYDRIACYL) Start: 07-17-2022 End: 07-17-2022 tropicamide 1 % 1 Drop (MYDR IACYL) Start: 05-29-2022 End: 05-29-2022 tropicamide 1 % 1 Drop (MYDR IACYL) Start: 04-03-2022 End: 04-03-2022 tropicamide 1 % 1 Drop (MYDR IACYL) Completed/Discontinued Medications Medication Drug Class(es) Dates Sig (Normalized) Sig (Original) bimatoprost (6 sources) Prostaglandin Analog End: 07-17-2022 take 1 drop(s) into the eye(s) once [...] Coronary atherosclerosis; Translations: [Atherosclerotic heart disease of [place] coronary artery without angina pectoris] Onset: 01-16-2023 07-05-2021 Chronic Deficiency and other anemia (18 sources) Anemia; Translations: [Anemia, unspecified] 03-09-2024 Episodic Deficiency and other anemia (6 sources) Anemia, unspecified; Translations: [Anemia, unspecified] Onset: 04-19-2022 Episodic Disorders of lipid metabolism [...] sources) H/O: high risk medication; Translations: [Other nursing home (current) drug therapy] Episodic Other aftercare (2 sources) Other nursing home (current) drug therapy; Translations: [OTH CARE HOME CURRENT DRUG THERAPY] Onset: 01-16-2023 Episodic Other aftercare (5 sources) Long-term current use of drug therapy; Translations: [Other local [employer] (current) drug therapy] Episodic Other diseases of veins and lymphatics (5 sources) Peripheral venous insufficiency; Translations: [Venous insufficiency (chronic) (peripheral)] Episodic Other diseases of veins and lymphatics (2 sources) Venous insufficiency (chronic) (peripheral) Episodic Other diseases of veins and lymphatics (4 sources) Venous insufficiency of leg; Translations: [Venous insufficiency (chronic) (peripheral)] 01-22-2024 Episodic Other ear and sense organ disorders [...] of scalp, initial encounter] Episodic Thyroid disorders (15 sources) Autoimmune thyroiditis; Translations: [Autoimmune thyroiditis] Chronic Past or Other Problems Problem Classification Problem Date Documented Da te Episodic/Chronic Malaise and fatigue (5 sources) Malaise; Translations: [Other malaise] Onset: 12-24-2013 Episodic Other acquired deformities (9 sources) Acquired claw hand; 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, unspecified hand] Onset: 10-26-2004 10-26-2004 Episodic Viral infection (1 source) COVID-19 Results Test Name Value Interpretation Reference Range Facil ity Basophils Auto (Bld) [#/Vol] on 2024 Basophils (Bld) [#/Vol] Automated basophil count 0.0-0.1 [facility] Basophils/100 WBC Auto (Bld) on 2024 Basophils/100 WBC (Bld) Automated basophil % 0.2-2.0 [facility] Eosinophils/100 WBC Auto (Bl d)on 2024 Eosinophils/100 WBC (Bld) Automated eosinophil % 0.9-7.0 [facility] Erythrocyte distribution wid th Auto (RBC) [Ratio]on 2024 Erythrocyte distribution width (RBC) [Ratio] Erythrocyte distribution width [Ratio] by Automated count 11.0-15.0 [facility] Hematocrit Auto (Bld) [Volum e fraction]on 2024 Hematocrit (Bld) [Volume fraction] Hematocrit [Volume Fraction] of Blood by Automated count Low 42.0-54.0 [facility] Hemoglobin [Mass/volume] in Bloodon 2024 Hemoglobin (Bld) [Mass/Vol] Hemoglobin [Mass/volume] in Blood Low 14.0-18.0 [facility] Laboratory - Hematology and Cell countson 2024 Immature granulocytes/100 WBC (Bld) 0.2 % 0.0-0.5 [facility] Leukocytes [#/volume] correc flaca for nucleated erythrocytes in Blood by Automated counon 2024 WBC corrected for nucl RBC Auto (Bld) [#/Vol] Leukocytes [#/volume] corrected for nucleated erythrocytes in Blood by Automated coun 4.0-11.0 [facility] Lymphocytes Auto (Bld) [#/Vo l]on 2024 Lymphocytes (Bld) [#/Vol] Lymphocytes [#/volume] in Blood by Automated count 1.2-3.8 [facility] Lymphocytes/100 WBC Auto (Bl d)on 2024 Lymphocytes/100 WBC (Bld) Lymphocytes/100 leukocytes in Blood by Automated count 20.5-60.0 [facility] MCH Auto (RBC) [Entitic mass ]on 2024 MCH (RBC) [Entitic mass] MCH [Entitic mass] by Automated count 25.9-34.0 [facility] MCHC Auto (RBC) [Mass/Vol]on 2024 MCHC (RBC) [Mass/Vol] MCHC [Mass/volume] by Automated count 29.9-35.2 [facility] MCV Auto (RBC) [Entitic vol] on 2024 MCV (RBC) [Entitic vol] MCV [Entitic volume] by Automated count 80.0-94.0 [facility] Monocytes Auto (Bld) [#/Vol] on 2024 Monocytes (Bld) [#/Vol] Automated blood monocyte count 0.3-0.8 [facility] Monocytes/100 WBC Auto (Bld) on 2024 Monocytes/100 WBC (Bld) Automated monocyte % 1.7-12.0 [facility] Neutrophils Auto (Bld) [#/Vo l]on 2024 Neutrophils (Bld) [#/Vol] Neutrophils [#/volume] in Blood by Automated count 1.4-6.5 [facility] Neutrophils/100 WBC Auto (Bl d)on 2024 Neutrophils/100 WBC (Bld) Automated neutrophil % 43.0-75.0 [facility] No Panel Informationon 07-27 Eosinophils # (Auto) 0.1 10 3/uL 0.0-0.7 [facility] Immature Granulocyte # (Auto) 0.01 10 3/uL 0.00-0.03 [facility] Platelet mean volume Auto (B ld) [Entitic vol]on 2024 Platelet mean volume (Bld) [Entitic vol] Platelet mean volume [Entitic volume] in Blood by Automated count Low 9.5-13.5 [facility] Platelets Auto (Bld) [#/Vol] on 2024 Platelets (Bld) [#/Vol] Platelets [#/volume] in Blood by Automated count 150-450 [facility] RBC Auto (Bld) [#/Vol]on RBC (Bld) [#/Vol] Erythrocytes [#/volume] in Blood by Automated count Low 4.70-6.10 [facility] CBC AUTO DIFFon 01-10-2023 BASO # 0.0 103/ul Normal 0.0-0.1 [facility] Comment on above: Performed By: #### C BC #### [facility] [address] [address] [address] Winter Corona Basophils/100 WBC (Bld) 0.6 % Normal 0.2-2.0 [facility] Comment on above: Performed By: #### C BC #### [facility] [address] [place] [address] Dr. Winter Corona EO # 0.2 103/ul Normal 0.0-0.7 [facility] Comment on above: Performed By: #### C BC #### [facility] [address] [place] [address] Dr. Winter Corona Eosinophils/100 WBC (Bld) 2.2 % Normal 0.9-7.0 [facility] Comment on above: Performed By: #### C BC #### [facility] [address] [place] [address] Dr. Winter Corona Erythrocyte distribution width (RBC) [Ratio] 12.1 % Normal 11.0-15.0 [facility] Comment on above: Performed By: #### C BC #### [facility] [address] [place] [address] Dr. Winter Corona Hematocrit (Bld) [Volume fraction] 41.7 % Critically low 42.0-54.0 [facility] Comment on above: Performed By: #### C BC #### [facility] [address] [place] [address] Dr. Winter Corona Hemoglobin (Bld) [Mass/Vol] 13.9 g/dL Critically low 14.0-18.0 [facility] Comment on above: Performed By: #### C BC #### [facility] [address] [place] [address] Dr. Winter Corona IG # 0.02 10e3/ul Normal 0.00-0.03 [facility] Comment on above: Performed By: #### C BC #### [facility] [address] [place] [address] Dr. Winter Corona IG % 0.3 % Normal 0.0-0.5 [facility] Comment on above: Performed By: #### C BC #### [facility] [address] [place] [address] Dr. Winter Corona LYMPH # 2.3 103/ul Normal 1.2-3.8 [facility] Comment on above: Performed By: #### C BC #### [facility] [address] [place] [address] Dr. Winter Corona Lymphocytes/100 WBC (Bld) 31.5 % Normal 20.5-60.0 [facility] Comment on above: Performed By: #### C BC #### [facility] [address] [place] [address] Dr. Winter Corona MANUAL DIFF REQ NO Normal [facility] Comment on above: Performed By: #### C BC #### [facility] [address] [place] [address] Dr. Winetr Corona MCH (RBC) [Entitic mass] 31.2 pg Normal 25.9-34.0 [facility] Comment on above: Performed By: #### C BC #### [facility] [address] [place] [address] Dr. Winter Corona MCHC (RBC) [Mass/Vol] 33.3 g/dL Normal 29.9-35.2 [facility] Comment on above: Performed By: #### C BC #### [facility] [address] [place] [address] Dr. Winter Corona MCV (RBC) [Entitic vol] 93.5 fL Normal 80.0-94.0 [facility] Comment on above: Performed By: #### C BC #### [facility] [address] [place] [address] Dr. Winter Corona MONO # 0.7 103/ul Normal 0.3-0.8 [facility] Comment on above: Performed By: #### C BC #### [facility] [address] [place] [address] Dr. Winter Corona Monocytes/100 WBC (Bld) 10.2 % Normal 1.7-12.0 [facility] Comment on above: Performed By: #### C BC #### [facility] [address] [place] [address] Dr. Winter Corona NEUT # 3.9 103/ul Normal 1.4-6.5 [facility] Comment on above: Performed By: #### C BC #### [facility] [address] [address] [address] Winter Corona Neutrophils/100 WBC (Bld) 55.2 % Normal 43.0-75.0 [facility] Comment on above: Performed By: #### C BC #### [facility] [address] [address] [address] Winter Corona Platelet mean volume (Bld) [Entitic vol] 8.6 fL Critically low 9.5-13.5 [facility] Comment on above: Performed By: #### C BC #### [facility] [address] [address] [address] Winter Corona PLT 203 103/ul Normal 150-450 [facility] Comment on above: Performed By: #### C BC #### [facility] [address] [address] [address] Winter Corona RBC 4.46 106/ul Critically low 4.70-6.10 [facility] Comment on above: Performed By: #### C BC #### [facility] [address] [address] [address] Winter Corona WBC 7.1 103/ul Normal 4.0-11.0 [facility] Comment on above: Performed By: #### C BC #### [facility] [address] [place] [address] Dr. Winter Corona LIPID PROFILEon 01-10-2023 CHOL-HDL RATIO NORM SEE BELOW Normal [facility] Comment on above: Result Comment: 3.3 - 4.4 LOW RISK 4.4 - 7.1 AVERAGE RISK 7.1 - 11.0 MODERATE RISK >11.0 HIGH RISK Performed By: #### B MP, ALT, LIPID #### [facility] [address] [address] [address] Winter Corona Cholesterol [Mass/Vol] 110 mg/dL Normal <=200 [facility] Comment on above: Performed By: #### B MP, ALT, LIPID #### [facility] [address] [address] [address] Winter Corona Cholesterol in HDL [Mass/Vol] 55 mg/dL Normal 40-60 [facility] Comment on above: Performed By: #### B MP, ALT, LIPID #### [facility] [address] [address] [address] Winter Corona Cholesterol in LDL [Mass/Vol] 44.0 mg/dL Normal [facility] Comment on above: Performed By: #### B MP, ALT, LIPID #### [facility] [address] [address] [address] Winter Corona Cholesterol.total/Cho lesterol in HDL [Mass ratio] 2.0 {ratio} Normal [facility] Comment on above: Performed By: #### B MP, ALT, LIPID #### [facility] [address] [place] [address] Dr. Winter Corona HDL NORMAL > or = 60 mg/dl - LOW CARDIOVASCULAR RISK <40 mg/dl - HIGH CARDIOVASCULAR RISK Normal [facility] Comment on above: Performed By: #### B MP, ALT, LIPID #### [facility] [address] [place] [address] Dr. Winter Corona LDL CALC NORMAL SEE BELOW Normal [facility] Comment on above: Result Comment: <100 mg/dl OPTIMAL 100 - 129 mg/dl NEAR OR ABOVE OPTIMAL 130 - 159 mg/dl BORDERLINE HIGH 160 - 189 mg/dl HIGH >190 mg/dl VERY HIGH Performed By: #### B MP, ALT, LIPID #### [facility] [address] [address] [address] Winter Corona Triglyceride [Mass/Vol] 55 mg/dL Normal <=150 [facility] Comment on above: Performed By: #### B MP, ALT, LIPID #### [facility] [address] [address] [address] Winter Corona VLDL CALC 11.0 mg/dL Normal [facility] Comment on above: Performed By: #### B MP, ALT, LIPID #### [facility] [address] [address] [address] Winter Corona PROF CHEM 8 (BAS METB)on Anion gap [Moles/Vol] 11.0 mmol/L Normal Th e [facility] Comment on above: Performed By: #### B MP, ALT, LIPID #### [facility] [address] [place] [address] Dr. Winter Corona Calcium [Mass/Vol] 9.1 mg/dL Normal 8.5-10.1 [facility] Comment on above: Performed By: #### B MP, ALT, LIPID #### [facility] [address] [place] [address] Dr. Winter Corona Chloride [Moles/Vol] 107 mmol/L Normal 98-107 [facility] Comment on above: Performed By: #### B MP, ALT, LIPID #### [facility] [address] [place] [address] Dr. Winter Corona CO2 [Moles/Vol] 28.2 mmol/L Normal 21.0-32.0 [facility] Comment on above: Performed By: #### B MP, ALT, LIPID #### [facility] [address] [place] [address] Dr. Winter Corona Creatinine [Mass/Vol] 0.95 mg/dL Normal 0.70-1.30 [facility] Comment on above: Performed By: #### B MP, ALT, LIPID #### [facility] [address] [place] [address] Dr. Winter Corona EGFR-AF HONDURAN >60 Normal >=60 [facility] Comment on above: Performed By: #### B MP, ALT, LIPID #### [facility] [address] [place] [address] Dr. Winter Corona EGFR-NON AF HONDURAN >60 Normal >=60 [facility] Comment on above: Performed By: #### B MP, ALT, LIPID #### [facility] [address] [place] [address] Dr. Winter Corona Glucose [Mass/Vol] 97 mg/dL Normal 74-106 [facility] Comment on above: Performed By: #### B MP, ALT, LIPID #### [facility] [address] [place] [address] Dr. Winter Corona Potassium [Moles/Vol] 4.2 mmol/L Normal 3.5-5.1 [facility] Comment on above: Performed By: #### B MP, ALT, LIPID #### [facility] [address] [place] [address] Dr. Winter Corona Sodium [Moles/Vol] 142 mmol/L Normal 136-145 [facility] Comment on above: Performed By: #### B MP, ALT, LIPID #### [facility] [address] [place] [address] Dr. Winter Corona Urea nitrogen [Mass/Vol] 14.0 mg/dL Normal 7.0-18.0 [facility] Comment on above: Performed By: #### B MP, ALT, LIPID #### [facility] [address] [place] [address] Dr. Winter Corona Urea nitrogen/Creatinine [Mass ratio] 14.7 mg/mg Normal [facility] Comment on above: Performed By: #### B MP, ALT, LIPID #### [facility] [address] [place] [address] Dr. Winter Corona [facility] 01-10-2023 ALT [Catalytic activity/Vol] 32 U/L Normal 16-63 [facility] Comment on above: Performed By: #### B MP, ALT, LIPID #### [facility] [address] [place] [address] Dr. Winter Niño 08-07-2022 NGHIAN Telephone (GABRIELTLN) ROYAL BELLAMY ([id number]) 1950 M Date Time Provider Department 08/07/22 MOUNA MIRANDA During your visit today, we recorded the following information about you: Angela Argueta 08/07/2022 11:17 AM Signed Pt. Saw Dr. Miranda regarding OD on 07/17 OS eye bloodshot now. He has an appt kianna/ tori on 09/11.. He would just like a call from a tech or to get some peace of mind, and know if he should be concerned and make a sooner appt.... [phone] [facility] 08/07/2022 12:35 PM Signed Spoke with patient [...] Fully Assessed Reason for Visit: Patient Question [1439] Prescriptions as of 08/07/2022 - COMBIGAN 0.2-0.5 [...] eye [H40.051] 12/31/2017 Coronary artery disease involving [place]* HTN (hypertension) [I10] HLD (hyperlipidemia) [E78.5] Encounter Status:Closed by KIMANI KNIGHT on 08/07/22 Normal [facility] CBC AUTO DIFFon 04-19-2022 BASO # 0.0 103/ul Normal 0.0-0.1 [facility] Comment on above: Performed By: #### C BC #### [facility] [address] [place] [address] Dr. Winter Corona Basophils/100 WBC (Bld) 0.5 % Normal 0.2-2.0 [facility] Comment on above: Performed By: #### C BC #### [facility] [address] [place] [address] Dr. Winter Corona EO # 0.2 103/ul Normal 0.0-0.7 [facility] Comment on above: Performed By: #### C BC #### [facility] [address] [place] [address] Dr. Winter Corona Eosinophils/100 WBC (Bld) 3.2 % Normal 0.9-7.0 [facility] Comment on above: Performed By: #### C BC #### [facility] [address] [place] [address] Dr. Winter Corona Erythrocyte distribution width (RBC) [Ratio] 12.4 % Normal 11.0-15.0 [facility] Comment on above: Performed By: #### C BC #### [facility] [address] [place] [address] Dr. Winter Corona Hematocrit (Bld) [Volume fraction] 39.5 % Critically low 42.0-54.0 [facility] Comment on above: Performed By: #### C BC #### [facility] [address] [place] [address] Dr. Winter Corona Hemoglobin (Bld) [Mass/Vol] 13.5 g/dL Critically low 14.0-18.0 [facility] Comment on above: Performed By: #### C BC #### [facility] [address] [place] [address] Dr. Winter Corona IG # 0.02 10e3/ul Normal 0.00-0.03 [facility] Comment on above: Performed By: #### C BC #### [facility] [address] [place] [address] Dr. Winter Corona IG % 0.3 % Normal 0.0-0.5 [facility] Comment on above: Performed By: #### C BC #### [facility] [address] [place] [address] Dr. Winter Corona LYMPH # 2.5 103/ul Normal 1.2-3.8 [facility] Comment on above: Performed By: #### C BC #### [facility] [address] [place] [address] Dr. Winter Corona Lymphocytes/100 WBC (Bld) 38.2 % Normal 20.5-60.0 [facility] Comment on above: Performed By: #### C BC #### [facility] [address] [place] [address] Dr. Winter Corona MANUAL DIFF REQ NO Normal [facility] Comment on above: Performed By: #### C BC #### [facility] [address] [place] [address] Dr. Winter Corona MCH (RBC) [Entitic mass] 31.6 pg Normal 25.9-34.0 [facility] Comment on above: Performed By: #### C BC #### [facility] [address] [place] [address] Dr. Winter Corona MCHC (RBC) [Mass/Vol] 34.2 g/dL Normal 29.9-35.2 [facility] Comment on above: Performed By: #### C BC #### [facility] [address] [place] [address] Dr. Winter Corona MCV (RBC) [Entitic vol] 92.5 fL Normal 80.0-94.0 [facility] Comment on above: Performed By: #### C BC #### [facility] [address] [place] [address] Dr. Winter Corona MONO # 0.7 103/ul Normal 0.3-0.8 [facility] Comment on above: Performed By: #### C BC #### [facility] [address] [place] [address] Dr. Winter Corona Monocytes/100 WBC (Bld) 10.8 % Normal 1.7-12.0 [facility] Comment on above: Performed By: #### C BC #### [facility] [address] [place] [address] Dr. iWnter Corona NEUT # 3.1 103/ul Normal 1.4-6.5 [facility] Comment on above: Performed By: #### C BC #### [facility] [address] [place] [address] Dr. Winter Corona Neutrophils/100 WBC (Bld) 47.0 % Normal 43.0-75.0 [facility] Comment on above: Performed By: #### C BC #### [facility] [address] [place] [address] Dr. Winter Corona Platelet mean volume (Bld) [Entitic vol] 10.4 fL Normal 9.5-13.5 [facility] Comment on above: Performed By: #### C BC #### [facility] [address] [place] [address] Dr. Winter Corona PLT 251 103/ul Normal 150-450 [facility] Comment on above: Performed By: #### C BC #### [facility] [address] [place] [address] Dr. Winter Corona RBC 4.27 106/ul Critically low 4.70-6.10 [facility] Comment on above: Performed By: #### C BC #### [facility] [address] [place] [address] Dr. Winter Corona WBC 6.6 103/ul Normal 4.0-11.0 [facility] Comment on above: Performed By: #### C BC #### [facility] [address] [place] [address] Dr. Winter Niño 04-09-2022 NGHIAN Telephone [facility] JOSESITOROYAL ([id number]) 1950 M Date Time Provider Department 04/09/22 MOUNA MIRANDA During your visit today, we recorded the following information about you: Sherry Samaniego, PSS 04/09/2022 2:13 PM Signed Patient has been [...] and have him follow with [facility] in [place] after his CME is under control. Sheba [...] eye [H40.051] 12/31/2017 Coronary artery disease involving [place]* HTN (hypertension) [I10] HLD (hyperlipidemia) [E78.5] Prescriptions ordered this encounter Disp Refills Start End COMBIGAN 0.2 %-0.5 % EYE DROPS 1 mL 3 04/09/2022 Route: BOTH EYES Sig: Use 1 Drop in both eyes twice daily. Medications Discontinued During This Encounter Prescriptions - COMBIGAN 0.2-0.5 % ophthalmic solution (Discontinued) Reported on 04/03/2022 Encounter Status:Closed by VIKRAM OTT on 04/09/22 [facility] GLYCOHEMOGLOBIN A1Con 2021 ADA RECOMMENDATION SEE BELOW Normal [facility] Comment on above: Result Comment: ADA RECOMMENDED LIMIT 4.0 - 6.0 ADA THERAPEUTIC TARGET < 7.0 ACTION SUGGESTED > 7.0 Performed By: #### D ATA1C #### [facility] [address] [address] [address] Winter Corona Glucose [Mass/Vol] 117 mg/dL Normal [facility] Comment on above: Performed By: #### D ATA1C #### [facility] [address] [address] [address] Winter Corona HbA1c (Bld) [Mass fraction] 5.7 % Normal 4.5-6.2 [facility] Comment on above: Performed By: #### D ATA1C #### [facility] [address] [address] [address] Winter Corona No Panel Information [facility] Vital Signs Date Time Vital Sign Value Performing Clinician Facility 08-03-2024 10:32-0500 Body mass index (BMI) [Ratio] 28 kg/m2 [facility] 08-03-2024 10:32-0500 Diastolic blood pressure 89 mm[Hg] [facility] 08-03-2024 10:32-0500 Systolic blood pressure 139 mm[Hg] [facility] 08-03-2024 10:14-0500 Body height 170.18 cm [facility] 08-03-2024 10:14-0500 Body weight 81.19 kg [facility] 08-03-2024 10:14-0500 Heart rate 48 /min [facility] 08-03-2024 10:14-0500 Respiratory rate 12 /min [facility] 04-17-2023 14:00-0400 Body height 170.18 cm Keith Lima Other [facility] Other 04-17-2023 14:00-0400 Body mass index (BMI) [Ratio] 29.35 kg/m2 Keith Lima Other [facility] Other 04-17-2023 14:00-0400 Body weight 85 kg Keith Ball Other [facility] Other 04-17-2023 14:00-0400 Diastolic blood pressure 74 mm[Hg] Keith Ball Other [facility] Other 04-17-2023 14:00-0400 Respiratory rate 12 /min Keith Ball Other [facility] Other 04-17-2023 14:00-0400 Systolic blood pressure 146 mm[Hg] Keith Ball Other [facility] Other 01-10-2023 10:30-0400 Body height 170.18 cm Keith Ball Other [facility] Other 01-10-2023 10:30-0400 Body mass index (BMI) [Ratio] 29.75 kg/m2 Keith Ball Other [facility] Other 01-10-2023 10:30-0400 Body weight 86.18 kg Keith Ball Other [facility] Other 01-10-2023 10:30-0400 Diastolic blood pressure 74 mm[Hg] Keith Ball Other [facility] Other 01-10-2023 10:30-0400 Respiratory rate 12 /min Keith Ball Other [facility] Other 01-10-2023 10:30-0400 Systolic blood pressure 163 mm[Hg] Keith Ball Other [facility] Other 01-01-2023 10:15-0400 Body height 170.18 cm Keith Ball Other [facility] Other 01-01-2023 10:15-0400 Body mass index (BMI) [Ratio] 30.16 kg/m2 Keith Lima Other [facility] Other 01-01-2023 10:15-0400 Body weight 87.36 kg Keith Lima Other [facility] Other 01-01-2023 10:15-0400 Diastolic blood pressure 84 mm[Hg] Keith Lima Other [facility] Other 01-01-2023 10:15-0400 Respiratory rate 12 /min Keith Lima Other [facility] Other 01-01-2023 10:15-0400 Systolic blood pressure 152 mm[Hg] Keith Lima Other [facility] Other Encounters Encounter Date Encounter Type Care Provider Facility Start: 08-03-2024 End: 08-03-2024 ambulatory [facility] Work Phone: Start: 08-03-2024 End: 08-03-2024 Patient encounter procedure [facility] Physician [facility] Work Phone: Start: 2024 Non-patient / Non-visit [facility] Physician [facility] Work Phone: Start: 07-24-2024 Non-patient / Non-visit [facility] Physician [facility] Work Phone: Start: 07-13-2024 End: 07-13-2024 ambulatory [facility] Work Phone: Start: 07-13-2024 End: 07-13-2024 Patient encounter procedure [facility] Physician [facility] Work Phone: Start: 11-04-2023 End: 11-04-2023 ambulatory Keith yeppt Other [facility] Other Start: 02-12-2024 Office outpatient vi sit 15 minutes Keith Ball [facility] Start: 07-15-2023 End: 07-15-2023 ambulatory Keith Clarence Other [facility] Other Start: 07-15-2023 Nursing evaluation o f patient and report Keith Lima [facility] Start: 05-21-2023 End: 05-21-2023 ambulatory Keith Lima Other [facility] Other Start: 05-21-2023 Telephone encounter Keith Ball [facility] Start: 05-20-2023 End: 05-20-2023 ambulatory Keith Ball Other [facility] Other Start: 05-20-2023 Telephone encounter Keith Ball [facility] Start: 05-10-2023 End: 05-10-2023 ambulatory Keith Lima Other [facility] Other Start: 05-10-2023 Telephone encounter Keith Ball [facility] Start: 05-07-2023 End: 05-07-2023 ambulatory Keith Clarence Other [facility] Other Start: 05-07-2023 Telephone encounter Keith Ball [facility] Start: 04-17-2023 End: 04-17-2023 ambulatory Keith Lima Other [facility] Other Start: 04-17-2023 Office outpatient vi sit 15 minutes Keith Lima [facility] Start: 04-09-2023 End: 04-09-2023 ambulatory Keith Ball Other [facility] Other Start: 04-09-2023 Telephone encounter Keith Ball [facility] Start: 01-11-2023 End: 01-11-2023 ambulatory Keith Ball Other [facility] Other Start: 01-11-2023 Telephone encounter Keith Ball [facility] Start: 01-10-2023 Patient encounter procedure Keith Lima [facility] Start: 01-10-2023 End: 01-11-[address] KEITH LIMA [facility] Other Start: 01-01-2023 End: 01-01-2023 ambulatory Keith Lima Other [facility] Other Start: 01-01-2023 Office outpatient vi sit 15 minutes Keith Lima [facility] Start: 12-11-2022 End: 12-11-2022 Patient encounter procedure Mouna Miranda MD Work Phone: Ophthalmology Comment on above: CME (cystoid macular edema), right (Primary Dx); Primary open angle glaucoma (POAG) of both eyes, mild stage Start: 09-11-2022 End: 09-11-2022 ambulatory KEITH LIMA Facility:[facility] Start: 09-11-2022 End: 09-11-2022 Patient encounter procedure Mouna Miranda MD Work Phone: Ophthalmology Comment on above: CME (cystoid macular edema), right (Primary Dx) Start: 08-07-2022 Telephone encounter Mouna martin MD Work Phone: Ophthalmology Comment on above: Patient Question Start: 07-17-2022 End: 07-17-2022 ambulatory OMUNA MIRANDA Facility:[facility] Start: 07-17-2022 End: 07-17-2022 Patient encounter procedure Mouna Miranda MD Work Phone: Ophthalmology Comment on above: CME (cystoid macular edema), right (Primary Dx) Start: 05-29-2022 End: 05-29-2022 ambulatory MOUNA MIRANDA Facility:[facility] Start: 05-29-2022 End: 05-29-2022 Patient encounter procedure Mouna Miranda MD Work Phone: Ophthalmology Comment on above: CME (cystoid macular edema), right Start: 05-24-2022 Orders Only Mouna Miranda MD Work Phone: Ophthalmology Comment on above: CME (cystoid macular edema), right (Primary Dx) Start: 04-19-2022 End: 04-20-[address] KEITH LIMA Facility:[facility] Start: 04-09-2022 Telephone encounter Mouna martin MD Work Phone: Ophthalmology Comment on above: Opened In Error Refill Request Start: 04-03-2022 End: 04-03-2022 ambulatory MOUNA MIRANDA Facility:[facility] Start: 04-03-2022 End: 04-03-2022 Patient encounter procedure Mouna Miranda MD Work Phone: Ophthalmology Comment on above: CME (cystoid macular edema), right Start: 03-14-2022 End: 03-15-[address] TUCKER LISTED REQUEST Facility:[facility] Start: 01-09-2022 Adult health examination Keith Lima Other [facility] Other Start: 11-21-2021 End: 11-21-2021 ambulatory MOUNA MIRANDA Facility:[facility] Start: 10-24-2021 End: 10-24-2021 ambulatory MOUNA MIRANDA Facility:[facility] Start: 05-17-2020 End: 05-17-2020 Blood group typing Keith Lima Other [facility] Other Procedures Date Procedure Procedure Detail Performing Clinician Start: 01-10-[address] CAITLIN Romo ISTED REQUEST Comment on above: Performed By: #### P [facility] #### [facility] [address] [place] [address] Dr. Winter Corona Start: 12-11-2022 Computerized ophthal [...] macular edema), right Expected: 05/19/2023, Expires: 11/15/2023 [facility] Work Phone: Comment on above: Expected: 05/19/2023 , Expires: 11/15/2023 Start: 09-23-2022 ADVANCE DIRECTIVE DISCUSSION ADVANCE DIRECTIVE DISCUSSION [facility] Start: 09-23-2022 DEPRESSION [facility]ESSMENT [facility] Start: 05-24-2022 Influenza vaccination INFLUENZA (#1) [facility] Start: 09-23-2021 ADVANCE DIRECTIVE DISCUSSION ADVANCE DIRECTIVE DISCUSSION [facility] Start: 09-23-2021 DEPRESSION ASSESSMENT [facility] Start: 2015 PNEUMOCOCCAL: 65+ (1 - PCV) PNEUMOCOCCAL: 65+ (1 - PCV) [facility] Start: 2000 SHINGRIX VACCINE (1 of 2) SHINGRIX VACCINE (1 of 2) [facility] Start: 1995 COLOGUARD (FIT-DNA) COLOGUARD (FIT-D NA) [facility] Start: 1995 Colonoscopy COLONOSCOPY [facility] Start: 1995 COLORECTAL CANCER SCREENING COLORECTAL CANCER SCREENING [facility] Start: [address] COLONOGRAPHY [facility] Start: 1995 DIABETES SCREEN DIABETES SCREEN [facility] Start: 1995 FECAL OCCULT BLOOD FECAL OCCULT BLOO D [facility] Start: 1995 SIGMOIDOSCOPY SIGMOIDOSCOPY [facility] Start: 1985 LIPID SCREEN LIPID SCREEN [facility] Start: 1969 Urine microalbumin profile DTAP,TDAP,TD (1 - Tdap) [facility] Start: 1968 ANNUAL PCP TEAM [employer] SOC[employer] WORKER [employer] DISEASE VISIT ANNUAL PCP TEAM CHRONIC DISEASE VISIT [facility] Start: 1968 BP CONTROLLED (<130/80) BP CONTROLLE D (<130/80) [facility] Start: 1968 Hepatitis B surface antibody level LDL CHOLESTEROL [facility] Start: 1968 HEPATITIS C SCREENING HEPATITIS C SC REENING [facility] Start: 1962 Adult depression screening assessment DEPRESSION SCREENING [facility] Start: 1950 ABDOMINAL AORTIC ANEURYSM SCREENING ABDOMINAL AORTIC ANEURYSM SCREENING [facility] Immunizations Immunization Date Immunization Notes Care Provider Abdulaziz amos 07-13-2024 influenza, high dose seasonal, preservative-free [facility] 07-15-2023 influenza, high dose seasonal, preservative-free Keith Lima Other [facility] Other 07-15-2023 influenza virus vaccine, unspecified formulation [facility] 07-04-2022 influenza virus vaccine, split virus (incl. purified surface antigen) Keith Lima Other [facility] Other 07-04-2022 influenza virus vaccine, unspecified formulation [facility] 07-04-2022 influenza, high dose seasonal, preservative-free Keith Lima Other [facility] Other 06-14-2022 COVID-19 Pfizer (bivalent) Keith Lima Other [facility] 12-28-2021 COVID-19 Pfizer Keith romo Other [facility] 12-28-2021 COVID-19 Vaccine Pfi zer - Documentation Purposes Only Keith Lima Other [facility] 06-27-2021 influenza virus vaccine, split virus (incl. purified surface antigen) Keith Lima Other [facility] Other 06-27-2021 influenza virus vaccine, unspecified formulation [facility] 06-27-2021 influenza, injectabl e, quadrivalent, contains preservative Mouna Miranda MD Work Phone: [facility] 06-19-2021 COVID-19 vaccine, ag e 12+ yr (PFIZER-BIONTECH - PURPLE TOP) Mouna Miranda MD Work Phone: [facility] 11-20-2020 COVID-19 vaccine, ag e 12+ yr (PFIZER-BIONTECH - PURPLE TOP) Mouna Miranda MD Work Phone: [facility] 10-31-2020 COVID-19 vaccine, ag e 12+ yr (PFIZER-BIONTECH - PURPLE TOP) Mouna Miranda MD Work Phone: [facility] 10-30-2020 COVID-19 Vaccine Pfi zer - Documentation Purposes Only Keith Lima Other [facility] 08-15-2020 zoster vaccine recombinant Keith Lima Other [facility] 08-15-2020 zoster vaccine, live Benjami n Ball Other [facility] 06-24-2020 influenza virus vaccine, split virus (incl. purified surface antigen) Keith Lima Other [facility] Other 06-24-2020 influenza virus vaccine, unspecified formulation [facility] 06-10-2020 zoster vaccine recombinant Keith Lima Other [facility] 06-10-2020 zoster vaccine, live Benjami n Ball Other [facility] 07-10-2019 influenza virus vaccine, split virus (incl. purified surface antigen) Keith Lima Other [facility] Other 07-10-2019 influenza virus vaccine, unspecified formulation [facility] 07-08-2018 influenza virus vaccine, split virus (incl. purified surface antigen) Keith Lima Other [facility] Other 07-08-2018 influenza virus vaccine, unspecified formulation [facility] 10-23-2017 diphtheria, tetanus toxoids and acellular pertussis vaccine, unspecified formulation Keith Lima Other [facility] 06-06-2017 influenza virus vaccine, split virus (incl. purified surface antigen) Keith Clarence Other [facility] Other 06-06-2017 influenza virus vaccine, unspecified formulation [facility] 12-27-2016 pneumococcal conjuga te vaccine, 13 valent Keith Lima Other [facility] 06-20-2016 influenza virus vaccine, split virus (incl. purified surface antigen) Keith Clarence Other [facility] Other 06-20-2016 influenza virus vaccine, unspecified formulation [facility] 12-23-2015 pneumococcal polysaccharide vaccine, 23 valent Keith Lima Other [facility] 06-27-2015 tetanus and diphther ia toxoids, adsorbed, preservative free, for adult use (5 Lf of tetanus toxoid and 2 Lf of diphtheria toxoid) Keith Clarence Other [facility] 06-28-2014 tetanus and diphther ia toxoids, adsorbed, preservative free, for adult use (5 Lf of tetanus toxoid and 2 Lf of diphtheria toxoid) Keith Clarence Other [facility] Payers Date Payer Category Payer Unknown MMO MMO MEDICARE SUPPLEMENT [id number] 2019-Present [phone] [address] [place] [address] Indemnity [id number] 2019 Unknown [id number] 2015 Medicare MEDICARE MEDICAR E A AND B [id number] 2015-Present [phone] [place] [address] Medicare [id number] 2015 Medicare MEDICARE MEDICAR E A AND B [id number] 2015-Present [phone] [place] [address] Medicare [id number] 1959 Medicare [id number] 1959 Medicare [id number] 1959 Self-pay 1950 Unknown [id number] 1950 Unknown [id number] Unknown [id number] Social History Date Type Detail Facility Start: 07-05-2021 End: 09-11-2022 Tobacco smoking status NHIS Ex-smoker [facility] End: 09-23-1984 History of tobacco use Current smoker [facility] End: 09-23-1984 History of tobacco use Cigarette Smoker [facility] Start: 07-05-2021 End: 09-11-2022 Cigarettes smoked current (pack per day) - Reported 0.5 [facility] Start: 07-05-2021 End: 09-11-2022 Tobacco use and exposure Smokeless tobacco non-user [facility] Start: 04-03-2022 End: 09-11-2022 Alcohol intake Current drinker of alcohol (finding) [facility] Start: 07-05-2021 History SDOH Alcohol Comment very rare [facility] Start: 1950 Sex Assigned At Not on file C [facility] Sex Assigned At Sex Assigned At [facility] Other Start: 1950 Sex Assigned At Male F [facility] Tobacco smoking stat NHIS Unknown if ever smoked [facility] Work Phone: Start: 08-03-2024 Sex Male (finding) [facility] Medical Equipment Procedure Code Equipment Code Equipment Origin al Text Equipment Identifier Dates Lens Iol Acrysof Trc3 21.5 - [id number] Start: 07-12-2021 Comment on above: Description: -0.27 Lens Iol Acrysof Trc3 21.5 - [id number] Start: 07-26-2021 Comment on above: Description: -0.32 Istent Inject - [id number] Start: 07-12-2021 Istent Inject - [id number] Start: 07-26-2021 Clinical Notes 10-24-2001 to [...] antibiotic drops to prevent secondary bacterial infection [facility] Other 08-28-2023 Evaluation note* Encounter Date Diagnosis Assessment Notes Treatment Notes Treatment Clinical Notes Apr, Chronic venous insufficiency of lower extremity (ICD-10 - I87.2) [facility] Other 08-18-2023 Evaluation note* Encounter Date Diagnosis Assessment Notes Treatment Notes Treatment Clinical Notes 18 Aug, 2023 Other specified hypothyroidism (ICD-10 - E03.8) Apr, Autoimmune thyroiditis (ICD-10 - E06.3) [facility] Other 07-26-2023 Evaluation note* Encounter Date Diagnosis [...] in next week w/ readings and cuff [facility] Other 07-18-2023 Evaluation note* Encounter Date Diagnosis Assessment Notes Treatment Notes Treatment Clinical Notes Mar, Anemia (ICD-10 - D64.9) [facility] Other 04-20-2023 Evaluation note* Encounter Date Diagnosis [...] High risk medication use (ICD-10 - Z79.899) [facility] Other 04-11-2023 Evaluation note* Encounter Date Diagnosis Assessment Notes Treatment Notes Treatment Clinical Notes Dec, Primary hypertension (ICD-10 - I10) This patient is instructed to consume a healthy, low-fat, low-salt diet. They are also encouraged to continue exercise to achieve/maintain a normal BMI. Dec, Eczema, dyshidrotic (ICD-10 - L30.1) Avoid washing w/ harsh soaps Moisturizers daily Topical steroids [facility] Other 03-21-2023 History of Present illness Narrative* [...] - no RLF's noted on gonio or WATCH REPAIRER APPRENTICE on prior exams & gonio has shown [...] of its relevant components. [facility] NoteHNO ID: [id number] Author: Mouna Miranda MD Service: ? Author [...] - no RLF's noted on gonio or WATCH REPAIRER APPRENTICE on prior exams AND gonio has shown [...] and agree with all of its relevant components.[facility]12-20-2022 History of Present illness Narrative* Mouna [...] - no RLF's noted on gonio or WATCH REPAIRER APPRENTICE on prior exams & gonio has shown [...] of its relevant components. [facility] Miscellaneous Notes* Telephone Encounter - ST [...] be concerned and make a sooner appt.... [phone] [employer] cell phone [facility]2022 NoteHNO ID: [id number] Author: Mouna Miranda MD Service: ? Author [...] - no RLF's noted on gonio or WATCH REPAIRER APPRENTICE on prior exams AND gonio has shown [...] and agree with all of its relevant components.[facility]10-25-20[facility] History of Present illness Narrative* Mouna [...] - no RLF's noted on gonio or WATCH REPAIRER APPRENTICE on prior exams & gonio has shown [...] of its relevant components. [facility]09-[facility]-2022 NoteHNO ID: [id number] Author: Mouna Miranda MD Service: ? Author [...] - no RLF's noted on gonio or WATCH REPAIRER APPRENTICE on prior exams AND gonio has shown [...] and agree with all of its relevant components.[facility]09-06-2022 History of Present illness Narrative* Mouna [...] - no RLF's noted on gonio or WATCH REPAIRER APPRENTICE on prior exams & gonio has shown [...] of its relevant components. [facility]07-18-2022 Miscellaneous Notes* Telephone Encounter - Vikram Ott, OD - 04/09/2022 5:01 PM EDT The [...] and have him follow with [facility] in [place] after his CME is under control. * Telephone Encounter - Sherry Samaniego, PSS - 04/09/2022 2:09 PM EDT Patient has been reminded to check with pharmacy 24 to 48hr after request. Pt is identified by name and birthdate: Yes Patient phones requesting refills as follows: Pending Prescriptions Disp Refills COMBIGAN 0.2 %-0.5 % EYE DROPS VIKTORIYA: Yes Please review and advise. [facility] NoteHNO ID: [id number] Author: Mouna Miranda MD Service: ? Author [...] - no RLF's noted on gonio or WATCH REPAIRER APPRENTICE today - gonio shows the angle to [...] and agree with all of its relevant components.[facility]07-12-[facility]22 History of Present illness Narrative* Mouna [...] - no RLF's noted on gonio or WATCH REPAIRER APPRENTICE today - gonio shows the angle to [...] of its relevant components. [facility]2022 NoteHNO ID: [id number] Author: Mouna Miranda MD Service: ? Author [...] and agree with all of its relevant components.[facility]02-01-2022 NoteHNO ID: [id number] Author: Mouna Miranda MD Service: ? Author [...] follow up in 4-6 weeks with Mouna iMranda MD [id number] Primary open angle glaucoma (POAG) [...] and agree with all of its relevant components.[facility]02-01-2002 History general Narrative - Reported* Type Description Date Surgical History C PTCA/Stent 10/2001 Surgical History Colonoscopy 01/2008 Surgical History left inguinal hernia 01/2016 Surgical History lap cholecystectomy 02/2011 Hospitalization History see surgical history [facility] Other Evaluation note* Diagnosis CME (cystoid macular edema), right [facility] Diagnosis S/P cataract extraction and insertion of intraocular lens, right S/P cataract extraction and insertion of intraocular lens, left [facility] Diagnosis CME (cystoid macular edema), right- Primary [facility] Diagnosis CME (cystoid macular edema), right [facility] Diagnosis CME (cystoid macular edema), right- Primary [facility] Diagnosis CME (cystoid macular edema), right- Primary documented in this encounter [facility] note* Diagnosis CME (cystoid macular edema), right- Primary Primary open angle glaucoma (POAG) of both eyes, mild stage documented in this encounter [facility] noteNo InformationNort [employer] Other Evaluation noteNo assessment information available [facility] Work Phone: Evaluation note* Diagnosis Onset Date Resolution Status Admit Date Anemia acute August 03, 2024 10:09am ASHD (arteriosclerotic heart disease) acute August 03, 024 10:09am Elevated cholesterol acute Nove mb2023 10:09am Essential hypertension acute No vember 2023 10:09am Hypothyroid acute July 10:09am [facility] Work Phone: History general Narrative - Reported* Type Description [...] cholecystectomy 02/2011 Hospitalization History see surgical history [facility] Other Hiswnes general Narrative - Reported* Type Description Date [...] cholecystectomy 02/2011 Hospitalization History see surgical history [facility] Other Advance Directives Documents on File Type Date Recorded Patient Research Manufacturing Operator Expl anation Advance Directive(s) 07/26/2021 8:07 AM Advance Directive(s) 07/12/2021 10:33 AM Advance Directive Response Recorded Date/ Time Advance Directives No December 02 12:02pm Advance Directive Response Recorded Date/ Time Advance Directives No December 02 11:02am Medications Administered Section Active Administered Medications - [...] Until Tu07/17/22 at 2229, Administer for dilation PROTECT FROM LIGHT Given 07/17/2022 10:30 AM EDT 1 Drop tropicamide 1 % 1 Drop (MYDRIACYL) 1 Drop, BOTH EYES, DIRECTED, Starting on Sat07/17/22 at 1030, Until Sat07/17/22 at 2229, Administer for dilation Given 07/17/2022 10:30 AM EDT 1 Drop Summary Purpose Family History Relationship Condition Age at Onset Recorded Date/T john father Unknown Chief Complaint and Reason for Visit Chief Complaint flu shot Chief Complaint Admit Date flu shot July 13, 2024 1 :46pm CC Adult Risk Stratification July 10:51am follow up August 03, 2024 10:09am Reason for Visit Admit Date Anemia August 03, 2024 10:09am ASHD (arteriosclerotic heart disease) No vember 2023 10:09am Elevated cholesterol August 03, 2024 10:09am Essential hypertension August 03 10:09am Hypothyroid August 03, 2024 10:09am Additional Source Comments Source Comments (unrecognize d section and content) In the event this informatio n is protected by the Federal Confidentiality of Alcohol and Drug Abuse Patient Records regulations: The Federal rules restrict any use of the information to criminally investigate or prosecute any alcohol or drug abuse patient.[facility] the event this information is protected by the Federal Confidentiality of Alcohol and Drug Abuse Patient Records regulations: The Federal rules restrict any use of the information to criminally investigate or prosecute any alcohol or drug abuse patient.[facility] HospitalIn the event this information is protected by the Federal Confidentiality of Alcohol and Drug Abuse Patient Records regulations: The Federal rules restrict any use of the information to criminally investigate or prosecute any alcohol or drug abuse patient.[facility] HospitalIn the event this information is protected by the Federal Confidentiality of Alcohol and Drug Abuse Patient Records regulations: The Federal rules restrict any use of the information to criminally investigate or prosecute any alcohol or drug abuse patient.[facility] HospitalIn the event this information is protected by the Federal Confidentiality of Alcohol and Drug Abuse Patient Records regulations: The Federal rules restrict any use of the information to criminally investigate or prosecute any alcohol or drug abuse patient.[facility] HospitalIn the event this information is protected by the Federal Confidentiality of Alcohol and Drug Abuse Patient Records regulations: The Federal rules restrict any use of the information to criminally investigate or prosecute any alcohol or drug abuse patient.[facility] HospitalIn the event this information is protected by the Federal Confidentiality of Alcohol and Drug Abuse Patient Records regulations: The Federal rules restrict any use of the information to criminally investigate or prosecute any alcohol or drug abuse patient.[facility] HospitalIn the event this information is protected by the Federal Confidentiality of Alcohol and Drug Abuse Patient Records regulations: The Federal rules restrict any use of the information to criminally investigate or prosecute any alcohol or drug abuse patient.[facility] HospitalIn the event this information is protected by the Federal Confidentiality of Alcohol and Drug Abuse Patient Records regulations: The Federal rules restrict any use of the information to criminally investigate or prosecute any alcohol or drug abuse patient.[facility] Reason for Visit (unrecogniz ed section and content) Reason Comments Cystoid Macular Edema Follow Up DFE PHOTOS TAKEN Reason Comments Opened In Error Reason Onset Date Comments Refill Request 04/09/2022 Reason Comments Cystoid Macular Edema Follow Up right ey e Reason Comments Cystoid Macular Edema Follow Up Reason Comments Patient Question Care Teams (unrecognized sec tion and content) Chocolate Temperer Relationship Specialty Start Date End Date Keith Lima, DO [address] [place] [address] PCP - General Internal Medicine 12/06/17 Chocolate Temperer Relationship Specialty Start Date End Date Keith Lima, DO [address] [place] [address] PCP - General Internal Medicine 12/06/17 Chocolate Temperer Relationship Specialty Start Date End Date BallKeith E, DO [address] [place] [address] PCP - General Internal Medicine 12/06/17 Chocolate Temperer Relationship Specialty Start Date End Date BallKeith E, DO [address] [place] [address] PCP - General Internal Medicine 12/06/17 Chocolate Temperer Relationship Specialty Start Date End Date BallKeith E, DO [address] [place] [address] PCP - General Internal Medicine 12/06/17 Chocolate Temperer Relationship Specialty Start Date End Date Keith Lima, DO [address] [place] [address] PCP - General Internal Medicine 12/06/17 Chocolate Temperer Relationship Specialty Start Date End Date Keith Lima, DO [address] [place] [address] PCP - General Internal Medicine 12/06/17 Team Status: Active Member Role Status Dates Keith Lima , DO Primary Care Provider Active Team Status: Inactive Member Role Status Dates Keith Lima , DO Primary Care Provide r, Attending Provider Active Start: July 13, 2024 End: July 13, 2024 Team Status: Active Member Role Status Dates Keith Lima , DO Primary Care Provide r, Attending Provider Active Start: July 24, 2024 Team Status: Active Member Role Status Dates Keith Lima , DO Primary Care Provide r, Attending Provider Active Start: 2024 Team Status: Inactive Member Role Status Dates Keith Lima , DO Primary Care Provide r, Attending Provider Active Start: August 03, 2024 End: August 03, 2024 (unrecognized sect ion and content) No Status Records FoundNo Status Records Found INFORMATION SOURCE (unrecogn ized section and content) DATE CREATED AUTHOR 09/15/2022 [facility] DATE CREATED AUTHOR AUTHOR'S ORGANIZ ATION 01/18/2023 [facility] Goals (unrecognized section and content) Goals may be documented in a n alternate section FOR RECORDS PERTAINING TO PATIENTS WHO ARE [...] BE BASED ON THE PRIMARY CLINICAL RECORDS. [facility]. provides no warranty or guarantee of the accuracy or completeness of information in this document.
[2024-11-02 07:55] LABS: Basophils Percent Auto 0.7 % (0.2-2.0); Eosinophils Absolute Auto 0.2 10^3/uL (0.0-0.7); Hematocrit 41.7 % (42.0-54.0); Immature Granulocytes Abs Auto 0.01 10^3/uL (0.00-0.03); Immature Granulocytes Pct Auto 0.2 % (0.0-0.5); Lymphocytes Absolute Auto 1.7 10^3/uL (1.2-3.8); Lymphocytes Percent Auto 28.8 % (20.5-60.0); Mean Corpuscular HGB Conc 33.6 g/dL (29.9-35.2); Mean Corpuscular Hemoglobin 31.4 pg (25.9-34.0); Mean Corpuscular Volume 93.5 fL (80.0-94.0); Mean Platelet Volume 8.5 fL (9.5-13.5); Monocytes Absolute Auto 0.6 10^3/uL (0.3-0.8); Monocytes Percent Auto 10.9 % (1.7-12.0); Neutrophils Absolute Auto 3.3 10^3/uL (1.4-6.5); Neutrophils Percent Auto 56.4 % (43.0-75.0); Platelet Count 214 10^3/uL (150-450); Red Blood Count 4.46 10^6/uL (4.70-6.10); Red Cell Distribution Width 11.9 % (11.0-15.0); White Blood Count 5.8 10^3/uL (4.0-11.0)
[2024-11-02 08:31] LABS: Percent Iron Saturation 27.8 %
== END 2024-11-02 07:42 | disposition home or self-care (01) ==
LOC: LAB 07:43
PROVIDERS: PCP Internal Medicine; Visit Provider Internal Medicine
DX: D64.9 Anemia, unspecified (principal)
CPT/HCPCS: 36415; 82728; 83540; 83550; 85025

== ENCOUNTER 2025-01-28 07:17 | Outpatient (OUT) | payer MEDICARE, OTHER, SELFPAY ==
[2025-01-28 07:38] LABS: Basophils Percent Auto 0.3 % (0.2-2.0); Eosinophils Absolute Auto 0.1 10^3/uL (0.0-0.7); Hematocrit 40.1 % (42.0-54.0); Hemoglobin 13.6 g/dL (14.0-18.0); Immature Granulocytes Abs Auto 0.01 10^3/uL (0.00-0.03); Immature Granulocytes Pct Auto 0.2 % (0.0-0.5); Lymphocytes Absolute Auto 1.7 10^3/uL (1.2-3.8); Lymphocytes Percent Auto 25.8 % (20.5-60.0); Mean Corpuscular HGB Conc 33.9 g/dL (29.9-35.2); Mean Corpuscular Hemoglobin 31.9 pg (25.9-34.0); Mean Corpuscular Volume 93.9 fL (80.0-94.0); Mean Platelet Volume 8.5 fL (9.5-13.5); Monocytes Absolute Auto 0.6 10^3/uL (0.3-0.8); Monocytes Percent Auto 9.3 % (1.7-12.0); Neutrophils Absolute Auto 4.2 10^3/uL (1.4-6.5); Neutrophils Percent Auto 62.4 % (43.0-75.0); Platelet Count 219 10^3/uL (150-450); Red Blood Count 4.27 10^6/uL (4.70-6.10); Red Cell Distribution Width 12.3 % (11.0-15.0); White Blood Count 6.7 10^3/uL (4.0-11.0)
[2025-01-28 09:14] LABS: Alanine Aminotransferase 31 U/L (16-63); Albumin Level 3.4 g/dL (3.4-5.0); Alkaline Phosphatase 65 U/L (46-116); Anion Gap 9.7; Aspartate Amino Transferase 24 U/L (15-37); BUN Creatinine Ratio 13.1; Bilirubin Total 0.8 mg/dL (0.2-1.0); Calcium 8.7 mg/dL (8.5-10.1); Carbon Dioxide 28.3 mmol/L (21.0-32.0); Chloride 101 mmol/L (98-107); Chol HDL Ratio 1.6; Cholesterol 101 mg/dL (<=200); Estimated GFR (African America >60 (>=60 mL/min/1.73m^2); Estimated GFR (Non-African Ame >60 (>=60 mL/min/1.73m^2); Globulin 3.4 g/dL; Glucose 104 mg/dL (74-106); HDL Cholesterol 63 mg/dL (40-60); Sodium 135 mmol/L (136-145); Thyroid Stimulating Hormone 3.713 uIU/mL (0.358-3.740); Total Protein 6.8 g/dL (6.4-8.2); Triglycerides 46 mg/dL (<=150); VLDL CHOLESTEROL 9.2 mg/dL
[2025-01-28 09:16] LABS: Prostate Specific Antigen Scrn 0.59 ng/mL (<=4.00)
== END 2025-01-28 07:18 | disposition home or self-care (01) ==
LOC: LAB 07:18
PROVIDERS: PCP Internal Medicine; Visit Provider Internal Medicine
DX: I25.10 Atherosclerotic heart disease of native coronary artery without angina pectoris (principal); E78.00 Pure hypercholesterolemia, unspecified; I10 Essential (primary) hypertension; Z12.5 Encounter for screening for malignant neoplasm of prostate; E03.8 Other specified hypothyroidism; E06.3 Autoimmune thyroiditis
CPT/HCPCS: 36415; 80053; 80061; 84443; 85025; G0103

== ENCOUNTER 2025-07-29 15:28 | Outpatient (OUT) | payer MEDICARE, OTHER, SELFPAY ==
--- OUTSIDE RECORDS SUMMARY | 2025-07-29 15:33 | XMS_ITS | Clinical Summary ---
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
--- OUTSIDE RECORDS SUMMARY | 2025-07-29 15:34 | XMS_ITS | CCD ---
Author Organization [facility] Care Team Providers Care Public Transportation Inspector Name Role Phone Keith Lima DO Primary [...] Unavailable BALL, KEITH Queen Primary Care Unavailable Ball Keith GONZALES Primary Care Provider Keith Lima Unavailable REQUEST, [...] Care Unavailable BALL, DR VIDES Admitting Unavailable Ball Keith GONZALES Primary Care Provider Keith Lima DO Attending Provider Allergies Allergy ClassificationReported Allergen(s)Allergy TypeDate of OnsetReaction(s) Facility (14 sources)Penicillins; Translations: [PENICILLINS]Drug Wzajltp21-01-2281Jicl [facility] (20 sources)Sulfonamides (Antibiotic); Translations: [SULFA (SULFONAMIDE ANTIBIOTICS)]Drug Etejkyt92-97-9665NrkdMrsbiiazf Clinic (4 sources)PenicillinDrug AllergyUnknoSalem [facility] Other (1 source)PenicillinsDrug allergy (disorder)11-88-9372Yxw [facility] (1 source)Sulfonamides (Antibiotic)Drug allergy (disorder)73-04-6825Pko [facility] (7 sources)Substance with penicillin structure and antibacterial mechanism of action (substance)Drug allergyUnkSouth County Hospital [facility] Other Medications Current Medications MedicationDrug Class(es)DatesSig (Normalized)Sig (Original)aspirin 81 mg chewable tablet (20 sources)Platelet Aggregation Inhibitor, Nonsteroidal Anti-inflammatory Drug Start: 77-94-0946qtej 1 tablet by mouth once dailyStart: 61-47-9194QAWDPSO 81 MG TABLET Take one (1) tablet daily . 0 10/26/2004 Activetake 1 tablet by mouth every twenty-four hoursAspirin 81 81 MG 1 tablet Orally Once a day ActiveComment on above:Take one (1) tablet daily .atorvastatin 80 mg oral tablet (20 sources)HMG-CoA Reductase InhibitorStart: 71-40-5451ckuk 1 tablet by mouth once daily at bedtimeStart: 01-07-2025 End: 55-81-1254zoiw 1 tablet by mouth once dailyAtorvastatin 80 mg tablet Discontinued 0 .ROUTE .COMPLEX 90 3 January 07, 2025 6:52am January 271:29am TAKE 1 TABLET BY MOUTH EVERY DAYStart: 01-21-2024 End: 32-51-0197vske 1 tablet by mouth once dailyAtorvastatin 80 mg tablet Discontinued 80 MG PO Daily 90 90 3 January 23, 2024 10:36am January 07, 2025 6:52amtake 1 tablet by mouth every twenty-four hoursAtorvastatin Calcium 80 MG 1 tablet Orally Once a day ActiveComment on above:Take 80 mg by mouth once daily. benazepril hydrochloride 5 mg oral tablet (2 sources)Angiotensin Converting Enzyme InhibitorStart: 07-06-2025 End: 61-04-7877fcua 1 tablet by mouth once dailybenoxinate hydrochloride 4 mg/ml / fluorescein sodium 2.5 mg/ml ophthalmic solution (4 sources)Diagnostic DyeStart: 12-11-2022 End: 52-33-2426jfssrzhhpji-benoxinate 0.25-0.4 % 1 Drop (FLURESS)Start: 07-17-2022 End: 51-68-4482katxpxccotd-benoxinate 0.25-0.4 % 1 Drop (FLURESS)Start: 05-29-2022 End: 09-07-4502zxympqrcads-benoxinate 0.25-0.4 % 1 Drop (FLURESS)Start: 04-03-2022 End: 94-51-7791svcyohregnl-benoxinate 0.25-0.4 % 1 Drop (FLURESS)ciprofloxacin 3 mg/ml ophthalmic solution (1 source)Quinolone AntimicrobialStart: 03-45-9303dsrw 2 drop(s) into the eye(s) four times dailyCiprofloxacin HCl 0.3 % 2 drops in affected eye Ophthalmic qid for 5 days Oct, Activelevothyroxine sodium 0.05 mg oral tablet (17 sources)l-ThyroxineStart: 75-71-1605ttod 1 tablet by mouth once dailyStart: 12-03-2023 End: 06-77-3269nmpz 1 tablet by mouth once daily in the morningLevothyroxine 50 mcg tablet Discontinued 0 .ROUTE .COMPLEX 90 3 November 22, 2024 5:42pm January 27, 2025 11:29am TAKE 1 TABLET BY MOUTH EVERY DAY IN THE MORNING ON EMPTY STOMACH Start: 12-03-2023 End: 94-23-6681jlcr 1 tablet by mouth once dailyLevothyroxine 50 mcg tablet Discontinued 50 MCG PO Daily December 03, 2023 12:00am December 03, 2023 1:11pm Start: 36-71-0809tvmt 1 tablet by mouth once daily in the morningLevothyroxine Sodium 50 MCG 1 tablet in the morning on an empty stomach Orally Once a day for 30 days Apr, Activetake 1 tablet by mouth once daily in the morning Levothyroxine Sodium 50 MCG TAKE 1 TABLET BY MOUTH EVERY DAY IN THE MORNING ON AN EMPTY STOMACH FOR30 DAYS Activephenylephrine hydrochloride 25 mg/ml ophthalmic solution (4 sources)alpha-1 Adrenergic AgonistStart: 12-11-2022 End: 14-01-4881DFVKBOaqwyodj 2.5 % 1 Drop (AK-DILATE, DAO-SYNEPHRINE)Start: 07-17-2022 End: 10-10-0153EWHQPFmmtihwl 2.5 % 1 Drop (AK-DILATE, DAO-SYNEPHRINE)Start: 05-29-2022 End: 19-79-6285NNQWQHejgjrph 2.5 % 1 Drop (AK-DILATE, DAO-SYNEPHRINE)Start: 04-03-2022 End: 18-64-6873QZEGNYcnqclmq 2.5 % 1 Drop (AK-DILATE, DAO-SYNEPHRINE) proparacaine hydrochloride 5 mg/ml ophthalmic solution (2 sources)Local AnestheticStart: 05-29-2022 End: 62-86-2971hjgwyyaqynfn 0.5 % 1 Drop (ALCAINE)Start: 04-03-2022 End: 19-66-7506hjejhytalkha 0.5 % 1 Drop (ALCAINE)tropicamide 10 mg/ml ophthalmic solution (4 sources)AnticholinergicStart: 12-11-2022 End: 64-40-6019embnaaocyop 1 % 1 Drop (MYDRIACYL)Start: 07-17-2022 End: 59-09-7392wggqksvcaen 1 % 1 Drop (MYDRIACYL)Start: 05-29-2022 End: 89-47-2024rtkxnfqzcdn 1 % 1 Drop (MYDRIACYL)Start: 04-03-2022 End: 53-61-2144uphsegkwdps 1 % 1 Drop (MYDRIACYL) Completed/Discontinued Medications MedicationDrug Class(es)DatesSig (Normalized)Sig (Original)bimatoprost (6 sources)Prostaglandin Analog End: 60-78-6865crrj 1 drop(s) into the eye(s) once daily at bedtimeBIMATOPROST (LUMIGAN OPHTHALMIC) Use 1 Drop in eyes daily at bedtime. 1 drop both eyes at bedtime Discontinuedtake 1 drop(s) into the eye(s) once daily at bedtimeBIMATOPROST (LUMIGAN OPHTHALMIC) Use 1 Drop in eyes daily at bedtime. 1 drop both eyes at bedtime 0ActiveComment on above:Use 1 Drop in eyes daily at bedtime. 1 drop both eyes at bedtimebrimonidine tartrate 2 mg/ml / timolol 5 mg/ml ophthalmic solution (9 sources)alpha-Adrenergic Agonist, beta-Adrenergic BlockerStart: 04-09-2022 End: 56-69-5446wsox 1 drop(s) into the eye(s) twice dailyCOMBIGAN 0.2-0.5 % ophthalmic solution Indications: S/P cataract extraction and insertion of intraocular lens, right , S/P cataract extraction and insertion of intraocular lens, left Use 1 Drop in both eyes twice daily. 1 mL 3 04/09/2022 09/11/2022 DiscontinuedStart: 08-23-2021 End: 45-75-2823DOAFXIHZ 0.2-0.5 % ophthalmic solutionComment on above:Use 1 Drop in both eyes twice daily.doxycycline hyclate 100 mg oral capsule (11 sources)Tetracycline-class DrugStart: 63-30-7866pufc 1 capsule by mouth twice daily as neededDoxycycline Hyclate 100 MG 1 capsule Orally twice daily for 5 days Dec, Not-Taking/PRNFA/mv,Ca,iron,min/lycopene/lut (MULTIVITAL ORAL) (9 sources)take 1 tablet by mouth once dailyFA/mv,Ca,iron,min/lycopene/lut (MULTIVITAL ORAL) Take 1 tablet by mouth once daily. 0 ActiveComment on above: Take 1 tablet by mouth once daily.ketorolac tromethamine 5 mg/ml ophthalmic solution (6 sources)Nonsteroidal Anti-inflammatory Drug, Cyclooxygenase InhibitorStart: 10-13-2021 End: 28-46-1639gfEHEfgim (ACULAR) 0.5 % ophthalmic solutionlisinopril 5 mg oral tablet (6 sources)Angiotensin Converting Enzyme InhibitorStart: 09-08-2024 End: 99-54-9768xcmi 1 tablet by mouth once dailyLisinopril 5 mg tablet Discontinued 5 MG PO Daily 90 90 3 January 27, 2025 11:29am July 06, 2025 9 :09pmprednisoLONE acetate 10 mg/ml ophthalmic suspension (15 sources)CorticosteroidStart: 07-11-2021 End: 82-71-3013dgdaoqcdXOSG acetate (PRED FORTE, ECONOPRED PLUS) 1 % ophthalmic suspension USE DIRECTED BY PHYSICIAN, IN OPERATIVE EYE, BEGINNING ONE DAY AFTER SURGERY 5 mL 0 07/25/2021 ActiveComment on above:USE DIRECTED BY PHYSICIAN, IN OPERATIVE EYE, BEGINNING ONE DAY AFTER SURGERYramipril 5 mg oral capsule (20 sources)Angiotensin Converting Enzyme InhibitorStart: 01-21-2024 End: 72-60-5533ztjq 1 capsule by mouth once dailyRamipril 5 mg capsule Discontinued 5 MG PO Daily 90 90 3 January 23, 2024 10:36am September 08, 2024 9 :56pmtake 1 capsule by mouth every twenty-four hoursRamipril 5 MG 1 capsule Orally Once a day ActiveComment on above:Take 5 mg by mouth once daily.12 hr timolol 5 mg/ml ophthalmic solution (2 sources)beta-Adrenergic BlockerStart: 23-50-7620vmydpvp maleate (TIMOPTIC) 0.5 % ophthalmic solution Use 1 Drop in both eyes twice daily. 5 mL 11 ActiveComment on above:Use 1 Drop in both eyes twice daily. Problems Active Problems Problem ClassificationProblemDateDocumented DateEpisodic/ChronicAcute bronchitis (5 sources)Acute bronchitis; Translations: [Acute bronchitis due to other specified organisms]EpisodicCoronary atherosclerosis and other heart disease (20 sources)Coronary atherosclerosis; Translations: [Atherosclerotic heart disease of [place] coronary artery without angina pectoris]Onset: 01-16-2023 82-00-6010NiioldbGeyibicnrs and other anemia (20 sources)Anemia; Translations: [Anemia, unspecified]31-01-2640Zrlvnskk Deficiency and other anemia (6 sources)Anemia, unspecified; Translations: [Anemia, unspecified]Onset: 95-49-7633KxjppkqeNuynvjjko of lipid metabolism (20 sources)Hyperlipidemia; Translations: [Hyperlipidemia, unspecified]Onset: 12-24-2013 Resolved: 276517-51-0712UikoawaImmrqsofq hypertension (20 sources)Hypertensive disorder; Translations: [Essential (primary) hypertension]Onset: 007830-00-9326RdbqwfdIgzdofrdqmnbs symptoms and ill- defined conditions (11 sources)Nocturia; Translations: [Nocturia]EpisodicGlaucoma (20 sources)Open-angle glaucoma of left eye; Translations: [Primary open-angle glaucoma, left eye, indeterminate stage]Onset: 546686-05-1180Jvarufb Hyperplasia of prostate (20 sources)Nocturia due to benign prostatic hypertrophy; Translations: [Benign prostatic hyperplasia with lower urinary tract symptoms]Onset: 12-24-2013 Resolved: 94-12-1920MwetegvQdltrdyxgbmeq and screening for infectious disease (10 sources)Vaccination given; Translations: [Encounter for immunization] EpisodicInflammation; infection of eye (except that caused by tuberculosis or sexually transmitteddisease) (1 source)Unspecified acute conjunctivitis, bilateralEpisodicLymphadenitis (16 sources)Anterior cervical lymphadenopathy; Translations: [Localized enlarged lymph nodes]EpisodicOther aftercare (11 sources)H/O: high risk medication; Translations: [Other predatory animal exterminator (current) drug therapy]EpisodicOther aftercare (2 sources)Other predatory animal exterminator (current) drug therapy; Translations: [OTH CURRENCY EXCHANGE SPECIALIST CURRENT DRUG THERAPY]Onset: 44-64-9102HzvvabdzRysqi aftercare (5 sources)Long-term current use of drug therapy; Translations: [Other senior living (current) drug therapy]EpisodicOther diseases of veins and lymphatics (5 sources)Peripheral venous insufficiency; Translations: [Venous insufficiency (chronic) (peripheral)]EpisodicOther diseases of veins and lymphatics (3 sources)Venous insufficiency (chronic) (peripheral); Translations: [Venous (peripheral) insufficiency, unspecified]EpisodicOther diseases of veins and lymphatics (6 sources)Venous insufficiency of leg; Translations: [Venous insufficiency (chronic) (peripheral)]08-19-2323HvjekuaeLccpu ear and sense organ disorders (14 sources)Cellulitis of left external ear; Translations: [Cellulitis of left external ear]EpisodicOther eye disorders (1 source)H/O: R cataract extraction; Translations: [Cataract extraction status, right eye]EpisodicOther eye disorders (1 source)H/O: L cataract extraction; Translations: [Cataract extraction status, left eye]EpisodicOther injuries and conditions due to external causes (5 sources)History of fall; Translations: [History of falling]EpisodicOther nervous system disorders (9 sources)Lesion of ulnar nerve; Translations: [Lesion of ulnar nerve, unspecified upper limb]Onset: 493171-41-9259GuzrbypTtjmd nervous system disorders (9 sources)Lesion of median nerve; Translations: [Other lesions of median nerve, unspecified upper limb]Onset: 592912-76-7096RbciglyJryea nutritional; endocrine; and metabolic disorders (17 sources)Overweight; Translations: [Overweight]EpisodicOther nutritional; endocrine; and metabolic disorders (1 source)OverweightEpisodicOther screening for suspected conditions (not mental disorders or infectious disease) (4 sources)Encounter for screening for malignant neoplasm of prostate; Translations: [Screening for malignant neoplasms of prostate]Onset: 01-16-2023 EpisodicComment on above:PSA: 0.59 - 5Other skin disorders (1 source)Dyshidrosis [pompholyx]EpisodicRetinal detachments; defects; vascular occlusion; and retinopathy (6 sources)Cystoid macular edema of right retina; 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, right eye]ChronicSubstance-related disorders (17 sources)Tobacco dependence in remission; Translations: [Nicotine dependence, cigarettes, in remission]ChronicSuperficial injury; contusion (10 sources)Abrasion of scalp; Translations: [Abrasion of scalp, initial encounter]EpisodicThyroid disorders (18 sources)Autoimmune thyroiditis; Translations: [Autoimmune thyroiditis] Chronic Past or Other Problems Problem ClassificationProblemDateDocumented DateEpisodic/ChronicMalaise and fatigue (5 sources)Malaise; Translations: [Other malaise]Onset: 37-33-4130TzjsjpaxXjbke acquired deformities (9 sources)Acquired claw hand; 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, unspecified hand]Onset: 114977-52-4811NvxqqfnrUcxpo infection (1 source)COVID-19 Results Test NameValueInterpretationReference RangeFacilityBasophils Auto (Bld) [#/Vol] on 95-75-8364Untrehelc (Bld) [#/Vol]Automated basophil count0.0-0.1FOhioHealth Grove City Methodist HospitalBasophils/100 WBC Auto (Bld)on 77-06-5627Udgosrwox/100 WBC (Bld)Automated basophil %0.2-2.0[facility] Eosinophils/100 WBC Auto (Bld)on 47-05-8193Tigkqsnneff/100 WBC (Bld)Automated eosinophil %0.9-7.0[facility] HospitalErythrocyte distribution width Auto (RBC) [Ratio]on 10-33-7096Mgmxmcbjylh distribution width (RBC) [Ratio]Erythrocyte distribution width [Ratio] by Automated count11.0-15.0 [facility] HospitalHematocrit Auto (Bld) [Volume fraction]on 39-05-0758Pgzluoyntv (Bld) [Volume fraction]Hematocrit [Volume Fraction] of Blood by Automated yjyeyZio91.0-54.0[facility] HospitalHemoglobin [Mass/volume] in Bloodon 00-21-4694Zlnkmgbmmi (Bld) [Mass/Vol]Hemoglobin [Mass/volume] in Blood14.0-18.0[facility] HospitalIron binding capacity [Mass/volume] in Serum or Plasmaon 72-13-8639Cimi binding capacity [Mass/Vol]Iron binding capacity [Mass/volume] in Serum or Hznfql872.0-450.0 [facility] HospitalIron saturation [Mass Fraction] in Serum or Plasmaon 78-58-1670Vwlu saturation [Mass fraction]Iron saturation [Mass Fraction] in Serum or PlasmaMercer County Community HospitalLaboratory - Chemistry and Chemistry - challengeon 16-10-5520Klqtbktu [Mass/Vol]90.0 ng/mL 26.0-388.0[facility] HospitalIron [Mass/Vol]84.0 ug/dL65.0-175.0 [facility] HospitalLaboratory - Hematology and Cell countson 16-69-5898Kgvcllvz granulocytes/100 WBC (Bld)0.2 %0.0-0.5FOhioHealth Grove City Methodist HospitalLeukocytes [#/volume] corrected for nucleated erythrocytes in Blood by Automated counon 89-01-6880GTG corrected for nucl RBC Auto (Bld) [#/Vol]Leukocytes [#/volume] corrected for nucleated erythrocytes in Blood by Automated coun4.0-11.0[facility] HospitalLymphocytes Auto (Bld) [#/Vol]on 87-89-1308Htupqvysvps (Bld) [#/Vol]Lymphocytes [#/volume] in Blood by Automated count1.2-3.8[facility] HospitalLymphocytes/100 WBC Auto (Bld)on 28-21-7939Ukiwqwrpqez/100 WBC (Bld)Lymphocytes/100 leukocytes in Blood by Automated count20.5-60.0[facility] HospitalMCH Auto (RBC) [Entitic mass]on 94-10-9287GIQ (RBC) [Entitic mass]MCH [Entitic mass] by Automated count25.9-34.0[facility] HospitalMCHC Auto (RBC) [Mass/Vol]on 23-32-9821AJQB (RBC) [Mass/Vol]MCHC [Mass/volume] by Automated count29.9-35.2FOhioHealth Grove City Methodist HospitalMCV Auto (RBC) [Entitic vol]on 41-11-0032ZVL (RBC) [Entitic vol]MCV [Entitic volume] by Automated count 80.0-94.0[facility] HospitalMonocytes Auto (Bld) [#/Vol]on 52-50-3045Lxsdktkzg (Bld) [#/Vol]Automated blood monocyte count0.3-0.8[facility] HospitalMonocytes/100 WBC Auto (Bld)on 29-11-6160Wpwwtckmw/100 WBC (Bld)Automated monocyte %1.7-12.0[facility] Neutrophils Auto (Bld) [#/Vol]on 77-48-6944Xyrxblidruo (Bld) [#/Vol]Neutrophils [#/volume] in Blood by Automated count1.4-6.5FOhioHealth Grove City Methodist Hospital Neutrophils/100 WBC Auto (Bld)on 75-78-2683Mgnywiysrgu/100 WBC (Bld)Automated neutrophil %43.0-75.0[facility] HospitalNo Panel Informationon 83-09-7362Kxdmuiwalfs # (Auto)0.2 10 3/uL0.0-0.7FOhioHealth Grove City Methodist HospitalImmature Granulocyte # (Auto)0.01 10 3/uL0.00-0.03[facility] HospitalPlatelet mean volume Auto (Bld) [Entitic vol]on 29-82-0735Bdfwvqlt mean volume (Bld) [Entitic vol]Platelet mean volume [Entitic volume] in Blood by Automated countLow9.5-13.5FOhioHealth Grove City Methodist HospitalPlatelets Auto (Bld) [#/Vol]on 79-99-0740Pylgdrdid (Bld) [#/Vol]Platelets [#/volume] in Blood by Automated ahzsx610-407EgmlittxgMercer County Community HospitalRBC Auto (Bld) [#/Vol]on 85-44-4434YLB (Bld) [#/Vol]Erythrocytes [#/volume] in Blood by Automated count Low4.70-6.10[facility] HospitalBasophils Auto (Bld) [#/Vol]on 07-09-0548Lgglrwvkz (Bld) [#/Vol]Automated basophil count0.0-0.1FOhioHealth Grove City Methodist HospitalBasophils/100 WBC Auto (Bld)on 54-51-5250Okekqfymo/100 WBC (Bld)Automated basophil %0.2-2.0[facility] Eosinophils/100 WBC Auto (Bld)on 01-74-4175Xctarikwccr/100 WBC (Bld)Automated eosinophil %0.9-7.0[facility] HospitalErythrocyte distribution width Auto (RBC) [Ratio]on 40-51-3245Duujixmlfzi distribution width (RBC) [Ratio]Erythrocyte distribution width [Ratio] by Automated count11.0-15.0 [facility] HospitalHematocrit Auto (Bld) [Volume fraction]on 74-12-8927Pffofqalax (Bld) [Volume fraction]Hematocrit [Volume Fraction] of Blood by Automated nydlwEeb09.0-54.0[facility] HospitalHemoglobin [Mass/volume] in Bloodon 81-53-8404Rpijcgcjqt (Bld) [Mass/Vol]Hemoglobin [Mass/volume] in FfpbfVjd03.0-18.0[facility] HospitalLaboratory - Hematology and Cell countson 02-38-1873Zcxjeest granulocytes/100 WBC (Bld)0.2 % 0.0-0.5FOhioHealth Grove City Methodist HospitalLeukocytes [#/volume] corrected for nucleated erythrocytes in Blood by Automated counon 72-91-0158USA corrected for nucl RBC Auto (Bld) [#/Vol]Leukocytes [#/volume] corrected for nucleated erythrocytes in Blood by Automated coun4.0-11.0[facility] Lymphocytes Auto (Bld) [#/Vol]on 04-73-7305Yzqxdzrgxwe (Bld) [#/Vol]Lymphocytes [#/volume] in Blood by Automated count1.2-3.8[facility] Lymphocytes/100 WBC Auto (Bld)on 21-11-8769Uldftornvxz/100 WBC (Bld) Lymphocytes/100 leukocytes in Blood by Automated count20.5-60.0[facility] HospitalH Auto (RBC) [Entitic mass]on 88-13-8210DLN (RBC) [Entitic mass]MCH [Entitic mass] by Automated count25.9-34.0[facility] HospitalMCHC Auto (RBC) [Mass/Vol]on 28-25-0273DEPM (RBC) [Mass/Vol]MCHC [Mass/volume] by Automated count29.9-35.2FBluffton HospitalV Auto (RBC) [Entitic vol]on 89-80-1967JWN (RBC) [Entitic vol]MCV [Entitic volume] by Automated count80.0-94.0[facility] HospitalMonocytes Auto (Bld) [#/Vol]on 36-72-0331Zduxonwig (Bld) [#/Vol]Automated blood monocyte count0.3-0.8 [facility] HospitalMonocytes/100 WBC Auto (Bld)on 2024 Monocytes/100 WBC (Bld)Automated monocyte %1.7-12.0[facility] HospitalNeutrophils Auto (Bld) [#/Vol]on 08-44-5675Ihnffvjdsmc (Bld) [#/Vol] Neutrophils [#/volume] in Blood by Automated count1.4-6.5FOhioHealth Grove City Methodist HospitalNeutrophils/100 WBC Auto (Bld)on 30-98-4129Htaawlxvkhm/100 WBC (Bld)Automated neutrophil %43.0-75.0[facility] HospitalNo Panel Informationon 28-97-8164Tkdznioeirz # (Auto)0.1 10 3/uL0.0-0.7FOhioHealth Grove City Methodist HospitalImmature Granulocyte # (Auto)0.01 10 3/uL0.00-0.03[facility] HospitalPlatelet mean volume Auto (Bld) [Entitic vol]on 67-40-0191Qtzsnqoo mean volume (Bld) [Entitic vol]Platelet mean volume [Entitic volume] in Blood by Automated countLow9.5-13.5FOhioHealth Grove City Methodist Hospital Platelets Auto (Bld) [#/Vol]on 41-81-4692Kchtvhkns (Bld) [#/Vol]Platelets [#/volume] in Blood by Automated eocue807-748NnsrumzwaMercer County Community Hospital RBC Auto (Bld) [#/Vol]on 08-16-6424MIN (Bld) [#/Vol]Erythrocytes [#/volume] in Blood by Automated countLow4.70-6.10[facility] HospitalCBC AUTO DIFFon 69-07-9021FZKN #0.0 103/ulNormal0.0-0.1The [facility] For RehabilitationComment on above:Performed By: #### CBC #### [facility] [address] [address] [address] Winter CoronaBasophils/100 WBC (Bld)0.6 %Normal0.2-2.0[facility] Comment on above:Performed By: #### CBC #### [facility] [address] [address] [address] Winter Souza #0.2 103/ulNormal0.0-0.7The [facility] For RehabilitationComment on above: Performed By: #### CBC #### [facility] [address] [place] [address] Dr. Winter Boltonosinophils/100 WBC (Bld)2.2 %Normal0.9-7.0[facility] Comment on above:Performed By: #### CBC #### [facility] [address] [address] [address] Winter Boltonrythrocyte distribution width (RBC) [Ratio]12.1 %Ojynro82.0-15.[address] [facility] [facility] HospitalComment on above:Performed By: #### CBC #### [facility] [address] [address] [address] Winter CoronaHematocrit (Bld) [Volume fraction]41.7 %Critically low42.0-54.0 [facility] For RehabilitationComment on above:Performed By: #### CBC #### [facility] [address] [place] [address] Dr. Winter CoronaHemoglobin (Bld) [Mass/Vol]13.9 g/dLCritically low14.0-18.0[facility] on above:Performed By: #### CBC #### [facility] [address] [place] [address] Dr. Winter Miranda #0.02 10e3/ulNormal0.00-0.03The [facility] For RehabilitationComment on above:Performed By: #### CBC #### [facility] [address] [place] [address] Dr. Winter Miranda %0.3 %Normal0.0-0.5The [facility] For RehabilitationComment on above: Performed By: #### CBC #### [facility] [address] [place] [address] Dr. Winter Palomo #2.3 103/ulNormal1.2-3.8The [facility] For RehabilitationComment on above:Performed By: #### CBC #### [facility] [address] [place] [address] Dr. Winter Mclaughlinhocytes/100 WBC (Bld)31.5 %Mhvfkn33.5-60.0The [facility] For RehabilitationComment on above:Performed By: #### CBC #### [facility] [address] [place] [address] Dr. Winter ObregonUAL DIFF REQNONormalThe Children'S Hospital For RehabilitationComment on above: Performed By: #### CBC #### [facility] [address] [place] [address] Dr. Winter Harris (RBC) [Entitic mass]31.2 hoElmljv50.9-34.0The [facility] For RehabilitationComment on above:Performed By: #### CBC #### [facility] [address] [place] [address] Dr. Winter Harris (RBC) [Mass/Vol]33.3 g/nKMewyzj55.9-35.2The [facility] For RehabilitationComment on above:Performed By: #### CBC #### [facility] [address] [address] [address] Winter HarrisV (RBC) [Entitic vol]93.5 mUOdyhwm11.0-94.0The [facility] For RehabilitationComment on above:Performed By: #### CBC #### [facility] [address] [place] [address] Dr. Winter Man #0.7 103/ulNormal0.3-0.8The [facility] For RehabilitationComment on above:Performed By: #### CBC #### [facility] [address] [place] [address] Dr. Winter Louisocytes/100 WBC (Bld)10.2 %Normal1.7-12.0[facility] Comment on above:Performed By: #### CBC #### [facility] [address] [place] [address] Dr. Winter Bonilla #3.9 103/ulNormal1.4-6.5The [facility] For RehabilitationComment on above:Performed By: #### CBC #### [facility] [address] [place] [address] Dr. Winter Vargasutrophils/100 WBC (Bld)55.2 %Euwxhs09.0-75.0The [facility] For RehabilitationComment on above:Performed By: #### CBC #### [facility] [address] [place] [address] Dr. Winter Vieyralet mean volume (Bld) [Entitic vol]8.6 fLCritically low 9.5-13.5The [facility] For RehabilitationComment on above:Performed By: #### CBC #### [facility] [address] [place] [address] Dr. Winter CoronaPLT203 103/nqIpmfmu899-716Bcc [facility] For RehabilitationComment on above: Performed By: #### CBC #### [facility] [address] [place] [address] Dr. Winter CoronaRBC4.46 106/ulCritically low4.70-6.10The [facility] For RehabilitationComment on above:Performed By: #### CBC #### [facility] [address] [address] [address] Winter CoronaWBC7.1 103/ulNormal4.0-11.0The [facility] Hospitalment on above: Performed By: #### CBC #### [facility] [address] [address] [address] Winter PittsID PROFILEon 38-05-1916TMME-HDL RATIO NORMSEE BELOWMercy Health St. Vincent Medical CenterComment on above:Result Comment: 3.3 - 4.4 LOW RISK 4.4 - 7.1 AVERAGE RISK 7.1 - 11.0 MODERATE RISK >11.0 HIGH RISKPerformed By: #### BMP, ALT, LIPID #### [facility] [address] [place] [address] Dr. Winter Murrellesterol [Mass/Vol]110 mg/dLNormal<=200The [facility] Comment on above:Performed By: #### BMP, ALT, LIPID #### [facility] [address] [place] [address] Dr. Winter Murrellesterol in HDL [Mass/Vol]55 mg/gMLuvway01-89Cuk [facility] RehabilitationComment on above:Performed By: #### BMP, ALT, LIPID #### [facility] [address] [place] [address] Dr. Winter CoronaCholesterol in LDL [Mass/Vol]44.0 mg/dLMercy Health St. Vincent Medical CenterComment on above:Performed By: #### BMP, ALT, LIPID #### [facility] [address] [place] [address] Dr. Winter Gardner.total/Cholesterol in HDL [Mass ratio]2.0 {ratio} NormalThe [facility]'S Hospital For RehabilitationComment on above:Performed By: #### BMP, ALT, LIPID #### [facility] [address] [place] [address] Dr. Winter CoronaHDL NORMAL> or = 60 mg/dl - LOW CARDIOVASCULAR RISK <40 mg/dl - HIGH CARDIOVASCULAR RISKMercy Health St. Vincent Medical CenterComment on above:Performed By: #### BMP, ALT, LIPID #### [facility] [address] [address] [address] Winter Snowden CALC NORMALSEE BELOWMercy Health St. Vincent Medical CenterComment on above:Result Comment: <100 mg/dl OPTIMAL 100 - 129 mg/dl NEAR OR ABOVE OPTIMAL 130 - 159 mg/dl BORDERLINE HIGH 160 - 189 mg/dl HIGH >190 mg/dl VERY HIGH Performed By: #### BMP, ALT, LIPID #### [facility] [address] [address] [address] Winter CoronaTriglyceride [Mass/Vol]55 mg/dLNormal<=150[facility] Comment on above:Performed By: #### BMP, ALT, LIPID #### [facility] [address] [address] [address] Winter CoronaVLDL CALC11.0 mg/dLMercy Health St. Vincent Medical CenterComment on above: Performed By: #### BMP, ALT, LIPID #### [facility] [address] [address] [address] Winter CoronaPROF CHEM 8 (BAS METB)on 30-97-3238Nzwdu gap [Moles/Vol]11.0 mmol/LNormalSt. Anthony'S HospitalComment on above:Performed By: #### BMP, ALT, LIPID #### [facility] [address] [place] [address] Dr. Winter CoronaCalcium [Mass/Vol]9.1 mg/dLNormal8.5-10.1[facility] Comment on above:Performed By: #### BMP, ALT, LIPID #### [facility] [address] [place] [address] Dr. Winter CoronaChloride [Moles/Vol]107 mmol/OBvfueq59-605BymSt. [facility]'S Hospital Comment on above:Performed By: #### BMP, ALT, LIPID #### [facility] [address] [place] [address] Dr. Winter CoronaCO2 [Moles/Vol]28.2 mmol/FVzmsla11.0-32.0[facility] Comment on above:Performed By: #### BMP, ALT, LIPID #### [facility] [address] [address] [address] Winter CoronaCreatinine [Mass/Vol]0.95 mg/dLNormal0.70-1.30The [facility] Hospitalment on above:Performed By: #### BMP, ALT, LIPID #### [facility] [address] [address] [address] Winter BoltonGFR-AF NICARAGUAN>60Normal>=60The [facility] For RehabilitationComment on above:Performed By: #### BMP, ALT, LIPID #### [facility] [address] [address] [address] Winter BoltonGFR-NON AF NICARAGUAN>60Normal>=60The [facility] on above:Performed By: #### BMP, ALT, LIPID #### [facility] [address] [place] [address] Dr. Winter CoronaGlucose [Mass/Vol]97 mg/uIMysjnp98-908Pzq [facility] Comment on above:Performed By: #### BMP, ALT, LIPID #### [facility] [address] [address] [address] Winter CoronaPotassium [Moles/Vol]4.2 mmol/LNormal3.5-5.1[facility] Comment on above:Performed By: #### BMP, ALT, LIPID #### [facility] [address] [address] [address] Winter CoronaSodium [Moles/Vol]142 mmol/VBjrcyr789-435Wzk [facility] Comment on above:Performed By: #### BMP, ALT, LIPID #### [facility] [address] [address] [address] Winter CoronaUrea nitrogen [Mass/Vol]14.0 mg/dLNormal7.0-18.0The [facility] For RehabilitationComment on above:Performed By: #### BMP, ALT, LIPID #### [facility] [address] [address] [address] Winter CoronaUrea nitrogen/Creatinine [Mass ratio]14.7 mg/mgNormalThe [facility]hersburg HospitalComment on above:Performed By: #### BMP, ALT, LIPID #### [facility] [address] [address] [address] Winter Choe 91-89-0460BPB [Catalytic activity/Vol]32 U/OHeilmo08-64WbwMercy Health Urbana Hospital on above:Performed By: #### BMP, ALT, LIPID #### [facility] [id number] Winter Trinh 88-47-6955SFEKXwxthsbce (OPHTLN) ROYAL BELLAMY ([id number]) 1950 Date Time Provider Department 08/07/22 MOUNA MIRANDA [...] be concerned and make a sooner appt.... [phone] Moy 08/07/2022 12:35 PM Signed Spoke with patient [...] Fully Assessed Reason for Visit: Patient Question [9807] Prescriptions as of 08/07/2022 - COMBIGAN 0.2-0.5 [...] 80 mg by mouth once daily. - FA/mv,Ca,iron,min/lycopene/lut (MULTIVITAL ORAL) Take 1 tablet by mouth [...] eye [H40.051] 12/31/2017 Coronary artery disease involving [place]* HTN (hypertension) [I10] HLD (hyperlipidemia) [E78.5] Encounter Status:Closed by SHALA KNIGHT on 08/07/22NoMer[facility] AUTO DIFFon [id number] #0.0 103/ulNormal0.0-0.1The [facility] For RehabilitationComment on above:Performed By: #### CBC #### [facility] [address] [address] [address] Winter Garciaphils/100 WBC (Bld)0.5 %Normal0.2-2.0The [facility] Comment on above:Performed By: #### CBC #### [facility] [address] [address] [address] Winter Souza #0.2 103/ulNormal0.0-0.7The [facility] For RehabilitationComment on above: Performed By: #### CBC #### [facility] [address] [place] [address] Dr. Winter Boltonosinophils/100 WBC (Bld)3.2 %Normal0.9-7.0The [facility] on above:Performed By: #### CBC #### [facility] [address] [place] [address] Dr. Winter Boltonrythrocyte distribution width (RBC) [Ratio]12.4 %Ovgllg65.0-15.0 [facility]ittman Medical Centerment on above:Performed By: #### CBC #### [facility] [address] [place] [address] Dr. Winter CoronaHematocrit (Bld) [Volume fraction]39.5 %Critically low42.0-54.0 [facility] [facility]S HospitalComment on above:Performed By: #### CBC #### [facility] [address] [place] [address] Dr. Winter CoronaHemoglobin (Bld) [Mass/Vol]13.5 g/dLCritically low14.0-18.0The [facility] Hospitalment on above:Performed By: #### CBC #### [facility] [address] [place] [address] Dr. Winter Miranda #0.02 10e3/ulNormal0.00-0.03The [facility] Hospitalment on above:Performed By: #### CBC #### [facility] [address] [place] [address] Dr. Winter Miranda %0.3 %Normal0.0-0.5The [facility] For RehabilitationComment on above: Performed By: #### CBC #### [facility] [address] [place] [address] Dr. Winter MclaughlinH #2.5 103/ulNormal1.2-3.8The [facility] For RehabilitationComment on above:Performed By: #### CBC #### [facility] [address] [place] [address] Dr. Winter Tellomphocytes/100 WBC (Bld)38.2 %Sgeixf26.5-60.0The [facility] For RehabilitationComment on above:Performed By: #### CBC #### [facility] [address] [place] [address] Dr. Winter Reardon DIFF REQNONormalThe [facility] Hospital For RehabilitationComment on above: Performed By: #### CBC #### [facility] [address] [place] [address] Dr. Winter Harris (RBC) [Entitic mass]31.6 btKuwlth45.9-34.0The [facility] HospitalComment on above:Performed By: #### CBC #### [facility] [address] [place] [address] Dr. Winter Harris (RBC) [Mass/Vol]34.2 g/eCJwbwxn34.9-35.2The [facility] RehabilitationComment on above:Performed By: #### CBC #### [facility] [address] [place] [address] Dr. Winter Partida (RBC) [Entitic vol]92.5 jCQnuiaw07.0-94.0The [facility] Hospital For RehabilitationComment on above:Performed By: #### CBC #### [facility] [address] [place] [address] Dr. Winter Man #0.7 103/ulNormal0.3-0.8The [facility] Hospital For RehabilitationComment on above:Performed By: #### CBC #### [facility] [address] [place] [address] Dr. Winter Louisocytes/100 WBC (Bld)10.8 %Normal1.7-12.0The [facility] Comment on above:Performed By: #### CBC #### [facility] [address] [place] [address] Dr. Winter Bonilla #3.1 103/ulNormal1.4-6.5The [facility] For RehabilitationComment on above:Performed By: #### CBC #### [facility] [address] [place] [address] Dr. Yilan ChangNeutrophils/100 WBC (Bld)47.0 %Innlmg78.0-75.0The [facility] Hospital For RehabilitationComment on above:Performed By: #### CBC #### [facility] [address] [place] [address] Dr. Winter Joshi mean volume (Bld) [Entitic vol]10.4 fLNormal9.5-13.5The [facility] RehabilitationComment on above:Performed By: #### CBC #### [facility] [address] [place] [address] Dr. Winter CoronaPLT251 103/enDjmpik707-007Cup [facility] RehabilitationComment on above: Performed By: #### CBC #### [facility] [address] [place] [address] Dr. Winter CoronaRBC4.27 106/ulCritically low4.70-6.10The [facility] RehabilitationComment on above:Performed By: #### CBC #### [facility] [address] [place] [address] Dr. Winter CoronaWBC6.6 103/ulNormal4.0-11.0The [facility] RehabilitationComment on above: Performed By: #### CBC #### [facility] [address] [place] [address] Dr. Winter ValenzuelaPNjessica 44-49-0258LCOFIwuyarsxt (GABRIELTLN) ROYAL BELLAMY ([id number]) 1950 M Date Time Provider Department 04/09/22 [...] and have him follow with [facility] in [place] after his CME is under control. Sheba [...] 80 mg by mouth once daily. - FA/mv,Ca,iron,min/lycopene/lut (MULTIVITAL ORAL) Take 1 tablet by mouth [...] eye [H40.051] 12/31/2017 Coronary artery disease involving [place]* HTN (hypertension) [I10] HLD (hyperlipidemia) [E78.5] Prescriptions ordered this encounter Disp Refills Start End COMBIGAN 0.2 %-0.5 % EYE DROPS 1 mL 3 04/09/2022 Route: BOTH EYES Sig: Use 1 Drop in both eyes twice daily. Medications Discontinued During This Encounter Prescriptions - COMBIGAN 0.2-0.5 % ophthalmic solution (Discontinued) Reported on 04/03/2022 Encounter Status:Closed by VIKRAM OTT on 04/09/22NoKettering Health PrebleGLYCOHEMOGLOBIN A1Con 86-39-4094WCN RECOMMENDATIONSEE BELOW NormalThe [facility] RehabilitationComment on above:Result Comment: ADA RECOMMENDED LIMIT 4.0 - 6.0 ADA THERAPEUTIC TARGET < 7.0 ACTION SUGGESTED > 7.0Performed By: #### DATA1C #### [facility] [address] [address] [address] Winter CoronaGlucose [Mass/Vol]117 mg/dLNormalThKettering Health SpringfieldComment on above:Performed By: #### DATA1C #### [facility] [address] [address] [address] Winter CoronaHbA1c (Bld) [Mass fraction]5.7 %Normal4.5-6.2The [facility] RehabilitationComment on above:Performed By: #### DATA1C #### [facility] [address] [address] [address] Winter Gunetr Panel InformationMansfield Hospital Vital Signs Date TimeVital SignValuePerforming DkxkxmywhSmxidouw80-38-9833 11:14-0400Body akgjrf440.18 cmMer[facility]05-07-2025 11:14-0400Body mass index (BMI) [Ratio]28.6 kg/r7NywzcyypkMercer County Community Hospital05-07-2025 11:14-0400Body zxqmla60 kgMercer County Community Hospital05-07-2025 11:14-0400 Diastolic blood aqrdwdgt07 mm[Hg][facility]05-07-2025 11:14-0400Heart rate46 /[facility]05-07-2025 11:14-0400Respiratory rate12 /[facility]05-07-2025 11:14-0400Systolic blood vcjxaccp757 mm[Hg][facility] 08-03-2024 10:32-0500Body mass index (BMI) [Ratio]28 kg/m6TsopeptyvMercer County Community Hospital11-11-2024 10:32-0500Diastolic blood fdodxmqo84 mm[Hg][facility]11-11-2024 10:32-0500Systolic blood givejlmg249 mm[Hg] [facility]11-11-2024 10:14-0500Body laqzbm408.18 cm [facility]11-11-2024 10:14-0500Body xwrwyv22.19 kg [facility]11-11-2024 10:14-0500Heart rate48 /[facility]11-11-2024 10:14-0500Respiratory rate12 /[facility]07-26-2023 14:00-0400Body .18 cmBenjamin Ball Other [employer] Other 07-26-2023 14:00-0400Body mass index (BMI) [Ratio] 29.35 kg/d4Oeddsqwt Ball Other [employer] Other 07-26-2023 14:00-0400Body dxmpuh89 kgBenjamin Ball Other [employer] Other 07-26-2023 14:00-0400Diastolic blood uyksyimt77 mm[Hg] Keith Ball Other [employer] Other 07-26-2023 14:00-0400Respiratory rate12 /minBenjamin Ball Other [employer] Other 07-26-2023 14:00-0400Systolic blood oconajlw084 mm[Hg] Keith Ball Other [employer] Other 04-20-2023 10:30-0400Body ougxoq239.18 cmBenjamin Ball Other [employer] Other 04-20-2023 10:30-0400Body mass index (BMI) [Ratio] 29.75 kg/l9Rfcpwcmf Ball Other [employer] Other 04-20-2023 10:30-0400Body agtuvv77.18 kgBenjamin Ball Other [employer] Other 04-20-2023 10:30-0400Diastolic blood yyrogsyy26 mm[Hg] Keith Ball Other [employer] Other 04-20-2023 10:30-0400Respiratory rate12 /minBenjamin Ball Other [employer] Other 04-20-2023 10:30-0400Systolic blood gqwtmwva268 mm[Hg] Keith L[place] Other [employer] Other 04-11-2023 10:15-0400Body .18 cmBenernestine Lima Other [employer] Other 04-11-2023 10:15-0400Body mass index (BMI) [Ratio] 30.16 kg/h5Urygvylp Ball Other [employer] Other 04-11-2023 10:15-0400Body kzyevb53.36 kgBenernestine Lima Other [employer] Other 04-11-2023 10:15-0400Diastolic blood jybiuwhf45 mm[Hg] Keith Lima Other [employer] Other 04-11-2023 10:15-0400Respiratory rate12 /minBeuma Lima Other [employer] Other 04-11-2023 10:15-0400Systolic blood mm[Hg] Keith Lima Other [employer] Other Encounters Encounter DateEncounter TypeCare ProviderFacilityStart: 07-09-2025 End: 47-03-4937onlbwquneaOwvrlilg Ball DO Work Phone: -[facility] ClinicStart: 07-09-2025 End: 30-77-0737Pwxojdl encounter procedureBenernestine Lima DO-[facility] Work Phone: Start: 01-27-2025 End: 26-57-8559covmchhhtmNxdxfuomgSCCI [facility] [place] Work Phone: Start: 01-27-2025 End: 34-20-8019Ztzuure encounter procedureFirriverside regional medical center [facility] Work Phone: Start: 18-19-1439Wsg-patient / Non-visitFirroxanas Physician Group-[facility] Work Phone: Start: 08-03-2024 End: 91-16-8893hbkhsnlencFygxbtrslSCCI Hospital [place] Work Phone: Start: 08-03-2024 End: 56-28-5748Hdzzpxv encounter procedureS[facility] Work Phone: Start: 31-01-3294Tyv-patient / Non-visitFirroxanas Physician Group-[facility] Work Phone: Start: 87-94-8992Uiy-patient / Non-visitFirelands Physician [facility] Work Phone: Start: 07-13-2024 End: 11-19-7294kzhvzeqviwEbliqiooiSCCI Hospital [place] Work Phone: Start: 07-13-2024 End: 90-36-0514Qzffvlo encounter procedureNov[facility] Work Phone: Start: 11-04-2023 End: 38-53-6164lmxpmymhzeVxdxtnzg Ball Other [employer] Other Start: 63-25-0673Knvnym outpatient visit 15 minutes Keith [facility] [place] [facility] ClinicStart: 07-15-2023 End: 84-04-8992bthtibwjopMaafmeoo Ball Other [employer] Other Start: 08-62-1858Cvjhtgy evaluation of patient and reportBezuleymaernestine BundyG [facility] ClinicStart: 05-21-2023 End: 56-97-2701pvzlyhcwbeYlpcplzs Ball Other [employer] Other Start: 02-84-4358Mtmtpveom encounterBenjamin BallFPG [facility] ClinicStart: 05-20-2023 End: 13-95-1208zycdxetimiNpemiboj Ball Other [employer] Other Start: 98-60-6621Ujbgkczlb encounterBenjamin BallFPG [facility] ClinicStart: 05-10-2023 End: 29-36-7360qhtupoiisdAviquvls Ball Other [employer] Other Start: 77-00-4638Xfvjibwvh encounterBenjamin BallFPG [facility] ClinicStart: 05-07-2023 End: 62-92-6411jpmuiygshxDgnikbji Ball Other [employer] Other Start: 43-93-2524Akmzgcuim encounterBenjamin BallFPG [facility] ClinicStart: 04-17-2023 End: 07-93-1922xpchsbgkmqBtuptwcn Ball Other [employer] Other Start: 09-88-1476Kjgqvs outpatient visit 15 minutes Keith BallFPG [facility] ClinicStart: 04-09-2023 End: 77-35-0192yffgvqoxvbMtlxodgi Ball Other [employer] Other Start: 71-29-1136Uzkkkkfxm encounterBenjamin BallFPG [facility] ClinicStart: 01-11-2023 End: 04-37-4496zzicixamgcJsmflpeg Ball Other [employer] Other Start: 96-87-4272Mykuckpll encounterBenjamin BallFPG [facility] Medical ClinicStart: 79-77-2284Yzpbhrz encounter procedureBenjamin BallFPG [facility] ClinicStart: 01-10-2023 End: 29-55-1711dgkrlkugsnJW KEITH Poll Everywhere[facility] Other Start: 01-01-2023 End: 53-15-0921jgxcbxawlmQdepydhs [facility] Other NoWell[facility] Other Start: 49-28-5622Uynxaq outpatient visit 15 minutes Keith [place] [facility] ClinicStart: 12-11-2022 End: 17-74-6868Yvuryin encounter procedureMouna Miranda MD Work Phone: OphthalmologyComment on above:CME (cystoid macular edema), right (Primary Dx); Primary open angle glaucoma (POAG) of both eyes, mild stageStart: 09-11-2022 End: 81-20-6088jxkrgwmennDNXKGQFT E BALLFacility:[facility] Hospitaltart: 09-11-2022 End: 81-68-6781Xqzwvgf encounter procedureMouna Miranda MD Work Phone: OphthalmologyComment on above:CME (cystoid macular edema), right (Primary Dx)Start: 85-93-1518Jyoclmoqz encounterMouna Miranda MD Work Phone: OphthalmologyComment on above:Patient QuestionStart: 07-17-2022 End: 10-54-8653mawimdxyorJES BABIUCHFacility:[facility] Hospitaltart: 07-17-2022 End: 45-90-3777Einyirv encounter procedureMouna Miranda MD Work Phone: OphthalmologyComment on above:CME (cystoid macular edema), right (Primary Dx)Start: 05-29-2022 End: 02-41-5300wtgzgbpqzoVIA BABIUCHFacility:[facility] Hospitaltart: 05-29-2022 End: 74-77-4147Zamqvcb encounter procedureMouna Miranda MD Work Phone: OphthalmologyComment on above:CME (cystoid macular edema), rightStart: 97-91-1092Ifqfnw OnlyMouna Miranda MD Work Phone: OphthalmologyComment on above:CME (cystoid macular edema), right (Primary Dx)Start: 04-19-2022 End: 86-21-2239phpxyapgjvUK KEITH BALLFacility:G4Mepgf: 72-53-6760Sunujuplq encounterMouna Miranda MD Work Phone: OphthalmologyComment on above:Opened In ErrorRefill RequestStart: 04-03-2022 End: 93-55-5369uoawkzlzhzTZZ BABIUCHFacility:[facility] HospitalStart: 04-03-2022 End: 55-85-6077Cljrlgm encounter procedureMouna Miranda MD Work Phone: OphthalmologyComment on above:CME (cystoid macular edema), rightStart: 03-14-2022 End: 82-03-9388scgcfjtifpMT NONE LISTED REQUESTFacility:L0Answk: 06-59-4192Grtbn health examinationKeith Lima Other [employer] Other Start: 11-21-2021 End: 98-00-1089zamgvzkdowUBP BABIUCHFacility:[facility] HospitalStart: 10-24-2021 End: 51-74-3964kkrlokifdxWJO BABIUCHFacility:[facility] Hospitaltart: 05-17-2020 End: 32-64-4063Gdpux group typingKeith Lima Other [employer] Other Procedures DateProcedureProcedure DetailPerforming ClinicianStart: 00-08-5202OQX screening DR NONE LISTED REQUESTComment on above:Performed By: #### PSASC #### [facility] [address] [place] [address] Dr. Winter CoronaStart: 51-52-3515Igzhrrhabevl ophthalmic imaging Komal Miranda MD Work Phone: Start: 71-72-4943Itxbpwxmlkpi ophthalmic imaging Komal Miranda MD Work Phone: Start: 86-73-5431Bezdrmjlscah ophthalmic imaging Komal Miranda MD Work Phone: Start: 12-15-4186Rhwkslngknvf ophthalmic imaging retinaMouna Miranda MD Work Phone: Start: 04-03-2022 End: 50-94-8185Jqmgcn photography w/interpretation & reportMouna Miranda MD Work Phone: Start: 91-56-6209Smlxuozujkxn ophthalmic imaging retinaMouna Miranda MD Work Phone: Start: 79-05-5082Hobcfeaqa for malignant neoplasm of colonBenernestine Lima Other Depression screeningBenjamin Ball Other Screening for malignant neoplasm of prostateBenjadevorah Ball Other Plan of Treatment DateCare ActivityDetailAuthorStart: 05-19-2023 End: 31-86-2011KVH MACULA CIRRUS OU (BOTH EYES)OCT MACULA CIRRUS OU (BOTH EYES) OPHT Imaging Routine CME (cystoid macular edema), right Expected: 05/19/2023, Expires: 11/15/2023[facility] Work Phone: Comment on above:Expected: 05/19/2023, Expires: 11/15/2023Start: 09-37-8148UQQVFJC DIRECTIVE DISCUSSIONADVANCE DIRECTIVE DISCUSSIONClermont County Hospitaltart: 08-56-6481MEUNAQXXQK ASSESSMENTDEPRESSION ASSESSMENTClermont County Hospitaltart: 66-33-7783Mhtdbkhkn vaccinationINFLUENZA (#1) [facility] Hospitaltart: 01-07-6055MQUPSAC DIRECTIVE DISCUSSIONADVANCE DIRECTIVE DISCUSSIONClermont County Hospitaltart: 98-22-2481CJFDFLGEXS ASSESSMENTDEPRESSION ASSESSMENTClermont County Hospitaltart: 50-48-6756LHEHILPDQLZN: 65+ (1 - PCV) PNEUMOCOCCAL: 65+ (1 - PCV)[facility]: 38-40-6912JMNGMEWS VACCINE (1 of 2)SHINGRIX VACCINE (1 of 2)[facility]: 49-71-6446VJZTUOCTL (FIT-DNA)COLOGUARD (FIT-DNA)[facility]: 38-93-9556Yctsweasepu COLONOSCOPYClermont [facility] Hospitalt[facility]: 12-84-3052SHCAQJMFVI CANCER SCREENING COLORECTAL CANCER SCREENINGClermont [facility] Hospitalt[facility]: 53-40-1756XP COLONOGRAPHYCT COLONOGRAPHYClermont County Hospitaltart: 78-55-8971YHSJLOYR SCREENDIABETES SCREEN [facility]: 50-17-8622NVRCO OCCULT BLOODFECAL OCCULT BLOODCincinnati VA Medical Centerrt: 03-70-4155WVDMCCPNXGFSHSKAHXAGJNNLNGYmwokuppw ClinicStart: 55-72-6593PGTIO SCREENLIPID SCREENClermont County Hospitaltart: 40-68-7976Fhspc microalbumin profileDTAP,TDAP,TD (1 - Tdap)[facility] 1968 ANNUAL PCP TEAM CHRONIC DISEASE VISITANNUAL PCP TEAM CHRONIC DISEASE VISIT [facility]: 83-95-1576CJ CONTROLLED (<130/80)BP CONTROLLED (<130/80) [facility]: 23-70-4332Cmxswxwak B surface antibody levelLDL CHOLESTEROLClermont County Hospitaltart: 19-40-6286RSPISFVBV C SCREENINGHEPATITIS C SCREENINGCinc[facility] Medical Centerrt: 58-35-3333Rcvep depression screening assessment DEPRESSION SCREENINGCincinnati VA Medical Centerrt: 39-08-7704HVROOFNEN AORTIC ANEURYSM SCREENINGABDOMINAL AORTIC ANEURYSM SCREENINGOhioHealth Van Wert Hospitalprehensive metabolic 2000 panel - Serum or PlasmaVanderbilt University Hospital Immunizations Immunization DateImmunizationNotesCare CmlsujbcYjfargqv78-75-0138hzdusjqma, high dose seasonal, preservative-freeBenjamin Ball DO Work Phone: [facility]10-21-2024influenza, high dose seasonal, preservative-freeMercer [facility] Community Hospital10-23-2023 influenza, high dose seasonal, preservative-freeBenjamin Ball Other [facility] Other [id number] virus vaccine, unspecified formulationMer[facility] Hospital10-12-2022influenza virus vaccine, split virus (incl. purified surface antigen)Keith Lima Other [facility] Other [id number] virus vaccine, unspecified formulationMer[facility]10-12-2022influenza, high dose seasonal, preservative-freeFacundochandlerdevorah Lima Other [facility] Other [id number]-05 Pfizer (bivalent)Keith Lima Other [facility]04-07-2022COVID-19 PfizerBenbhavyadevorah Lima Other [facility]04-07-2022COVID-19 Vaccine Pfizer - Documentation Purposes OnlyBeuma Clarence Other [facility]10-05-2021influenza virus vaccine, split virus (incl. purified surface antigen)Keith Lima Other [facility] Other [id number] virus vaccine, unspecified formulationMer[facility] Hospital10-05-2021influenza, injectable, quadrivalent, contains preservativeAmy Tori GARCIA Work Phone: [facility] HospitalVxkrmz78-70-8526JNUYR-18 vaccine, age 12+ yr (PFIZER-BIONTECH - PURPLE TOP)Mouna Miranda MD Work Phone: [facility] HospitalHpzsfk47-34-0629EUEGJ-46 vaccine, age 12+ yr (PFIZER-BIONTECH - PURPLE TOP)Mouna Miranda MD Work Phone: [facility] HospitalDtjxhl83-44-6219BYCMA-39 vaccine, age 12+ yr (PFIZER-BIONTECH - PURPLE TOP)Mouna Miranda MD Work Phone: [facility] HospitalAhqidu48-66-4184VZOIQ-30 Vaccine Pfizer - Documentation Purposes OnlyBeuma Lima Other [facility]11-23-2020zoster vaccine recombinantBenernestine Lima Other [facility]11-23-2020zoster vaccine, liveBenjadevorah Lima Other [facility]10-02-2020influenza virus vaccine, split virus (incl. purified surface antigen)Keith Lima Other [facility] Other [id number] virus vaccine, unspecified formulationMer[facility] Hospital09-18-2020zoster vaccine recombinant Keith Lima Other [facility]09-18-2020zoster vaccine, liveBenernestine Lima Other [facility]10-18-2019influenza virus vaccine, split virus (incl. purified surface antigen)Keith Lima Other [facility] Other [id number] virus vaccine, unspecified formulationMer[facility] Hospital10-16-2018influenza virus vaccine, split virus (incl. purified surface antigen)Keith Lima Other [facility] Other [id number] virus vaccine, unspecified formulationMer[facility]01-31-2018diphtheria, tetanus toxoids and acellular pertussis vaccine, unspecified formulationFacundozuleymaernestine Lima Other [facility]09-14-2017influenza virus vaccine, split virus (incl. purified surface antigen)Keith Lima Other [facility] Other [id number] virus vaccine, unspecified formulationMer[facility]04-06-2017pneumococcal conjugate vaccine, 13 valentBenernestine Lima Other [facility]09-28-2016influenza virus vaccine, split virus (incl. purified surface antigen)Keith Lima Other [facility] Other [id number] virus vaccine, unspecified formulationMercer [facility] Hospital04-01-2016pneumococcal polysaccharide vaccine, 23 valentBenernestine Lima Other [facility]10-05-2015tetanus and diphtheria toxoids, adsorbed, preservative free, for adult use (5 Lf of tetanus toxoid and 2 Lf of diphtheria toxoid)Keith Lima Other [facility]10-06-2014tetanus and diphtheria toxoids, adsorbed, preservative free, for adult use (5 Lf of tetanus toxoid and 2 Lf of diphtheria toxoid)Keith Lima Other [facility] Payers DatePayer CategoryPayerPolicy [id number] MMO MEDICARE SUPPLEMENT [id number] 2019-Present [phone] [address] [place] [address] [id number] 2015MedicareMEDICARE MEDICARE A AND B [id number] 2015-Present [phone] [address] [place] [place] [address] [id number] MedicareMEDICARE MEDICARE A AND B [id number] 2015-Present [phone] [place] [address] Medicare [id number] [id number] 1960 [id number] 1960Self-[id number] Social History DateTypeDetailFacilityStart: 07-05-2021 End: 24-58-8071Sygnzff smoking status NHISEx-smokerM[facility]field Hospital End: 42-51-0569Gmpcyee of tobacco useCurrent smokerMansfield Hospital End: 40-77-5529Fvvwxmy of tobacco useCigarette SmokerClermont County Hospitaltart: 07-05-2021 End: 59-27-5475Zanrljcbwn smoked current (pack per day) - Reported0.5Cuniversity hospitals [facility] ClinicStart: 07-05-2021 End: 16-57-7356Thwpggq use and exposureSmokeless tobacco non-userClermont County Hospitaltart: 04-03-2022 End: 66-52-0471Pxfshwb intakeCurrent drinker of alcohol (finding)[facility]: 97-78-6546Gywbkmx SDOH Alcohol Commentvery rareMansfield Hospital Start: 98-48-7472Bsx Assigned At BirthNot on fileClermont County Hospitalex Assigned At [facility] Assigned At [facility] Other Start: 95-57-2543Klk Assigned At [facility] HospitalTobacco smoking status NHISUnknown if ever smoked [facility] Work Phone: Start: 08-03-2024 End: 82-69-3028UsfSazc (finding)[facility] Campustart: 83-60-4849Dslontr smoking status NHISNever smoked tobacco (finding)[facility] Medical Equipment Procedure CodeEquipment CodeEquipment Original TextEquipment IdentifierDatesLens Iol Acrysof Trc3 21.5 - [id number]: 97-31-1498Akmmroj on above: Description: -0.27Lens Iol Acrysof Trc3 21.5 - [id number]: 55-07-9972Rbrsqtq on above:Description: -0.32Istent Inject - [id number]: 62-11-7713Othbbx Inject - [id number]: 07-26-2021 Clinical Notes 10-24-2001 to 11-04-2023 Note Date & YpmtRyniOcaznqxt23-17-1377 Evaluation note* Encounter Date Diagnosis Assessment Notes Treatment Notes Treatment Clinical Notes Oct, COVID-19 (ICD-10 - U07.1) Supportive treatment Instructed to use Robitussin or Mucinex for cough, saline or Flonase NS for congestion, Tylenol forpain and fever. Self isolate at home. - [...] in public places for complete 10 days Oct,cute bacterial conjunctivitis of both eyes (ICD-10 - H10.33)Use artificial tears to hydrate eyes. 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 They are instructedto continue exercise and AHA diet plan. Mar,hronic venous insufficiency (ICD-10 - I87.2)Avoid salt and elevate lower extremities, support stockings, inspect legs and feet daily for blisters and ulcerations. Reviewed differential for lower extremity swelling - CHF, cirrhosis, CKD - medications - high salt diet - CVI He most likely has CVI He has no risk factors for DVT He does spend time sitting during the daytime Swelling resolves during sleep Mar,Essential hypertension (ICD-10 - I10)This patient is instructed to consume a healthy, low-fat, low-salt diet. They are also encouraged to continue exercise to achieve/maintain a normal BMI. Needs to monitor closely at home Stop in next week w/ readings and cuff [facility] Other 07-18-2023 Evaluation note* Encounter Date Diagnosis Assessment Notes Treatment Notes Treatment Clinical Notes Mar, Anemia (ICD-10 - D64.9) [facility] Other 04-20-2023 Evaluation note* Encounter Date Diagnosis Assessment Notes Treatment Notes Treatment Clinical Notes Dec, ASHD (arteriosclerotic heart dis ease) (ICD-10 - I25.10) This patient is stable without activity related CP, dyspnea or lightheadedness. They are instructedto continue exercise and AHA diet plan. Dec,Essential hypertension (ICD-10 - I10)This patient is instructed to consume a healthy, low-fat, low-salt diet. They are also encouraged to continue exercise to achieve/maintain a normal BMI. Dec,Elevated cholesterol (ICD-10 - E78.00)Diet and exercise with continued statin therapy. Dec,enign prostatic hyperplasia with lower urinary tract symptoms (ICD- 10 - N40.1)Symptoms tolerable Yearly KEVIN and PSA Dec,Overweight (ICD-10 - E66.3)This patient has been instructed on a low-fat, high-fiber diet. They are instructed to reduce calories, portion sizes and snacks. It is recommended that they exercise for 30 minutes, 3-5 times weekly. 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 Reviewed age-appropriate preventive testing recommended. Dec,High risk medication use (ICD-10 - Z79.899) [facility] Other 04-11-2023 Evaluation note* Encounter Date Diagnosis Assessment Notes Treatment Notes Treatment Clinical Notes Dec, Primary hypertension (ICD-10 - I 10) This patient is instructed to consume a healthy, low-fat, low-salt diet. They are also encouraged to continue exercise to achieve/maintain a normal BMI. Dec,Eczema, dyshidrotic (ICD-10 - L30.1)Avoid washing w/ harsh soaps Moisturizers daily Topical steroids [facility] Other 03-21-2023 History of Present illness Narrative* [...] - no RLF's noted on gonio or STOCK DEALER on prior exams & gonio has shown [...] of its relevant components. documented in this encounterM[facility]field Hospital12-20-2022 NoteHNO ID: [id number] Author: Mouna Miranda MD Service: ? Author [...] - no RLF's noted on gonio or STOCK DEALER on prior exams AND gonio has shown [...] and agree with all of its relevant components.[facility]12-20-2022 History of Present illness Narrative* Mouna Miranda [...] - no RLF's noted on gonio or STOCK DEALER on prior exams & gonio has shown [...] of its relevant components. documented in this encounterMansfield Hospital11-15-2022 Miscellaneous Notes* Telephone Encounter - ST [...] be concerned and make a sooner appt.... [phone] Royal cell phone documented in this encounterMansfield Hospital10-25-2022 NoteHNO ID: [id number] Author: Mouna Miranda MD Service: ? Author [...] - no RLF's noted on gonio or STOCK DEALER on prior exams AND gonio has shown [...] others. I have seen and examined Royal Karmen Jacquelyn. I have discussed the case and the management of this patient's care with the Resident/Fellow, if applicable. I also have reviewed and agree with the assessment and plan as stated above and agree with all of its relevant components.[facility]10-25-2022 History of Present illness Narrative* Mouna Miranda [...] - no RLF's noted on gonio or STOCK DEALER on prior exams & gonio has shown [...] of its relevant components. documented in this encounterMansfield Hospital09-06-2022 NoteHNO ID: [id number] Author: Mouna Miranda MD Service: ? Author [...] - no RLF's noted on gonio or STOCK DEALER on prior exams AND gonio has shown [...] and agree with all of its relevant components.[facility]09-06-2022 History of Present illness Narrative* Mouna Miranda [...] - no RLF's noted on gonio or STOCK DEALER on prior exams & gonio has shown [...] s/p SLT Both eyes with Dr Eileen Paparizos in 2018 - IOPs were previously controlled [...] of its relevant components. documented in this encounterMansfield Hospital07-18-2022 Miscellaneous Notes* Telephone Encounter - Vikram [...] and have him follow with [facility] in [place] after his CME is under control. * Telephone Encounter - PUJA Fu - 04/09/2022 2:09 PM EDT Patient has been reminded to check with pharmacy 24 to 48hr after request. Pt is identified by name and birthdate: Yes Patient phones requesting refills as follows: Pending Prescriptions Disp Refills COMBIGAN 0.2 %-0.5 % EYE DROPS VIKTORIYA: Yes Please review and advise. documented in this encounterMansfield Hospital07-12-2022 NoteHNO ID: [id number] Author: Mouna Miranda MD Service: ? Author [...] - no RLF's noted on gonio or STOCK DEALER today - gonio shows the angle to [...] and agree with all of its relevant components.[facility]07-12-2022 History of Present illness Narrative* Mouna Miranda [...] - no RLF's noted on gonio or STOCK DEALER today - gonio shows the angle to [...] of its relevant components. documented in this encounterMansfield Hospital03-01-2022 NoteHNO ID: [id number] Author: Mouna Miranda MD Service: ? Author [...] and agree with all of its relevant components.[facility]02-01-2022 NoteHNO ID: [id number] Author: Mouna Miranda MD Service: ? Author [...] in 4-6 weeks with Mouna Miranda MD H40.3894 Primary open angle glaucoma (POAG) of both [...] others. I have seen and examined Royal Karmen Bellamy. I have discussed the case and the management of this patient's care with the Resident/Fellow, if applicable. I also have reviewed and agree with the assessment and plan as stated above and agree with all of its relevant components.[facility]02-01-2002 History general Narrative - Reported* Type Description Date Surgical History LHC PTCA/Stent 10/2001 Surgical History Colonoscopy 01/2008 Surgical History left inguinal hernia 01/2016 Surgical History lap cholecystectomy 02/2011 Hospitalization History see surgical history [facility] Other Evaluation note* Diagnosis CME (cystoid macular edema), right documented in this encounter [facility]* Diagnosis S/P cataract extraction and insertion of intraocular lens, right S/P cataract extraction and insertion of intraocular lens, left documented in this encounter [facility]* Diagnosis CME (cystoid macular edema), right- Primary documented in this encounter [facility]* Diagnosis CME (cystoid macular edema), right documented in this encounter [facility]* Diagnosis CME (cystoid macular edema), right- Primary documented in this encounter [facility]* Diagnosis CME (cystoid macular edema), right- Primary documented in this encounter [facility]* Diagnosis CME (cystoid macular edema), right- Primary Primary open angle glaucoma (POAG) of both eyes, mild stage documented in this encounter [facility] HospitalEvaluation noteNo InformationNortGeisinger-Shamokin [facility] [employer] Other Evaluation noteNo assessment information available [facility] Work Phone: Evaluation note* Diagnosis Onset Date Resolution Status Admit Date Anemia acuteNovember 2023 10:09amASHD (arteriosclerotic heart disease)acute November 2023 10:09amElevated cholesterolacuteNovember 2023 10:09am Essential hypertensionacuteNovember 2023 10:09amHypothyroidacuteNovember 2023 10:09am [facility] Work Phone: Evaluation note* Diagnosis Onset Date Resolution Status Admit Date ASHD (arteriosclerotic heart disease) acuteMay 2024 11:04amChronic venous insufficiency of lower extremityacute January 27, 2025 11:04amElevated cholesterolacuteMay 2024 11:04amEssential hypertensionacuteMay 2024 11:04amHypothyroidacuteMay 2024 11:04am Medicare annual wellness visit, subsequentnoneactiveMay 2024 11:04am Screening PSA (prostate specific antigen)noneactiveMa2024 11:04am [facility] Work Phone: History general Narrative - Reported* Type Description Date Medical History High risk medication use Medical HistoryAnemiaMedical HistoryBenign non-nodular prostatic hyperplasia with lower urinary tract symptomsMedical HistoryHyperlipidemia type IIMedical HistoryEssential hypertensionMedical HistoryASHD (arteriosclerotic heart disease)Medical HistoryCellulitis of left external earMedical HistoryAnterior cervical lymphadenopathySurgical HistoryLHC PTCA/Stent2/2001Surgical History Dnoepbhqebb60/2007Surgical Historyleft inguinal /2016Surgical Historylap sjuyfmrtlaljqxr37/2010Hospitalization Historysee surgical history [facility] [employer] Other History general Narrative - Reported* Type Description Date Medical History High risk medication use Medical HistoryAnemiaMedical HistoryBenign non-nodular prostatic hyperplasia with lower urinary tract symptomsMedical HistoryHyperlipidemia type IIMedical HistoryEssential hypertensionMedical HistoryASHD (arteriosclerotic heart disease)Medical HistoryCellulitis of left external earMedical HistoryAnterior cervical lymphadenopathyMedical HistoryHyperlipidemia, unspecified (resolved 05/17/2020)Medical HistoryEnlarged prostate without lower urinary tract symptoms (resolved 05/17/2020)Medical HistoryEncounter for blood typing (resolved 05/17/2020)Surgical HistoryLHC PTCA/Stent10/2001Surgical HistoryColonoscopy 01/2008Surgical Historyleft inguinal /2016Surgical Historylap ezpyssjlixoouuy10/2011Hospitalization Historysee surgical history [facility] Other Reason for referral (narrative)No reason for referral information availableRegency Hospital [facility] Work Phone: Advance Directives TypeDate RecordedPatient RepresentativeExplanationAdvance Directive(s)07/26/2021 8:07 AMAdvance Directive(s)07/12/2021 10:33 AM Advance Directive Response Recorded Date/ Time Advance Directives No December 02 12:02pm Advance Directive Response Recorded Date/ Time Advance Directives No December 02 11:02am Medications Administered Section Medication OrderMAR ActionAction DateDoseRateSite fluorescein-benoxinate 0.25-0.4 % 1 Drop (FLURESS) 1 Drop, BOTH EYES, DIRECTED, Starting on Sat07/17/22 at 1030, Until Sat07/17/22 at 222, Administer for applanation tonometry. In the event of a Fluress shortage, administer [place]-Fluor 1 drop into both eyes as directed for applanation tonometry Given07/17/2022 10:30 AM EDT1 Drop PHENYLephrine 2.5 % 1 Drop (AK-DILATE, DAO-SYNEPHRINE) 1 Drop, BOTH EYES, DIRECTED, Starting on Sat07/17/22 at 1030, Until Sat07/17/22 at 2229, Administer for dilation PROTECT FROM LIGHT Given07/17/2022 10:30 AM EDT1 Drop tropicamide 1 % 1 Drop (MYDRIACYL) 1 Drop, BOTH EYES, DIRECTED, Starting on Sat07/17/22 at 1030, Until Sat07/17/22 at 2229, Administer for dilation Given07/17/2022 10:30 AM EDT1 Drop Summary Purpose Family History Relationship Condition [...] 03 10:09am Hypothyroid August 03, 2024 10:09am Chief Complaint Admit Date Medicare Wellness January 27, 2025 11:04a m Reason for Visit Admit Date ASHD (arteriosclerotic heart disease) Ma y 2024 11:04am Chronic venous insufficiency of lower ex tremity January 27, 2025 11:04am Elevated cholesterol January 27, 2025 11:04 am Essential hypertension January 27, 2025 11: 04am Hypothyroid January 27, 2025 11:04a m Medicare annual wellness visit, subseque nt January 27, 2025 11:04am Screening PSA (prostate specific antigen ) January 27, 2025 11:04am Chief Complaint Admit Date Flu Shot July 09, 2025 9 :00am Additional Source Comments Source Comments (unrecognize d section and content) In the event this informatio n is protected by the Federal Confidentiality of Alcohol and Drug Abuse Patient Records regulations: The Federal rules restrict any use of the information to criminally investigate or prosecute any alcohol or drug abuse patient.[facility] HospitalIn the event this information is protected by the Federal Confidentiality of Alcohol and Drug Abuse Patient Records regulations: The Federal rules restrict any use of the information to criminally investigate or prosecute any alcohol or drug abuse patient.[facility] HospitalIn the event this information is protected by the Federal Confidentiality of Alcohol and Drug Abuse Patient Records regulations: The Federal rules restrict any use of the information to criminally investigate or prosecute any alcohol or drug abuse patient.[facility] HospitalIn the event this information is protected by the Federal Confidentiality of Alcohol and Drug Abuse Patient Records regulations: The Federal rules restrict any use of the information to criminally investigate or prosecute any alcohol or drug abuse patient.[facility] HospitalIn the event this information is protected by the Federal Confidentiality of Alcohol and Drug Abuse Patient Records regulations: The Federal rules restrict any use of the information to criminally investigate or prosecute any alcohol or drug abuse patient.[facility] HospitalIn the event this information is protected by the Federal Confidentiality of Alcohol and Drug Abuse Patient Records regulations: The Federal rules restrict any use of the information to criminally investigate or prosecute any alcohol or drug abuse patient.[facility] HospitalIn the event this information is protected by the Federal Confidentiality of Alcohol and Drug Abuse Patient Records regulations: The Federal rules restrict any use of the information to criminally investigate or prosecute any alcohol or drug abuse patient.[facility] HospitalIn the event this information is protected by the Federal Confidentiality of Alcohol and Drug Abuse Patient Records regulations: The Federal rules restrict any use of the information to criminally investigate or prosecute any alcohol or drug abuse patient.[facility] HospitalIn the event this information is protected by the Federal Confidentiality of Alcohol and Drug Abuse Patient Records regulations: The Federal rules restrict any use of the information to criminally investigate or prosecute any alcohol or drug abuse patient.[facility] Reason for Visit (unrecogniz ed section and content) ReasonCommentsCystoid Macular Edema Follow UpDFEPHOTOS TAKENReasonCommentsOpened In ErrorReasonOnset DateCommentsRefill Byhxaap52/18/2022ReasonCommentsCystoid Macular Edema Follow Upright eyeReasonCommentsCystoid Macular Edema Follow Up ReasonCommentsPatient Question Care Teams (unrecognized sec tion and content) Team Status: Active Member Role Status Dates Keith Lima DO Primary Care Provider Active Team Status: Active Member Role Status Dates Keith Lima DO Primary Care Provide r, Attending Provider Active Start: November 02, 2024 Team Status: Inactive Member Role Status Dates Keith Lima DO Primary Care Provide r, Attending Provider Active Start: January 27, 2025 End: January 27, 2025Team MemberRelationshipSpecialtyStart DateEnd Date Keith Lima, DO [address] [place] [address] PCP - GeneralInternal Medicine12/06/17Team MemberRelationshipSpecialtyStart Date End Date Keith Lima, DO [address] [place] [address] PCP - GeneralInternal Medicine12/06/17Team MemberRelationshipSpecialtyStart Date End Date Keith Lima, DO [address] [place] [address] PCP - GeneralInternal Medicine12/06/17Team MemberRelationshipSpecialtyStart Date End Date Keith Lima, DO [address] [place] [address] PCP - GeneralInternal Medicine12/06/17Team MemberRelationshipSpecialtyStart Date End Date Keith Lima, DO [address] [place] [address] PCP - GeneralInternal Medicine12/06/17Team MemberRelationshipSpecialtyStart Date End Date Keith Lima, DO [address] [facility] [place] [address] PCP - GeneralInternal Medicine12/06/17Team MemberRelationshipSpecialtyStart Date End Date Keith Lima, DO [address] [facility] [place] [address] PCP - GeneralInternal Medicine12/06/17 Team Status: Inactive Member Role Status Dates Keith Lima DO Primary Care Provide r, Attending Provider Active Start: July 13, 2024 End: July 13, 2024 Team Status: Active Member Role Status Dates Keith Lima DO Primary Care Provide r, Attending Provider Active Start: July 24, 2024 Team Status: Active Member Role Status Dates Keith Lima DO Primary Care Provide r, Attending Provider Active Start: 2024 Team Status: Inactive Member Role Status Dates Keith Lima DO Primary Care Provide r, Attending Provider Active Start: August 03, 2024 End: August 03, 2024 Team Status: Active Member Role/Relationship Status Dates Keith Lima DO Primary Care Provider Active Team Status: Inactive Member Role/Relationship Status Dates Keith Lima DO Primary Care Provider Active Start: July 09, 2025 End: July 09enjadevorah Lima DOAttending ProviderActiveStart: July 09, 2025 End: July 09, 2025 (unrecognized sect ion and content) No Status Records FoundNo Status Records Found INFORMATION SOURCE (unrecogn ized section and content) DATE CREATED AUTHOR 09/15/2022 [facility] DATE CREATED AUTHOR 'S ORGANIZ ATION 01/18/2023 [facility] Goals (unrecognized section and content) Goals may [...] BE BASED ON THE PRIMARY CLINICAL RECORDS. [facility] provides no warranty or guarantee of the accuracy or completeness of information in this document.
[2025-07-29 15:59] LABS: Hematocrit 39.2 % (42.0-54.0); Hemoglobin 13.5 g/dL (14.0-18.0); Immature Granulocytes Abs Auto 0.00 10^3/uL (0.00-0.03); Immature Granulocytes Pct Auto 0.0 % (0.0-0.5); Lymphocytes Absolute Auto 2.6 10^3/uL (1.2-3.8); Mean Corpuscular HGB Conc 34.4 g/dL (29.9-35.2); Mean Corpuscular Hemoglobin 32.2 pg (25.9-34.0); Mean Corpuscular Volume 93.6 fL (80.0-94.0); Platelet Count 215 10^3/uL (150-450); Red Blood Count 4.19 10^6/uL (4.70-6.10); White Blood Count 6.1 10^3/uL (4.0-11.0)
[2025-07-29 17:11] LABS: Iron 67.0 ug/dL (65.0-175.0); Percent Iron Saturation 23.8 %; Total Iron Binding Capacity 282.0 ug/dL (250.0-450.0)
[2025-07-29 17:26] LABS: Ferritin 81.0 ng/mL (26.0-388.0); Folate 28.40 ng/mL (8.60-58.90)
[2025-07-31 08:11] LABS: Vitamin B12 392 pg/mL (232-1245)
== END 2025-07-29 15:29 | disposition home or self-care (01) ==
LOC: LAB 15:30
PROVIDERS: PCP Internal Medicine; Visit Provider Internal Medicine
DX: D64.9 Anemia, unspecified (principal)
CPT/HCPCS: 36415; 82607; 82728; 82746; 83540; 83550; 85025